=== PATIENT | male | born 1970 | race African-American/Black ===

== ENCOUNTER 2016-10-20 23:07 | Emergency (ER) | payer MEDICARE, MEDICAID ==
--- NOTE | 2016-10-21 10:20 | ER Document Report ---
ED Neuro Symptoms/Deficit - General Chief Complaint: Numbness Stated Complaint: SHORTNESS OF BREATH Time seen by provider: 10:03 Mode of Arrival: Ambulatory Notes: 46 yo male came into ER last night via ambulance due to c/o tingling. like pins and needles to whole head, uncoordinated gait with left leg, weak left arm, numbness to left face after smoking crack for 2 days, last 7 pm last night. Hx HIV, metastatic anal cancer. Last radiation and chemotherapy were august. No fever. TRAVEL OUTSIDE OF THE [place] IN LAST 30 DAYS: No - Related Data Allergies/Adverse Reactions: ciprofloxacin [Ciprofloxacin] Allergy (Intermediate, Verified 06/29/16 10:08) rash Sulfa (Sulfonamide Antibiotics) Allergy (Intermediate, Verified 06/29/16 10:08) rash tetracycline [Tetracycline] Allergy (Intermediate, Verified 06/29/16 10:08) hives, rash silver [From Tegaderm AG Mesh] Adverse Reaction (Severe, Verified 06/29/16 10:08 ) rash codeine [Codeine] Adverse Reaction (Intermediate, Verified 06/29/16 10:08) upset stomach Past Medical History - General Information source: Patient - Social History Smoking Status: Current Every Day Smoker Frequency of alcohol use: Occasional Drug Abuse: Cocaine, Marijuana Lives with: Alone Family History: CAD, DM, Hypertension, Thyroid Disfunction, Other - Brother heart attack at age 45 - Past Medical History Cardiac Medical History: Reports: Hx Hypertension Pulmonary Medical History: Reports: Hx Asthma, Hx Bronchitis, Hx Pneumonia Neurological Medical History: Reports: Hx Migraine Renal/ Medical History: Reports: Hx Benign Prostatic Hyperplasia, Hx Kidney Stones Malignancy Medical History: Reports Other - anal, liver, abdominal mets Skin Medical History: Reports Hx Cellulitis, Reports Hx Psoriasis Psychiatric Medical History: Reports: Hx Anxiety, Hx Bipolar Disorder, Hx Depression Infectious Medical History: Reports: Hx HIV Surgical Hx: Negative Past Surgical History: Reports: Hx Rectal Surgery, Other - Port-A-Cath, anal biopsy. Denies: Hx Pacemaker - Immunizations Immunizations up to date: Yes Hx Diphtheria, Pertussis, Tetanus Vaccination: Yes Hx Pneumococcal Vaccination: 04/26/15 Review of Systems - Review of Systems Constitutional: No symptoms reported EENT: No symptoms reported Cardiovascular: No symptoms reported Respiratory: No symptoms reported Gastrointestinal: No symptoms reported Genitourinary: No symptoms reported Male Genitourinary: No symptoms reported Musculoskeletal: No symptoms reported Skin: No symptoms reported Hematologic/Lymphatic: No symptoms reported Neurological/Psychological: See HPI Physical Exam - Vital signs Vitals: Temp Pulse Resp BP Pulse Ox 98.9 F 94 16 111/70 97 10/20/16 23:30 10/20/16 23:30 10/20/16 23:30 10/20/16 23:30 10/20/16 23:30 Interpretation: Normal - General General appearance: Appears well, Alert In distress: None - HEENT Head: Normocephalic, Atraumatic Eyes: Normal, Other - "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 No: Lymphadenopathy - Respiratory Respiratory status: No respiratory distress Chest status: Nontender Breath sounds: Normal Chest palpation: Normal - Cardiovascular Rhythm: Regular Heart sounds: Normal auscultation Murmur: No - Abdominal Inspection: Normal Distension: No distension Bowel sounds: Normal Tenderness: Nontender. No: Tender Organomegaly: No organomegaly - Back Back: Normal, Nontender - Extremities General upper extremity: Normal inspection, Nontender, Normal color, Normal ROM , Normal temperature General lower extremity: Normal inspection, Nontender, Normal color, Normal ROM , Normal temperature, Normal weight bearing. No: Davey's sign - Neurological Neuro grossly intact: Yes Cognition: Normal Orientation: AAOx4 Liv Coma Scale Eye Opening: Spontaneous [place] Coma Scale Verbal: Oriented [place] Coma Scale Motor: Obeys Commands [place] Coma Scale Total: 15 Speech: Normal Motor strength normal: LUE, RUE, LLE, RLE Sensory: Normal Notes: gait in room is stable. - Psychological Associated symptoms: Normal affect, Normal mood - Skin Skin Temperature: Warm Skin Moisture: Dry Skin Color: Normal Skin irregularity: negative: Rash Course - Re-evaluation Re-evalutation: 10/21/16 10:[address] bishop, he rec. MRI with and without 10/21/16 16:[address] avalos about disposisition, pt is drinking water, eating a meal tray. 3rd liter of normal saline, get repeat cpk to see if going down. 10/21/16 18:10 CPK is coming down to 845 he ate 2 meals and drinking water and had 3 L of fluid and Dr. Salcedo says that he can go home 10/21/16 18:19 pt validated resp rate of 36 or pulse ox of 93% but not confirmed by the nurse or I, recheck of vitals at this time is rr 18, pulse ox 98%. pt feels much better. - Vital Signs Vital signs: Temp Pulse Resp BP Pulse Ox 98.9 F 82 17 119/80 98 10/20/16 23:30 10/21/16 10:23 10/21/16 18:01 10/21/16 18:00 10/21/16 18:01 - Laboratory Result Diagrams: 10/21/16 11:20 10/21/16 12:45 Laboratory results interpreted by me: 10/21/16 10/21/16 10/21/16 11:20 12:45 13:35 WBC 2.8 L Plt Count 123 L Absolute Lymphocytes 0.4 L BUN 21 H Glucose 73 L Total Bilirubin 1.4 H AST 78 H Creatine Kinase 1131 H Urine Protein 100 H Urine Ketones 20 H Urine Urobilinogen 2.0 H 10/21/16 16:30 WBC Plt Count Absolute Lymphocytes BUN Glucose Total Bilirubin AST Creatine Kinase 848 H Urine Protein Urine Ketones Urine Urobilinogen Discharge - Discharge Clinical Impression: Cocaine abuse, Arm paresthesia, left, Left leg paresthesias, metastatic anal cancer Rhabdomyolysis Qualifiers: Rhabdomyolysis type: non-traumatic Qualified Code(s): M62.82 - Rhabdomyolysis Condition: Good Disposition: HOME, SELF-CARE Instructions: Dehydration ([facility]), Numbness or Paresthesia ([facility]), Cocaine Abuse ( [facility]) Additional Instructions: do not smoke marijuana or smoke crack drink 2 liters of water daily, continue to drink water tonight 1 more liter to er any new or worsening symptoms Please complete the patient satisfaction survey if you get one, and return it.. If you do not receive a survey, then you can go to the [facility] website, [email or web address] and place your comments about your very good care. Thank you very much. It was a pleasure being your medical provider today. Referrals: SUZIE THOMAS, [Primary Care Provider] - Follow up as needed
--- NOTE | 2016-10-21 11:09 | EKG REPORT ---
SEVERITY:- ABNORMAL ECG - SINUS RHYTHM ST ELEVATION SUGGESTS PERICARDITIS : Confirmed by: Rui Logan 21-Oct-2016 11:07:48
[2016-10-21 11:41] LABS: ABSOLUTE LYMPHOCYTES (AUTO) 0.4 10^3/uL (0.5-4.7); ABSOLUTE MONOCYTES (AUTO) 0.3 10^3/uL (0.1-1.4); BASOPHILS % (AUTO) 1.6 % (0-2); EOSINOPHILS % (AUTO) 1.1 % (0-6); HEMOGLOBIN 15.3 g/dL (13.5-17.0); HGB HCT DIFFERENCE 0.9; LYMPHOCYTES % (AUTO) 16.1 % (13-45); MEAN CORPUSCULAR HEMOGLOBIN 30.6 pg (27.0-33.4); MEAN CORPUSCULAR VOLUME 90 fl (80-97); MONOCYTES % (AUTO) 10.3 % (3-13); RED BLOOD COUNT 4.99 10^6/uL (4.35-5.55); RED CELL DISTRIBUTION WIDTH 13.6 % (11.5-14.0); SEGMENTED NEUTROPHILS % (AUTO) 70.9 % (42-78); WHITE BLOOD COUNT 2.8 10^3/uL (4.0-10.5)
[2016-10-21 13:23] LABS: ALANINE AMINOTRANSFERASE 59 U/L (21-72); ALBUMIN 4.6 g/dL (3.5-5.0); ALKALINE PHOSPHATASE 68 U/L (38-126); ANION GAP 16 (5-19); ASPARTATE AMINO TRANSFERASE 78 U/L (17-59); BILIRUBIN,DIRECT 0.3 mg/dL (0.0-0.4); BILIRUBIN,TOTAL 1.4 mg/dL (0.2-1.3); BLOOD UREA NITROGEN 21 mg/dL (7-20); CALCIUM 9.6 mg/dL (8.4-10.2); CARBON DIOXIDE 25 mmol/L (22-30); CHLORIDE 103 mmol/L (98-107); CREATINE KINASE 1131 U/L (55-170); GLUCOSE 73 mg/dL (75-110); POTASSIUM 3.8 mmol/L (3.6-5.0); SODIUM 144.3 mmol/L (137-145); TOTAL PROTEIN 8.1 g/dL (6.3-8.2)
[2016-10-21] MEDS ORDERED: NORMAL SALINE 1000 ML 1,000 ML IV ONE ×3 (13:27→16:05)
[2016-10-21 13:34] LABS: CREATINE KINASE MB 2.62 ng/mL (<4.55)
[2016-10-21 13:35] LABS: TROPONIN I < 0.012 ng/mL
[2016-10-21 14:26] LABS: APPEARANCE,URINE CLEAR; BILIRUBIN,URINE NEGATIVE (NEGATIVE); GLUCOSE, URINE NEGATIVE (NEGATIVE); KETONES,URINE 20 mg/dL (NEGATIVE); LEUKOCYTE ESTERASE,URINE NEGATIVE (NEGATIVE); NITRITE,URINE NEGATIVE (NEGATIVE); PROTEIN,URINE 100 mg/dL (NEGATIVE); URINE SPECIFIC GRAVITY 1.035
[2016-10-21 14:57] LABS: URINE BARBITURATES SCREEN NEGATIVE; URINE METHADONE SCREEN NEGATIVE; URINE OPIATES LOW NEGATIVE; URINE PHENCYCLIDINE SCREEN NEGATIVE
[2016-10-21 18:17] VITALS: BP 119/80
== END 2016-10-21 18:25 | disposition home or self-care (01) ==
LOC: ER 23:07
DX: F14.10 Cocaine abuse, uncomplicated (principal); R20.0 Anesthesia of skin; C78.5 Secondary malignant neoplasm of large intestine and rectum; M62.82 Rhabdomyolysis; R06.02 Shortness of breath; F12.10 Cannabis abuse, uncomplicated; I10 Essential (primary) hypertension; Z88.3 Allergy status to other anti-infective agents; Z88.2 Allergy status to sulfonamides; Z88.6 Allergy status to analgesic agent; Z87.442 Personal history of urinary calculi; Z21 Asymptomatic human immunodeficiency virus [HIV] infection status
CPT/HCPCS: 93005; 99285; 36415; 87040; 82553; 82550; 85025; 80053; 81001; 84484; 80307; 70553; 71010; 70450; 93010; A9577

== ENCOUNTER → 2016-11-02 | Outpatient (CLI) | payer MEDICARE, MEDICAID | LOC: RAD 17:57 | PROVIDERS: ATTEND Internal Medicine | DX: C21.1 Malignant neoplasm of anal canal (principal) | CPT/HCPCS: 78815; A9552 ==

== ENCOUNTER 2016-11-27 02:05 | Emergency (ER) | payer MEDICARE, MEDICAID ==
[2016-11-27] MEDS ORDERED: ASPIRIN 81 MG TABLET, CHEWABLE PO ONE (02:41)
[2016-11-27] MEDS ORDERED: NORMAL SALINE 1000 ML 1,000 ML IV ONE (02:41)
--- NOTE | 2016-11-27 02:44 | ER Document Report ---
ED General - General Chief Complaint: Numbness of Face Stated Complaint: RIGHT SIDED NUMBNESS Time seen by provider: 02:42 Notes: Patient is a 46-year-old male that comes emergency department for chief complaint of right-sided chest chest tightness, right-sided numbness and tingling sensation including his face, arm, side, and leg, and an episode where he felt lightheaded. Patient also states his mouth is very dry. Patient states he was doing cocaine for the past 3 days, right-sided chest tightness has been intermittent since he started, he also states that tonight he snorted a line that he felt was cocaine but afterwards he was told that it was methamphetamine. Patient states that after snorting the different line is when he started getting these symptoms. Patient has past medical history including hypertension, HIV, anal cancer with previous chemotherapy and radiation therapy , cocaine abuse. Patient denies smoking, denies personal history of cardiac disease, he does have family history of cardiac disease. He is still on hypertensive medications and antiviral medications. TRAVEL OUTSIDE OF THE [place] IN LAST 30 DAYS: No - Related Data Allergies/Adverse Reactions: ciprofloxacin [Ciprofloxacin] Allergy (Intermediate, Verified 06/29/16 10:08) rash Sulfa (Sulfonamide Antibiotics) Allergy (Intermediate, Verified 06/29/16 10:08) rash tetracycline [Tetracycline] Allergy (Intermediate, Verified 06/29/16 10:08) hives, rash silver [From Tegaderm AG Mesh] Adverse Reaction (Severe, Verified 06/29/16 10:08 ) rash codeine [Codeine] Adverse Reaction (Intermediate, Verified 06/29/16 10:08) upset stomach Past Medical History - General Information source: Patient - Social History Smoking Status: Never Smoker Frequency of alcohol use: None Drug Abuse: None Lives with: Family Family History: CAD, DM, Hypertension, Thyroid Disfunction, Other - Brother heart attack at age 45 Patient has suicidal ideation: No - pt denies Patient has homicidal ideation: No - pt denies - Past Medical History Cardiac Medical History: Reports: Hx Hypertension Denies: Hx Coronary Artery Disease, Hx Heart Attack Pulmonary Medical History: Reports: Hx Asthma, Hx Bronchitis, Hx Pneumonia Denies: Hx COPD, Hx Sleep Apnea, Hx Tuberculosis Neurological Medical History: Reports: Hx Migraine. Denies: Hx Cerebrovascular Accident, Hx Seizures Renal/ Medical History: Reports: Hx Benign Prostatic Hyperplasia, Hx Kidney Stones. Denies: Hx Peritoneal Dialysis Musculoskeltal Medical History: Denies Hx Arthritis Skin Medical History: Reports Hx Cellulitis, Reports Hx Psoriasis Psychiatric Medical History: Reports: Hx Anxiety, Hx Bipolar Disorder, Hx Depression Infectious Medical History: Reports: Hx HIV Past Surgical History: Reports: Hx Rectal Surgery, Other - Port-A-Cath, anal biopsy. Denies: Hx Pacemaker - Immunizations Immunizations up to date: Yes Hx Diphtheria, Pertussis, Tetanus Vaccination: Yes Hx Pneumococcal Vaccination: 04/26/15 Review of Systems - Review of Systems Constitutional: No symptoms reported EENT: No symptoms reported Cardiovascular: See HPI Respiratory: No symptoms reported Gastrointestinal: No symptoms reported Genitourinary: No symptoms reported Male Genitourinary: No symptoms reported Musculoskeletal: No symptoms reported Skin: No symptoms reported Hematologic/Lymphatic: No symptoms reported Neurological/Psychological: See HPI Physical Exam - Vital signs Vitals: Temp 98.3 F 11/27/16 02:12 Interpretation: Normal - General General appearance: Appears well, Alert In distress: None - HEENT Head: Normocephalic, Atraumatic Eyes: Normal Conjunctiva: Normal Extraocular movements intact: Yes Eyelashes: Normal Pupils: PERRL - Patient's pupils are normal, not significantly dilated Nasal: Normal Mouth/Lips: Normal Mucous membranes: Normal Pharynx: Normal Neck: Normal - Respiratory Respiratory status: No respiratory distress Chest status: Nontender Breath sounds: Normal. No: Decreased air movement, Wheezing Chest palpation: Normal - Cardiovascular Rhythm: Regular, Tachycardia - Borderline Heart sounds: Normal auscultation, S1 appreciated, S2 appreciated Murmur: No - Abdominal Inspection: Normal Distension: No distension Bowel sounds: Normal Tenderness: Nontender. No: Tender Organomegaly: No organomegaly - Back Back: Normal, Nontender. 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 He states that he thinks he is coming off of this a little bit, given IV fluids. Workup unremarkable including negative troponins despite symptoms going on for the past 3 days according to patient, EKG with no acute ischemic abnormality, shows borderline sinus tachycardia with no T-wave inversions or ST segment changes in consecutive leads, chest x-ray is unremarkable. Normal neurological exam, vague described symptoms, not consistent with a TIA, occurred immediately after patient had used amphetamines and resolved as this began to fade. Low suspicion of acute neurological abnormality. On reevaluation patient states he has some heartburn, requesting something for this, continues to be well appearing, tachycardia resolved my exam, requesting to leave. Patient states he felt like he was "going to a time", agrees that recovery from drugs or dangerous life-threatening and could likely kill him if he continues, he states he plans on stopping this now. Discussed follow-up with primary care, discussed return precautions, patient states understanding and agreement. - Vital Signs Vital signs: Temp Pulse Resp BP Pulse Ox 98.3 F 94 18 119/79 99 11/27/16 02:12 11/27/16 04:49 11/27/16 04:49 11/27/16 04:49 11/27/16 04:49 - Laboratory Result Diagrams: 11/27/16 02:27 11/27/16 02:27 Laboratory results interpreted by me: 11/27/16 11/27/16 02:27 02:27 WBC 3.6 L Sodium 149.1 H Glucose 120 H Calcium 10.3 H Direct Bilirubin 0.5 H Total Protein 9.0 H Discharge - Discharge Clinical Impression: Paresthesia, Recreational drug use, Right-sided chest pain Condition: Stable Disposition: HOME, SELF-CARE Additional Instructions: Laboratory workup shows no acute abnormalities. Do not use recreational drugs such as cocaine or methamphetamine. Follow-up with primary care. Return the emergency department for any returned or concerning worsening symptoms. Referrals: SUZIE THOMAS DO [Primary Care Provider] - Follow up as needed
[2016-11-27 03:05] LABS: ABSOLUTE LYMPHOCYTES (AUTO) 0.5 10^3/uL (0.5-4.7); ABSOLUTE MONOCYTES (AUTO) 0.4 10^3/uL (0.1-1.4); ABSOLUTE NEUT (AUTO) 2.7 10^3/uL (1.7-8.2); BASOPHILS % (AUTO) 0.3 % (0-2); EOSINOPHILS % (AUTO) 0.3 % (0-6); HEMOGLOBIN 14.6 g/dL (13.5-17.0); HGB HCT DIFFERENCE 0.8; LYMPHOCYTES % (AUTO) 14.2 % (13-45); MEAN CORPUSCULAR HEMOGLOBIN 30.1 pg (27.0-33.4); MEAN CORPUSCULAR VOLUME 89 fl (80-97); MONOCYTES % (AUTO) 11.2 % (3-13); RED BLOOD COUNT 4.85 10^6/uL (4.35-5.55); RED CELL DISTRIBUTION WIDTH 13.3 % (11.5-14.0); WHITE BLOOD COUNT 3.6 10^3/uL (4.0-10.5)
[2016-11-27 03:09] LABS: ALANINE AMINOTRANSFERASE 39 U/L (21-72); ALBUMIN 4.9 g/dL (3.5-5.0); ALKALINE PHOSPHATASE 79 U/L (38-126); ANION GAP 18 (5-19); ASPARTATE AMINO TRANSFERASE 33 U/L (17-59); BILIRUBIN,DIRECT 0.5 mg/dL (0.0-0.4); BILIRUBIN,TOTAL 0.9 mg/dL (0.2-1.3); BLOOD UREA NITROGEN 14 mg/dL (7-20); CALCIUM 10.3 mg/dL (8.4-10.2); CARBON DIOXIDE 25 mmol/L (22-30); CHLORIDE 106 mmol/L (98-107); CREATINE KINASE 142 U/L (55-170); GLUCOSE 120 mg/dL (75-110); POTASSIUM 4.2 mmol/L (3.6-5.0); SODIUM 149.1 mmol/L (137-145)
[2016-11-27 03:21] LABS: CREATINE KINASE MB 1.47 ng/mL (<4.55)
[2016-11-27 03:25] LABS: TROPONIN I < 0.012 ng/mL
[2016-11-27] MEDS ORDERED: FAMOTIDINE 20 MG TABLET PO ONE (04:29)
[2016-11-27] MEDS ORDERED: ONDANSETRON 4 MG TAB.RAPDIS PO ONE (04:29)
[2016-11-27 07:06] VITALS: BP 110/81
--- NOTE | 2016-11-27 08:15 | EKG REPORT ---
SEVERITY:- OTHERWISE NORMAL ECG - SINUS TACHYCARDIA : Confirmed by: Olu Torres MD 27-Nov-2016 08:14:53
== END 2016-11-27 07:10 | disposition home or self-care (01) ==
LOC: ER 02:05
DX: R20.0 Anesthesia of skin (principal); R07.9 Chest pain, unspecified; I10 Essential (primary) hypertension; B20 Human immunodeficiency virus [HIV] disease; F19.90 Other psychoactive substance use, unspecified, uncomplicated
CPT/HCPCS: 93005; 99284; 36415; 82553; 82550; 85025; 80053; 84484; 71010; 93010; A9270 ×3; J7030; S0119

== ENCOUNTER → 2017-02-03 | Outpatient (CLI) | payer MEDICARE, MEDICAID ==
--- NOTE | 2017-02-03 12:13 | RADIOLOGY REPORT (SQ) ---
EXAM DESCRIPTION: CT ABD/PELVIS WITH IV ORAL COMPLETED DATE/TIME: 02/03/2017 11:21 am REASON FOR STUDY: ANAL CANCER C21.1 MALIGNANT NEOPLASM OF ANAL CANAL COMPARISON: 05/15/2016 TECHNIQUE: CT scan of the abdomen and pelvis performed using helical scanning technique with dynamic intravenous contrast injection. No oral contrast. Images reviewed with lung, soft tissue, and bone windows. Reconstructed coronal and sagittal MPR images reviewed. Delayed images for evaluation of the urinary system also acquired. All images stored on PACS. All CT scanners at this facility use dose modulation, iterative reconstruction, and/or weight based d osing when appropriate to reduce radiation dose to as low as reasonably achievable (ALARA). [facility]: Dose Right [facility]: CareDose [facility]: Dose Right [facility]: Teradose 4D [facility]: T-Networks CONTRAST TYPE AND DOSE: contrast/concentration: Isovue 370.00 mg/ml; Total Contrast Delivered: 93.0 ml; Total Saline Delivered: 71.0 ml RENAL FUNCTION: Creatinine 1.0 RADIATION DOSE: Up-to-date CT equipment and radiation dose reduction techniques were employed. CTDIv ol: 6.2 - 7.3 mGy. DLP: 748 mGy-cm.. LIMITATIONS: None. FINDINGS: LOWER CHEST: No significant findings. No nodules or infiltrates. LIVER: Normal size. No masses. No dilated ducts. SPLEEN: Normal size. No focal lesions. PANCREAS: No masses. No significant calcifications. No adjacent inflammation or peripancreatic fluid collections. Pancreatic duct not dilated. GALLBLADDER: No identified stones by CT criteria. No inflammatory changes to suggest cholecystitis. ADRENAL GLANDS: No significant masses or asymmetry. RIGHT KIDNEY AND URETER: No solid masses. No significant calcifications. No hydronephrosis or hyd roureter. LEFT KIDNEY AND URETER: No solid masses. No significant calcifications. No hydronephrosis or hydr oureter. AORTA AND VESSELS: No aneurysm. No dissection. Renal arteries, SMA, celiac without stenosis. RETROPERITONEUM: No retroperitoneal adenopathy, hemorrhage or masses. BOWEL AND PERITONEAL CAVITY: No masses or inflammatory changes. No free fluid or peritoneal masses. Loop catheter remains in the rectum. APPENDIX: Normal. PELVIS: Previously described pelvic adenopathy has resolved. ABDOMINAL WALL: No masses. No hernias. BONES: No significant or acute findings. OTHER: No other significant finding. IMPRESSION: No evidence of metastatic disease in the abdomen or pelvis. TECHNICAL DOCUMENTATION: JOB ID: [id number] Quality ID # [id number]: Final reports with documentation of one or more dose reduction techniques (e.g., Au tomated exposure control, adjustment of the mA and/or kV according to patient size, use of iterative reconstruction technique) 2010 [employer]- All Rights Reserved
== END ==
LOC: RAD 09:57
PROVIDERS: ATTEND Internal Medicine
DX: C21.1 Malignant neoplasm of anal canal (principal)
CPT/HCPCS: 74177; 82565

== ENCOUNTER 2017-06-27 21:36 | Emergency (ER) | payer MEDICARE, MEDICAID ==
--- NOTE | 2017-06-27 23:59 | ER Document Report ---
ED General - General Chief Complaint: Drug Abuse Stated Complaint: TROUBLE BREATHING Time Seen by Provider: 06/27/17 23:51 Mode of Arrival: Ambulatory Information source: Patient Notes: This is a 46-year-old man with a history of hypertension, HIV, anal cancer who presents to the emergency room with chest pain. Patient states that he has had gradual onset of chest pain which is been constant since this morning. He does report alcohol use, marijuana and cocaine use. TRAVEL OUTSIDE OF THE [place] IN LAST 30 DAYS: No - HPI Onset: This morning Onset/Duration: Gradual Quality of pain: Dull Severity: Moderate Pain Level: 2 Associated symptoms: Chest pain. denies: Fever, Shortness of breath Exacerbated by: Denies Relieved by: Denies Similar symptoms previously: No Recently seen / treated by doctor: No - Related Data Allergies/Adverse Reactions: ciprofloxacin [Ciprofloxacin] Allergy (Intermediate, Verified 06/27/17 21:48) rash Sulfa (Sulfonamide Antibiotics) Allergy (Intermediate, Verified 06/27/17 21:48) rash tetracycline [Tetracycline] Allergy (Intermediate, Verified 06/27/17 21:48) hives, rash silver [From Tegaderm AG Mesh] Adverse Reaction (Severe, Verified 06/27/17 21:48 ) rash codeine [Codeine] Adverse Reaction (Intermediate, Verified 06/27/17 21:48) upset stomach Past Medical History - General Information source: Patient - Social History Smoking Status: Current Every Day Smoker Cigarette use (# per day): Yes Frequency of alcohol use: Heavy Drug Abuse: Cocaine, Marijuana Lives with: Spouse/Significant other Family History: CAD, DM, Hypertension, Thyroid Disfunction, Other - Brother heart attack at age 45 Patient has suicidal ideation: No Patient has homicidal ideation: No - Past Medical History Cardiac Medical History: Reports: Hx Hypertension Denies: Hx Coronary Artery Disease, Hx Heart Attack Pulmonary Medical History: Reports: Hx Asthma, Hx Bronchitis, Hx Pneumonia Denies: Hx COPD, Hx Sleep Apnea, Hx Tuberculosis Neurological Medical History: Reports: Hx Migraine. Denies: Hx Cerebrovascular Accident, Hx Seizures Renal/ Medical History: Reports: Hx Benign Prostatic Hyperplasia, Hx Kidney Stones. Denies: Hx Peritoneal Dialysis Musculoskeltal Medical History: Denies Hx Arthritis Skin Medical History: Reports Hx Cellulitis, Reports Hx Psoriasis Psychiatric Medical History: Reports: Hx Anxiety, Hx Bipolar Disorder, Hx Depression Infectious Medical History: Reports: Hx HIV Past Surgical History: Reports: Hx Rectal Surgery, Other - Port-A-Cath, anal biopsy. Denies: Hx Pacemaker - Immunizations Immunizations up to date: Yes Hx Diphtheria, Pertussis, Tetanus Vaccination: Yes Hx Pneumococcal Vaccination: 04/26/15 Review of Systems - Review of Systems Constitutional: denies: Chills, Fever EENT: No symptoms reported Cardiovascular: No symptoms reported Respiratory: No symptoms reported Gastrointestinal: No symptoms reported Genitourinary: No symptoms reported Male Genitourinary: No symptoms reported Musculoskeletal: See HPI Skin: No symptoms reported Hematologic/Lymphatic: No symptoms reported Neurological/Psychological: No symptoms reported Physical Exam - Vital signs Vitals: Temp Pulse Resp BP Pulse Ox 99.1 F 92 16 129/79 H 95 06/27/17 21:52 06/27/17 21:52 06/27/17 21:52 06/27/17 21:52 06/27/17 21:52 Notes: Physical exam: GENERAL: 46-year-old man, alert and oriented 3, no acute distress HEAD: Atraumatic, normocephalic. EYES: Pupils equal round and reactive to light, extraocular movements intact, sclera anicteric, conjunctiva are normal. ENT: TMs normal, nares patent, oropharynx clear without exudates. Moist mucous membranes. NECK: Normal range of motion, supple without obvious mass or JVD. LUNGS: Breath sounds clear to auscultation bilaterally and equal. No wheezes rales or rhonchi. HEART: Regular rate and rhythm without murmurs, rubs or gallops. ABDOMEN: Soft, normoactive bowel sounds. No tenderness to palpation. No guarding, no rebound. No masses appreciated. EXTREMITIES: Normal range of motion, no pitting or edema. No clubbing or cyanosis. NEUROLOGICAL: Cranial nerves II through XII grossly intact. Normal speech, moving all extremities. PSYCH: Normal mood, normal affect. SKIN: Warm, Dry, normal turgor, no rashes or lesions noted. Course - Vital Signs Vital signs: Temp Pulse Resp BP Pulse Ox 99.1 F 92 20 121/81 98 06/27/17 21:52 06/27/17 21:52 06/28/17 02:01 06/28/17 02:01 06/28/17 02:01 - Laboratory Result Diagrams: 06/28/17 00:40 06/28/17 00:40 Laboratory results interpreted by me: 06/28/17 06/28/17 00:40 00:40 WBC 3.2 L Sodium 145.9 H Creatine Kinase 640 H - Diagnostic Test Radiology reviewed: Image reviewed, Reports reviewed - Chest x-ray shows no infiltrates or effusions - EKG Interpretation by Me Rate: Normal Rhythm: NSR - EKG shows normal sinus rhythm with a ventricular rate of 89, no acute ST-T wave changes Discharge - Discharge Clinical Impression: Chest wall pain Condition: Stable Disposition: HOME, SELF-CARE Instructions: Chest Wall Pain ([facility]) Additional Instructions: As we discussed, your chest x-ray looked good, your EKG looked very good as well , your heart labs, electrolytes and kidney functions look good as well. Recommendations: Try to avoid the marijuana and cocaine. Continue current medicines Follow-up with your primary care doctor (Dr. Cueva). Return to the emergency room for any worsening symptoms. Referrals: SUZIE CUEVA, [Primary Care Provider] - Follow up as needed
[2017-06-28 00:53] LABS: ABSOLUTE MONOCYTES (AUTO) 0.3 10^3/uL (0.1-1.4)
--- NOTE | 2017-06-28 00:55 | RADIOLOGY REPORT (SQ) ---
EXAM DESCRIPTION: CHEST PA/LAT COMPLETED DATE/TIME: 06/28/2017 12:16 am REASON FOR STUDY: SOB COMPARISON: 07.16.16 EXAM PARAMETERS: NUMBER OF VIEWS: two views TECHNIQUE: Digital Frontal and Lateral radiographic views of the chest acquired. RADIATION DOSE: NA LIMITATIONS: none FINDINGS: LUNGS AND PLEURA: No opacities, masses or pneumothorax. No pleural effusion. MEDIASTINUM AND HILAR STRUCTURES: No masses or contour abnormalities. HEART AND VASCULAR STRUCTURES: Heart normal size. No evidence for failure. BONES: No acute findings. HARDWARE: Mini port central line tip at the right atrium ; consider 9 cm retraction. OTHER: No other significant finding. IMPRESSION: No acute cardiopulmonary findings. Mini port central line tip at the right atrium ; con building coordinator 9 cm retraction. TECHNICAL DOCUMENTATION: JOB ID: [id number] [employer]- All Rights Reserved
[2017-06-28 01:00] LABS: ABSOLUTE LYMPHOCYTES (AUTO) 0.9 10^3/uL (0.5-4.7); BASOPHILS % (AUTO) 0.7 % (0-2); EOSINOPHILS % (AUTO) 0.4 % (0-6); HEMATOCRIT 40.5 % (37.9-51.0); HGB HCT DIFFERENCE 1.5; LYMPHOCYTES % (AUTO) 28.8 % (13-45); MEAN CORPUSCULAR HEMOGLOBIN 30.3 pg (27.0-33.4); MEAN CORPUSCULAR HGB CONC 34.7 g/dL (32.0-36.0); MEAN CORPUSCULAR VOLUME 87 fl (80-97); MONOCYTES % (AUTO) 8.7 % (3-13); RED BLOOD COUNT 4.63 10^6/uL (4.35-5.55); RED CELL DISTRIBUTION WIDTH 13.7 % (11.5-14.0); SEGMENTED NEUTROPHILS % (AUTO) 61.4 % (42-78); WHITE BLOOD COUNT 3.2 10^3/uL (4.0-10.5)
[2017-06-28 01:09] LABS: ALANINE AMINOTRANSFERASE 39 U/L (21-72); ALBUMIN 4.9 g/dL (3.5-5.0); ALKALINE PHOSPHATASE 69 U/L (38-126); ANION GAP 16 (5-19); ASPARTATE AMINO TRANSFERASE 39 U/L (17-59); BILIRUBIN,DIRECT 0.3 mg/dL (0.0-0.4); BILIRUBIN,TOTAL 0.8 mg/dL (0.2-1.3); BLOOD UREA NITROGEN 8 mg/dL (7-20); CALCIUM 9.6 mg/dL (8.4-10.2); CARBON DIOXIDE 25 mmol/L (22-30); CHLORIDE 105 mmol/L (98-107); CREATINE KINASE 640 U/L (55-170); CREATININE RESULT 0.98 mg/dL (0.52-1.25); GLUCOSE 92 mg/dL (75-110); SODIUM 145.9 mmol/L (137-145); TOTAL PROTEIN 8.2 g/dL (6.3-8.2)
[2017-06-28 01:21] LABS: CREATINE KINASE MB 4.07 ng/mL (<4.55)
[2017-06-28 01:22] LABS: TROPONIN I < 0.012 ng/mL
[2017-06-28 02:29] VITALS: BP 121/81
--- NOTE | 2017-06-28 09:11 | EKG REPORT ---
SEVERITY:- BORDERLINE ECG - SINUS RHYTHM EARLY TRANSITION. : Confirmed by: Olu Torres MD 28-Jun-2017 09:10:59
== END 2017-06-28 02:43 | disposition home or self-care (01) ==
LOC: ER 21:36
DX: R07.89 Other chest pain (principal); I10 Essential (primary) hypertension; Z21 Asymptomatic human immunodeficiency virus [HIV] infection status; Z88.1 Allergy status to other antibiotic agents; Z88.2 Allergy status to sulfonamides; J45.909 Unspecified asthma, uncomplicated; Z85.9 Personal history of malignant neoplasm, unspecified; Z82.49 Family history of ischemic heart disease and other diseases of the circulatory system
CPT/HCPCS: 36415; 71020; 80053; 82550; 82553; 84484; 85025; 93005; 93010; 99285

== ENCOUNTER → 2017-08-06 | Outpatient (CLI) | payer MEDICARE, MEDICAID ==
--- NOTE | 2017-08-06 14:35 | RADIOLOGY REPORT (SQ) ---
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 The patient is less than 50 years old. TECHNIQUE: CT scan of the chest performed using helical scanning technique with dynamic intravenous contrast injection. Images reviewed with lung, soft tissue and bone windows. Reconstructed coronal a nd sagittal MPR images reviewed. All images stored on PACS. CT scan of the abdomen and pelvis performed with intravenous and with oral contrastusing helical scan brie technique with dynamic intravenous contrast injection. Images reviewed with lung, soft tissue a nd bone windows. Reconstructed coronal and sagittal MPR images reviewed. Delayed images for evaluat ion of the urinary system also acquired and evaluated. All images stored on PACS. All CT scanners at this facility use dose modulation, iterative reconstruction, and/or weight based d osing when appropriate to reduce radiation dose to as low as reasonably achievable (ALARA). [facility]: Dose Right [facility]: CareDose [facility]: Dose Right [facility]: Teradose 4D [facility]: Smart Technologies RADIATION DOSE: CT Rad equipment meets quality standard of care and radiation dose reduction techniq ues were employed. CTDIvol: 6.8 - 9.1 mGy. DLP: 1295 mGy-cm. . LIMITATIONS: None. FINDINGS: CHEST: LUNGS AND PLEURA: There are small foci of lung parenchymal scarring in the right lung apex, left uppe r lobe, lingula, and right lung base all stable compared to 2016. No worrisome parenchymal nodules f or metastatic disease. No pleural effusion. No pneumothorax. HILAR AND MEDIASTINAL STRUCTURES: No identified masses or abnormal nodes. HEART AND VASCULAR STRUCTURES: No aneurysm or dissection. No central pulmonary emboli. No pericardi al effusion. HARDWARE: Right-sided permanent central line tip in the right atrium. THYROID AND OTHER SOFT TISSUES: Thyroid unremarkable. Stable lipoma or dermoid at the sternal notch, 3.5 cm in diameter. BONES: No significant finding. OTHER: No other significant finding. ABDOMEN AND PELVIS: LIVER: Normal size. No masses. No dilated ducts. SPLEEN: Normal size. No focal lesions. PANCREAS: No masses. No significant calcifications. No adjacent inflammation or peripancreatic fluid collections. Pancreatic duct not dilated. GALLBLADDER: No identified stones by CT criteria. No inflammatory changes to suggest cholecystitis. ADRENAL GLANDS: No significant masses or asymmetry. RIGHT KIDNEY AND URETER: No solid masses. No significant calcification. No hydronephrosis or hydroure ter. LEFT KIDNEY AND URETER: No solid masses. No significant calcification. No hydronephrosis or hydrouret er. AORTA AND VESSELS: No aneurysm. No dissection. Renal arteries, SMA, celiac without stenosis. RETROPERITONEUM: No retroperitoneal adenopathy, hemorrhage or masses. BOWEL AND PERITONEAL CAVITY: No masses or inflammatory changes. No free fluid or peritoneal masses. APPENDIX: Normal. ABDOMINAL WALL: No masses. No hernias. BONES: No significant or acute findings. PELVIS: No other significant finding. No masses or adenopathy. IMPRESSION: No CT evidence of recurrent or metastatic disease to the chest abdomen or pelvis TECHNICAL DOCUMENTATION: JOB ID: [id number] Quality ID # [id number]: Final reports with documentation of one or more dose reduction techniques (e.g., Au tomated exposure control, adjustment of the mA and/or kV according to patient size, use of iterative reconstruction technique) 2010 [employer]- All Rights Reserved
== END ==
LOC: RAD 08:57
PROVIDERS: ATTEND Internal Medicine
DX: C21.1 Malignant neoplasm of anal canal (principal)
CPT/HCPCS: 71260; 74177

== ENCOUNTER 2017-09-19 16:13 | Emergency (ER) | payer OTHER, MEDICARE, MEDICAID ==
[2017-09-19] MEDS ORDERED: OXYCODONE-ACETAMINOPHEN 5-325 MG TABLET PO ONE (17:29)
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
[2017-09-19 19:10] VITALS: BP 118/73
== END 2017-09-19 19:30 | disposition home or self-care (01) ==
LOC: ER 16:13
DX: S63.502A Unspecified sprain of left wrist, initial encounter (principal); S93.402A Sprain of unspecified ligament of left ankle, initial encounter; S39.012A Strain of muscle, fascia and tendon of lower back, initial encounter; V59.59XA Passenger in pick-up truck or van injured in collision with other motor vehicles in traffic accident, initial encounter; I10 Essential (primary) hypertension; J45.909 Unspecified asthma, uncomplicated; Z21 Asymptomatic human immunodeficiency virus [HIV] infection status; Z88.1 Allergy status to other antibiotic agents; Z88.2 Allergy status to sulfonamides; Z85.048 Personal history of other malignant neoplasm of rectum, rectosigmoid junction, and anus
CPT/HCPCS: 99284; 73610; 72110; 72070; 73110; L1902; L3908

== ENCOUNTER 2017-09-22 08:43 | Emergency (ER) | payer OTHER, MEDICARE, MEDICAID ==
[2017-09-22 08:48] VITALS: BP 121/96
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
== END 2017-09-22 09:20 | disposition home or self-care (01) ==
LOC: ER 08:43
DX: S29.012A Strain of muscle and tendon of back wall of thorax, initial encounter (principal); V49.9XXA Car occupant (driver) (passenger) injured in unspecified traffic accident, initial encounter; Z87.891 Personal history of nicotine dependence; I10 Essential (primary) hypertension; J45.909 Unspecified asthma, uncomplicated; Z21 Asymptomatic human immunodeficiency virus [HIV] infection status
CPT/HCPCS: 99281

== ENCOUNTER 2017-12-13 12:08 | Emergency (ER) | payer OTHER, MEDICARE, MEDICAID ==
--- NOTE | 2017-12-13 12:19 | ER Document Report ---
ED Psych Disorder / Suicide - General Mode of Arrival: Medic Information source: Emergency Med Personnel Cannot obtain history due to: Intoxicated TRAVEL OUTSIDE OF THE [place] IN LAST 30 DAYS: No - HPI Patient complains to provider of: Overdose Onset: This morning Onset was: Cannot confirm Quality of pain: No pain - NONE APPARENT Suicide Risk Factors: Male, Other mental health dx. Suicide Attempt Method: Overdose Overdose of: Alcohol, Anticholinergic - MECLIZINE, Benzodiazepine, Other - HCTZ , COCAINE Strength: 10 mg VALIUM Amount: 25 Time of ingestion: 10:00 Associated symptoms: Other - STUPOROUS <FEDERICO MATTA - Last Filed: 12/13/17 18:33> <TED FRANK - Last Filed: 12/14/17 09:35> - General Chief Complaint: Overdose Stated Complaint: PSYCH EVAL Time Seen by Provider: 12/13/17 12:19 - Related Data Allergies/Adverse Reactions: ciprofloxacin [Ciprofloxacin] Allergy (Intermediate, Verified 09/22/17 08:44) rash Sulfa (Sulfonamide Antibiotics) Allergy (Intermediate, Verified 09/22/17 08:44) rash tetracycline [Tetracycline] Allergy (Intermediate, Verified 09/22/17 08:44) hives, rash silver [From Tegaderm AG Mesh] Adverse Reaction (Severe, Verified 09/22/17 08:44 ) rash codeine [Codeine] Adverse Reaction (Intermediate, Verified 09/22/17 08:44) upset stomach Past Medical History - General Information source[facility] Records Cannot obtain history due to: Intoxicated - Social History Smoking Status: Unknown if Ever Smoked Family History: CAD, DM, Hypertension, Thyroid Disfunction, Other - Brother heart attack at age 45 Patient has suicidal ideation: Yes - EMS REPORTS HE VERBALIZED SAME TODAY - Past Medical History Cardiac Medical History: Reports: Hx Hypertension Denies: Hx Coronary Artery Disease, Hx Heart Attack Pulmonary Medical History: Reports: Hx Asthma, Hx Bronchitis, Hx Pneumonia Denies: Hx COPD, Hx Sleep Apnea, Hx Tuberculosis Neurological Medical History: Reports: Hx Migraine. Denies: Hx Cerebrovascular Accident, Hx Seizures Renal/ Medical History: Reports: Hx Benign Prostatic Hyperplasia, Hx Kidney Stones. 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 Denies: Hx Pacemaker - Immunizations Immunizations up to date: Yes Hx Diphtheria, Pertussis, Tetanus Vaccination: Yes Hx Pneumococcal Vaccination: 04/26/15 <FEDERICO MATTA - Last Filed: 12/13/17 18:33> Review of Systems - Review of Systems -: Yes ROS unobtainable due to patient's medical condition <FEDERICO MATTA - Last Filed: 12/13/17 18:33> Physical Exam - Vital signs Interpretation: Tachypneic. No: Hypotensive, Hypertensive - General General appearance: Lethargic - RESPONDS TO PAIN. No: Alert In distress: None - HEENT Head: Normocephalic Eyes: Normal Conjunctiva: Normal Ears: Normal Nasal: Normal Mouth/Lips: Normal Mucous membranes: Dry - Respiratory Respiratory status: No respiratory distress Breath sounds: Normal - Cardiovascular Rhythm: Regular Heart sounds: Normal auscultation Murmur: No - Abdominal Inspection: Normal Distension: No distension Bowel sounds: Hypoactive - Extremities General upper extremity: Normal inspection General lower extremity: Normal inspection - Neurological Neuro grossly intact: No - STUPOROUS, LOCALIZES PAIN & MOANS & OPENS EYES Liv Coma Scale Eye Opening: To Pain Liv Coma Scale Verbal: Confused - SAID "THANK YOU" EXAMINER WAS LEAVING ROOM [place] Coma Scale Motor: Localizes to Pain Liv Coma Scale Total: 11 - Psychological Associated symptoms: Other - UNABLE TO ASSESS - Skin Skin Temperature: Warm Skin Moisture: Dry Skin Color: Normal Skin Turgor: Elastic <FEDERICO MATTA - Last Filed: 12/13/17 18:33> - Vital signs Vitals: Resp Pulse Ox 22 H 96 12/13/17 12:16 12/13/17 12:16 Course - Laboratory Result Diagrams: 12/13/17 12:30 12/13/17 12:30 - EKG Interpretation by Nc EKG shows normal: Sinus rhythm, [place], Intervals, QRS Complexes, ST-T Waves Rate: Normal Rhythm: NSR <FEDERICO MATTA - Last Filed: 12/13/17 18:33> - Laboratory Result Diagrams: 12/13/17 12:30 12/13/17 12:30 <TED FRANK - Last Filed: 12/14/17 09:35> - Re-evaluation Re-evalutation: 12/14/17 09:35 Patient evaluated and assessed, has no medical complaint. Resting comfortably. Available records and notes are reviewed. Exam shows patient to be resting comfortably, normal respiratory excursion, nonfocal exam, otherwise benign. Disposition pending final psychiatric assessment and evaluation. (TED FRANK) - Vital Signs Vital signs: Temp Pulse Resp BP Pulse Ox 97.6 F 0 L 107/76 99 12/14/17 06:38 12/14/17 06:01 12/14/17 06:01 12/14/17 06:01 - Laboratory Laboratory results interpreted by me: 12/13/17 12/13/17 12/13/17 12:30 12:30 12:30 WBC 2.9 L Hgb 13.1 L Absolute Neutrophils 1.5 L Sodium 145.2 H Potassium 3.5 L Creatine Kinase 461 H CK-MB (CK-2) 4.73 H Salicylates < 1.0 L Acetaminophen < 10 L 12/13/17 18:47 WBC Hgb Absolute Neutrophils Sodium Potassium Creatine Kinase CK-MB (CK-2) Salicylates Acetaminophen < 10 L Discharge <FEDERICO MATTA - Last Filed: 12/13/17 18:33> <TED FRANK - Last Filed: 12/14/17 09:35> - Discharge Clinical Impression: Suicidal overdose Qualifiers: Encounter type: initial encounter Qualified Code(s): T50.902A - Poisoning by unspecified drugs, medicaments and biological substances, intentional self-harm , initial encounter Condition: Good Disposition: PSYCH HOSP/UNIT
[2017-12-13] MEDS ORDERED: CARVEDILOL 6.25 MG TABLET PO ONE (12:24)
[2017-12-13 12:58] LABS: ABSOLUTE LYMPHOCYTES (AUTO) 1.1 10^3/uL (0.5-4.7); ABSOLUTE MONOCYTES (AUTO) 0.3 10^3/uL (0.1-1.4); ABSOLUTE NEUT (AUTO) 1.5 10^3/uL (1.7-8.2); BASOPHILS % (AUTO) 0.6 % (0-2); EOSINOPHILS % (AUTO) 0.2 % (0-6); HEMATOCRIT 38.7 % (37.9-51.0); HEMOGLOBIN 13.1 g/dL (13.5-17.0); LYMPHOCYTES % (AUTO) 38.9 % (13-45); MEAN CORPUSCULAR HEMOGLOBIN 29.7 pg (27.0-33.4); MEAN CORPUSCULAR HGB CONC 33.8 g/dL (32.0-36.0); MEAN CORPUSCULAR VOLUME 88 fl (80-97); MONOCYTES % (AUTO) 9.7 % (3-13); PLATELET COUNT 184 10^3/uL (150-450); RED BLOOD COUNT 4.41 10^6/uL (4.35-5.55); RED CELL DISTRIBUTION WIDTH 13.9 % (11.5-14.0); SEGMENTED NEUTROPHILS % (AUTO) 50.6 % (42-78); TOTAL CELLS COUNTED % (AUTO) 100 %; WHITE BLOOD COUNT 2.9 10^3/uL (4.0-10.5)
[2017-12-13] MEDS ORDERED: NORMAL SALINE 1000 ML 500 ML IV PRN (13:05)
[2017-12-13 13:07] LABS: ALANINE AMINOTRANSFERASE 36 U/L (21-72); ALBUMIN 4.3 g/dL (3.5-5.0); ALKALINE PHOSPHATASE 62 U/L (38-126); ANION GAP 13 (5-19); ASPARTATE AMINO TRANSFERASE 39 U/L (17-59); BILIRUBIN,DIRECT 0.4 mg/dL (0.0-0.4); BILIRUBIN,TOTAL 0.5 mg/dL (0.2-1.3); BLOOD UREA NITROGEN 12 mg/dL (7-20); CALCIUM 9.5 mg/dL (8.4-10.2); CARBON DIOXIDE 29 mmol/L (22-30); CHLORIDE 103 mmol/L (98-107); CREATINE KINASE 461 U/L (55-170); GLUCOSE 97 mg/dL (75-110); POTASSIUM 3.5 mmol/L (3.6-5.0); SODIUM 145.2 mmol/L (137-145); TOTAL PROTEIN 7.7 g/dL (6.3-8.2)
[2017-12-13 13:09] LABS: ACETAMINOPHEN < 10 ug/mL (10-30); ALCOHOL < 10 mg/dL (NONE DETECTED); SALICYLATE < 1.0 mg/dL (2.0-20.0)
[2017-12-13 13:17] LABS: CREATINE KINASE MB 4.73 ng/mL (<4.55)
[2017-12-13 13:18] LABS: TROPONIN I < 0.012 ng/mL
[2017-12-13] MEDS ORDERED: NORMAL SALINE 1000 ML 1,000 ML IV PRN (15:49)
--- NOTE | 2017-12-13 16:15 | EKG REPORT ---
SEVERITY:- NORMAL ECG - SINUS RHYTHM : Confirmed by: Rui Logan 13-Dec-2017 16:14:36
--- NOTE | 2017-12-13 17:34 | PSYCHOLOGICAL NOTE ---
Psych Note - Psych Note Psych Note: Reason for consult: Allegedly suicidal ideation/intentional overdose Contact Permissions: None Eval: 5:15 PM final disposition: 5:30 PM Patient is a 47 year old male. Patient stated " I did not take those pills for a good time". Patient stated " where am I". Medication recommendations made by contracted [facility] provider Dr. Thiago MD includes: None Diagnosis: At this time not enough information was provided Impression/Plan: Recommendation for involuntary commitment petition only, mental health to reassess at a later time. Clinician observed patient's speech was slurred. Patient was unable to answer assessment questions due to being under the influence of multiple pills. Patient's physician stated per EMS patient took 25 tabs of Valium and smoked "crack" while endorsing suicidal ideation, and stated it was intentional. Attending physician in agreement with plan and disposition. Consulted with Dr. Faulkner regarding the management and care of patient.
[2017-12-13 19:00] LABS: APPEARANCE,URINE CLEAR; BILIRUBIN,URINE NEGATIVE (NEGATIVE); COLOR,URINE YELLOW; GLUCOSE, URINE NEGATIVE (NEGATIVE); KETONES,URINE NEGATIVE (NEGATIVE); LEUKOCYTE ESTERASE,URINE NEGATIVE (NEGATIVE); NITRITE,URINE NEGATIVE (NEGATIVE); PROTEIN,URINE NEGATIVE (NEGATIVE); UROBILINOGEN,URINE NEGATIVE mg/dL (<2.0)
[2017-12-13 19:18] LABS: URINE AMPHETAMINES SCREEN NEGATIVE; URINE BARBITURATES SCREEN NEGATIVE; URINE BENZODIAZEPINES SCREEN UNCONFIRMED POSITIVE; URINE COCAINE SCREEN UNCONFIRMED POSITIVE; URINE MARIJUANA (THC) SCREEN NEGATIVE; URINE METHADONE SCREEN NEGATIVE; URINE PHENCYCLIDINE SCREEN NEGATIVE
--- NOTE | 2017-12-14 09:52 | PSYCHOLOGICAL NOTE ---
Psych Note - Psych Note Psych Note: Reason for consult: Overdose/ IVC re-eval Contact Permissions: None Patient is a 47 year old male. Patient reports he has been smoking crack cocaine for over 10 years . Patient reports he has tried to stop in the past and can go a day without using. Patient reports he was using throughout the day yesterday. Patient reports that "he guesses" he may have made comments about suicide when he was high because he also took his pills of valium with it. Patient reports he took the valium because it is prescribed to him as he has a disease that it helps deal with. Patient reports he does not want to go to a detox facility. Patient reports he does not feel like hurt, harming, or killing himself or others. Patient reports he has never been to an inpatient psychiatric facility before. Patient reports he does not have a therapy provider in the community, patient reports he has never had a mental health diagnosis before. Diagnosis: 304.20 (F14.20) Cocaine Use Disorder, Moderate Impression/Plan: Recommendation to rescind involuntary commitment due to patient not meeting criteria [place] GS 122C. Patient denied SI/HI and is not responding to internal stimuli at this time. Clinician observed patient disclosed he has utilized crack cocaine for approximately 10 years.Clinician provided education regarding substance use disorder, and effects to health. Clinician coordinated with [facility] for continuity of care, providing patient information, patient stated he would contact [facility] upon discharge for a full assessment for substance use treatment but would not go to detox. Attending physician in agreement with plan and disposition. Consulted with Dr. Faulkner regarding the management and care of patient.
[2017-12-14 10:54] VITALS: BP 117/78
== END 2017-12-14 12:22 | disposition home or self-care (01) ==
LOC: ER 12:08
DX: T50.902A Poisoning by unspecified drugs, medicaments and biological substances, intentional self-harm, initial encounter (principal); F14.90 Cocaine use, unspecified, uncomplicated; F19.10 Other psychoactive substance abuse, uncomplicated; R06.82 Tachypnea, not elsewhere classified; I10 Essential (primary) hypertension; J45.909 Unspecified asthma, uncomplicated
CPT/HCPCS: 93005; 99285; 96360; 96361; 36415; 82553; 80307 ×4; 82550; 85025; 80053; 81001; 84484; 93010; J7030

== ENCOUNTER 2017-12-14 12:52 | Emergency (ER) | payer OTHER, MEDICARE, MEDICAID ==
--- NOTE | 2017-12-14 13:10 | ER Document Report ---
ED Medical Screen (RME) - General Chief Complaint: Fall Stated Complaint: FALL DIZZY Time Seen by Provider: 12/14/17 12:59 Notes: RAPID MEDICAL EVALUATION DISCLOSURE I have seen this patient as part of a Rapid Medical Evaluation and, if applicable, placed any initially appropriate orders. The patient will be seen and fully evaluated, including a full history and physical exam, by a provider ( in Main ED or Fast Track) when a room becomes available. 47-year-old male just discharged here from the ED after evaluation for suicidal ideations and overdose, back again because he walked into the lobby and "became lightheaded and passed out". He fell onto his right side and hit his head. He does not think he takes any blood thinners. He does not have pain elsewhere but does note he feels short of breath. EXAM No right-sided scalp soft tissue swelling or TTP No cervical spine or paracervical muscle TTP TRAVEL OUTSIDE OF THE [place] IN LAST 30 DAYS: No - Related Data Allergies/Adverse Reactions: ciprofloxacin [Ciprofloxacin] Allergy (Intermediate, Verified 12/14/17 13:02) rash Sulfa (Sulfonamide Antibiotics) Allergy (Intermediate, Verified 12/14/17 13:02) rash tetracycline [Tetracycline] Allergy (Intermediate, Verified 12/14/17 13:02) hives, rash silver [From Tegaderm AG Mesh] Adverse Reaction (Severe, Verified 12/14/17 13:02 ) rash codeine [Codeine] Adverse Reaction (Intermediate, Verified 12/14/17 13:02) upset stomach Past Medical History - Social History Chew tobacco use (# tins/day): No - Past Medical History Cardiac Medical History: Reports: Hx Hypertension Denies: Hx Coronary Artery Disease, Hx Heart Attack Pulmonary Medical History: Reports: Hx Asthma, Hx Bronchitis, Hx Pneumonia Denies: Hx COPD, Hx Sleep Apnea, Hx Tuberculosis Neurological Medical History: Reports: Hx Migraine. Denies: Hx Cerebrovascular Accident, Hx Seizures Renal/ Medical History: Reports: Hx Benign Prostatic Hyperplasia, Hx Kidney Stones. Denies: Hx Peritoneal Dialysis Musculoskeltal Medical History: Denies Hx Arthritis Skin Medical History: Reports Hx Cellulitis, Reports Hx Psoriasis Psychiatric Medical History: Reports: Hx Anxiety, Hx Bipolar Disorder, Hx Depression Infectious Medical History: Reports: Hx HIV Past Surgical History: Reports: Hx Rectal Surgery, Other - Port-A-Cath, anal biopsy. Denies: Hx Pacemaker - Immunizations Immunizations up to date: Yes Hx Diphtheria, Pertussis, Tetanus Vaccination: Yes Physical Exam - Vital signs Vitals: Temp Pulse BP Pulse Ox 97.8 F 104 H 155/107 H 98 12/14/17 12:58 12/14/17 12:58 12/14/17 12:58 12/14/17 12:58 Course - Vital Signs Vital signs: Temp Pulse Resp BP Pulse Ox 97.8 F 104 H 155/107 H 98 12/14/17 12:58 12/14/17 12:58 12/14/17 12:58 12/14/17 12:58
--- NOTE | 2017-12-14 13:54 | RADIOLOGY REPORT (SQ) ---
EXAM DESCRIPTION: CHEST 2 VIEWS COMPLETED DATE/TIME: 12/14/2017 1:43 pm REASON FOR STUDY: SOB COMPARISON: Two-view chest 06/28/2017 EXAM PARAMETERS: NUMBER OF VIEWS: two views TECHNIQUE: Digital Frontal and Lateral radiographic views of the chest acquired. RADIATION DOSE: NA LIMITATIONS: none FINDINGS: LUNGS AND PLEURA: No opacities, masses or pneumothorax. No pleural effusion. MEDIASTINUM AND HILAR STRUCTURES: No masses or contour abnormalities. HEART AND VASCULAR STRUCTURES: Heart normal size. No evidence for failure. BONES: No acute findings. HARDWARE: Right-sided permanent central line tip in the right atrium. OTHER: No other significant finding. IMPRESSION: No acute changes TECHNICAL DOCUMENTATION: JOB ID: [id number] [employer]- All Rights Reserved Reading location - IP/workstation name: [email or web address]
--- NOTE | 2017-12-14 13:55 | RADIOLOGY REPORT (SQ) ---
EXAM DESCRIPTION: CT HEAD WITHOUT COMPLETED DATE/TIME: 12/14/2017 1:44 pm REASON FOR STUDY: s/p fall in lobby, hit head COMPARISON: CT brain 10/21/2016, 02/16/2012 TECHNIQUE: Axial images acquired through the brain without intravenous contrast. Images reviewed wi th bone, brain and subdural windows. Additional sagittal and coronal reconstructions were generated. Images stored on PACS. All CT scanners at this facility use dose modulation, iterative reconstruction, and/or weight based d osing when appropriate to reduce radiation dose to as low as reasonably achievable (ALARA). [facility]: Dose Right [facility]: CareDose [facility]: Dose Right [facility]: Teradose 4D [facility]: Picosun RADIATION DOSE: CT Rad equipment meets quality standard of care and radiation dose reduction techniq ues were employed. CTDIvol: 53.2 mGy. DLP: 1044 mGy-cm. mGy. LIMITATIONS: None. FINDINGS: VENTRICLES: Normal size and contour. CEREBRUM: No masses. No hemorrhage. No midline shift. No evidence for acute infarction. Normal gra y/white matter differentiation. No areas of low density in the white matter. CEREBELLUM: No masses. No hemorrhage. No alteration of density. No evidence for acute infarction. EXTRAAXIAL SPACES: No fluid collections. No masses. ORBITS AND GLOBE: No intra- or extraconal masses. Normal contour of globe without masses. CALVARIUM: No fracture. PARANASAL SINUSES: No fluid or mucosal thickening. SOFT TISSUES: No mass or hematoma. OTHER: No other significant finding. IMPRESSION: NORMAL BRAIN CT WITHOUT CONTRAST. EVIDENCE OF ACUTE STROKE: NO. COMMENT: Quality ID # [id number]: Final reports with documentation of one or more dose reduction techniques (e.g., Automated exposure control, adjustment of the mA and/or kV according to patient size, use of iterative reconstruction technique) TECHNICAL DOCUMENTATION: JOB ID: [id number] [employer]- All Rights Reserved Reading location - IP/workstation name: [email or web address]
--- NOTE | 2017-12-14 13:58 | RADIOLOGY REPORT (SQ) ---
EXAM DESCRIPTION: CT CERVICAL SPINE WITHOUT COMPLETED DATE/TIME: 12/14/2017 1:44 pm REASON FOR STUDY: s/p fall COMPARISON: CT chest 08/06/2017, 05/15/2016 PET-CT 11/02/2016, 06/01/2016 TECHNIQUE: Axial images acquired through the cervical spine without intravenous contrast. Images re viewed with lung, soft tissue and bone windows. Reconstructed coronal and sagittal MPR images review ed. Images stored on PACS. All CT scanners at this facility use dose modulation, iterative reconstruction, and/or weight based d osing when appropriate to reduce radiation dose to as low as reasonably achievable (ALARA). [facility]: Dose Right [facility]: CareDose [facility]: Dose Right [facility]: Teradose 4D [facility]: Dialective RADIATION DOSE: CT Rad equipment meets quality standard of care and radiation dose reduction techniq ues were employed. CTDIvol: 23.9 mGy. DLP: 451 mGy-cm. mGy. LIMITATIONS: None. FINDINGS: ALIGNMENT: Anatomic. MINERALIZATION: Normal. VERTEBRAL BODIES: No fractures or dislocation. DISCS: No significant disc disease. FACETS, LATERAL MASSES, POSTERIOR ELEMENTS: No fractures. No dislocation. No acute findings. HARDWARE: None in the spine. Right-sided central line. VISUALIZED RIBS: No fractures. LUNG APICES AND SOFT TISSUES: Stable benign dermoid in the sternal notch, 3 x 2 cm in size. OTHER: No other significant finding. IMPRESSION: NO ACUTE OR SIGNIFICANT FINDINGS IN THE CERVICAL SPINE. TECHNICAL DOCUMENTATION: JOB ID: [id number] Quality ID # [id number]: Final reports with documentation of one or more dose reduction techniques (e.g., Au tomated exposure control, adjustment of the mA and/or kV according to patient size, use of iterative reconstruction technique) 2010 [employer]- All Rights Reserved Reading location - IP/workstation name: [email or web address]
[2017-12-14 14:55] LABS: ABSOLUTE LYMPHOCYTES (AUTO) 1.1 10^3/uL (0.5-4.7); ABSOLUTE MONOCYTES (AUTO) 0.2 10^3/uL (0.1-1.4); ABSOLUTE NEUT (AUTO) 2.1 10^3/uL (1.7-8.2); BASOPHILS % (AUTO) 0.8 % (0-2); EOSINOPHILS % (AUTO) 1.2 % (0-6); HEMATOCRIT 45.3 % (37.9-51.0); LYMPHOCYTES % (AUTO) 32.3 % (13-45); MEAN CORPUSCULAR HEMOGLOBIN 29.6 pg (27.0-33.4); MEAN CORPUSCULAR HGB CONC 33.6 g/dL (32.0-36.0); MEAN CORPUSCULAR VOLUME 88 fl (80-97); MONOCYTES % (AUTO) 6.2 % (3-13); PLATELET COUNT 177 10^3/uL (150-450); RED BLOOD COUNT 5.15 10^6/uL (4.35-5.55); RED CELL DISTRIBUTION WIDTH 13.6 % (11.5-14.0); SEGMENTED NEUTROPHILS % (AUTO) 59.5 % (42-78); TOTAL CELLS COUNTED % (AUTO) 100 %; WHITE BLOOD COUNT 3.5 10^3/uL (4.0-10.5)
[2017-12-14 15:08] LABS: ANION GAP 15 (5-19); BLOOD UREA NITROGEN 13 mg/dL (7-20); CALCIUM 9.5 mg/dL (8.4-10.2); CARBON DIOXIDE 28 mmol/L (22-30); CHLORIDE 105 mmol/L (98-107); GLUCOSE 89 mg/dL (75-110); POTASSIUM 4.4 mmol/L (3.6-5.0); SODIUM 147.7 mmol/L (137-145)
[2017-12-14 15:13] LABS: HEMOGLOBIN 15.2 g/dL (13.5-17.0)
--- NOTE | 2017-12-14 18:05 | EKG REPORT ---
SEVERITY:- OTHERWISE NORMAL ECG - SINUS RHYTHM EARLY PRECORDIAL TRANSITION : Confirmed by: Olu Torres MD 14-Dec-2017 18:04:28
--- NOTE | 2017-12-14 20:15 | ER Document Report ---
ED General - General Chief Complaint: Fall Stated Complaint: FALL DIZZY Time Seen by Provider: 12/14/17 12:59 Notes: Patient is a 47-year-old male who presents after he apparently became lightheaded and fell in the lobby. The patient had been evaluated for psychiatric issue and had just been discharged. He apparently did not lose consciousness but states he fell backwards and struck his head on the right side. He states that since that time he has had a dull, throbbing, aching pain to the area. Nothing improves or worsens his pain. He denies any chest pain or shortness of breath either before or after the episode of lightheadedness and near syncope. He denies a history of similar episodes in the past. He does not take any form of anticoagulation. At the time of my evaluation he denies any ongoing symptoms and states he feels quite well. TRAVEL OUTSIDE OF THE [place] IN LAST 30 DAYS: No - Related Data Allergies/Adverse Reactions: ciprofloxacin [Ciprofloxacin] Allergy (Intermediate, Verified 12/14/17 13:02) rash Sulfa (Sulfonamide Antibiotics) Allergy (Intermediate, Verified 12/14/17 13:02) rash tetracycline [Tetracycline] Allergy (Intermediate, Verified 12/14/17 13:02) hives, rash silver [From Tegaderm AG Mesh] Adverse Reaction (Severe, Verified 12/14/17 13:02 ) rash codeine [Codeine] Adverse Reaction (Intermediate, Verified 12/14/17 13:02) upset stomach Past Medical History - General Information source: Patient - Social History Smoking Status: Never Smoker Chew tobacco use (# tins/day): No Frequency of alcohol use: None Drug Abuse: None Lives with: Family Family History: CAD, DM, Hypertension, Thyroid Disfunction, Other - Brother heart attack at age 45 Patient has suicidal ideation: No Patient has homicidal ideation: No - Past Medical History Cardiac Medical History: Reports: Hx Hypertension Denies: Hx Coronary Artery Disease, Hx Heart Attack Pulmonary Medical History: Reports: Hx Asthma, Hx Bronchitis, Hx Pneumonia Denies: Hx COPD, Hx Sleep Apnea, Hx Tuberculosis Neurological Medical History: Reports: Hx Migraine. Denies: Hx Cerebrovascular Accident, Hx Seizures Renal/ Medical History: Reports: Hx Benign Prostatic Hyperplasia, Hx Kidney Stones. Denies: Hx Peritoneal Dialysis Musculoskeltal Medical History: Denies Hx Arthritis Skin Medical History: Reports Hx Cellulitis, Reports Hx Psoriasis Psychiatric Medical History: Reports: Hx Anxiety, Hx Bipolar Disorder, Hx Depression Infectious Medical History: Reports: Hx HIV Past Surgical History: Reports: Hx Rectal Surgery, Other - Port-A-Cath, anal biopsy. Denies: Hx Pacemaker - Immunizations Immunizations up to date: Yes Hx Diphtheria, Pertussis, Tetanus Vaccination: Yes Hx Pneumococcal Vaccination: 04/26/15 Review of Systems - Review of Systems Notes: Constitutional: Negative for fever. Eyes: Negative for visual changes. ENT: Negative for facial injury Cardiovascular: Negative for chest injury. Positive for near syncope Respiratory: Negative for shortness of breath. Gastrointestinal: Negative for abdominal injury. Genitourinary: Negative for genital injury Musculoskeletal: Negative for back injury. Skin: Negative for laceration/abrasions. Neurological: Positive for head injury Physical Exam - Vital signs Vitals: Temp Pulse BP Pulse Ox 97.8 F 104 H 155/107 H 98 12/14/17 12:58 12/14/17 12:58 12/14/17 12:58 12/14/17 12:58 Interpretation: Hypertensive, Tachycardic Notes: PHYSICAL EXAMINATION: GENERAL: Well-appearing, no acute distress. HEAD: Atraumatic, normocephalic. EYES: Pupils equal round and reactive to light, extraocular movements intact, sclera anicteric, conjunctiva are normal. ENT: nares patent, no oral pharyngeal trauma. No hemotympanum, no [place]'s sign , no raccoon eyes. NECK: No midline cervical spine tenderness. Patient able to move their head to 45 bilaterally without any discomfort. LUNGS: Breath sounds clear to auscultation bilaterally and equal. No wheezes rales or rhonchi. HEART: Regular rate and rhythm without murmurs. CHEST WALL: No ecchymosis over the chest wall. ABDOMEN: Soft, nontender, normoactive bowel sounds. No guarding, no rebound. No seatbelt sign. EXTREMITIES: Normal range of motion, no pitting or edema. No long bone deformities. BACK: No midline spinal tenderness, step-offs, or deformities. NEUROLOGICAL: Face symmetric. Tongue protrudes midline. Extraocular motions intact. Pupils are 2 mm and equally reactive. Normal speech, normal gait. 5 out of 5 strength in both the distal and proximal upper and lower extremities bilaterally. Sensation is grossly intact throughout. Finger to nose testing normal. Pronator drift normal. PSYCH: Normal mood, normal affect. SKIN: Warm, Dry, normal turgor, no rashes or lesions noted. Course - Re-evaluation Re-evalutation: 12/14/17 20:14 Presentation of syncope of unclear etiology. Patient normotensive, alert, without focal neurologic deficits at time of arrival. Denies syncope was during exertion. No preceding symptoms of palpitations, chest pain, or shortness of breath. Patient asymptomatic at time of arrival. EKG is without evidence of HCOM , right heart strain, ST changes to suggest ischemia, prolong QTc, delta wave, epsilon wave, or Brugada syndrome. Patient denies any family history of sudden cardiac , personal history of of structural heart disease. Patient denies any symptoms to suggest an acute PE, MA, TAD, SAH, seizure, or acute GI bleed as the etiology of their syncope today. On exam, no murmurs to suggest critical aortic stenosis as possible etiology. In triage a CT of the head and cervical spine were ordered on this patient although notably he is negative by both [place] head and C-spine criteria. These have been reviewed and are noted to be normal. Based on overall clinical history, exam findings, vitals, and patients appearance, I feel it is safe for patient to be discharged home at this time with close outpatient follow-up and strict return precautions. Patient is in agreement with this plan, has verbalized indications for return to ED, and questions have been answered. - Vital Signs Vital signs: Temp Pulse Resp BP Pulse Ox 98.1 F 76 16 113/82 100 12/14/17 20:49 12/14/17 20:49 12/14/17 20:49 12/14/17 20:49 12/14/17 20:49 - Laboratory Result Diagrams: 12/14/17 14:35 12/14/17 14:35 Laboratory results interpreted by me: 12/14/17 12/14/17 14:35 14:35 WBC 3.5 L Sodium 147.7 H - Diagnostic Test Radiology reviewed: Image reviewed, Reports reviewed Radiology results interpreted by me: 12/14/17 20:15 CT head: No acute intercranial bleed or evidence of skull fracture Chest x-ray: No acute infiltrate or pneumothorax - EKG Interpretation by Me Additional EKG results interpreted by me: 12/14/17 20:15 Sinus rhythm. Rate 88. No ST elevations or depressions. QTC is 417. Discharge - Discharge Clinical Impression: Near syncope Head trauma Qualifiers: Encounter type: initial encounter Qualified Code(s): S09.90XA - Unspecified injury of head, initial encounter Condition: Good Disposition: HOME, SELF-CARE Additional Instructions: You were seen today after an episode of passing out. Your EKG here is normal. At this time, we do not feel that your episode of passing out was from any life- threatening cause. Please drink plenty of fluids over the next several days. Return to emergency department if you have any further episodes of syncope, headache, weakness, numbness, chest pain, or shortness of breath. Please follow up closely with your primary care physician. You have likely sustained a contusion (bruise) to your head. If you had a CT scan done, it did not show any evidence of serious injury or bleeding. Symptoms to expect from a concussion include nausea, mild to moderate headache, difficulty concentrating or sleeping, and mild lightheadedness. These symptoms should improve over the next few days to weeks. Return to the emergency department or follow-up with your primary care doctor if your symptoms are not improving over this time. Signs of a more serious head injury include vomiting , severe headache, excessive sleepiness or confusion, and weakness or numbness in your face, arms or legs. Return immediately to the Emergency Department if you experience any of these more concerning symptoms. Rest, avoid strenuous physical or mental activity, and avoid activities that could potentially result in another head injury until all your symptoms from this head injury are completely resolved for at least 2-3 weeks. If you participate in sports, get cleared by your doctor or workplace trainer and assessor before returning to play. You may take ibuprofen or acetaminophen over the counter according to label instructions for mild headache or scalp soreness. Forms: Return to Work Referrals: SUZIE THOMAS DO [Primary Care Provider] - Follow up as needed
[2017-12-14 22:08] VITALS: BP 113/82
== END 2017-12-14 20:49 | disposition home or self-care (01) ==
LOC: ER 12:52
DX: R55 Syncope and collapse (principal); S09.90XA Unspecified injury of head, initial encounter; R51 Headache; W18.39XA Other fall on same level, initial encounter; Y93.89 Activity, other specified; Y92.238 Other place in hospital as the place of occurrence of the external cause; I10 Essential (primary) hypertension; J45.909 Unspecified asthma, uncomplicated; Z21 Asymptomatic human immunodeficiency virus [HIV] infection status; Z88.1 Allergy status to other antibiotic agents; Z88.2 Allergy status to sulfonamides
CPT/HCPCS: 36415; 70450; 71046; 72125; 80048; 84484; 85025; 93005; 93010; 99285

== ENCOUNTER 2018-01-27 23:27 | Emergency (ER) | payer MEDICARE, MEDICAID ==
--- NOTE | 2018-01-27 23:38 | ER Document Report ---
ED General <SHRUTHI SONG - Last Filed: 01/28/18 13:30> <SUZIE PERKINS - Last Filed: 01/28/18 15:56> - General TRAVEL OUTSIDE OF THE [place] IN LAST 30 DAYS: No <IRINA SMITH - Last Filed: 01/29/18 02:05> - General Stated Complaint: CHEST TIGHTNESS Time Seen by Provider: 01/27/18 23:33 Notes: Patient is a 47-year-old male who presents with complaint of some chest tightness and pain. Patient has a history of the scarring in the past due to cocaine abuse. Has been admitted to the hospital in the past for this. Patient admits he took cocaine yesterday as well as did it today around noon and 2 PM. He says he has had some continuous chest tightness since last night. He received nitro in a months which relieved the tightness. This causes blood pressure dropped some. By time he arrived here his blood pressure is back to normal. He denies any syncope. No passing out. No headache. No other complaints at this time. Patient does have history of HIV as well as history of renal cancer. He does have family history of ND with a brother had an ND at age 45. The patient himself has never had an ND nor has had a history of coronary disease. 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 Grimaldo. No recent leg pain or leg swelling. No history of PE or DVT. (IRINA SMITH) - Related Data Allergies/Adverse Reactions: ciprofloxacin [Ciprofloxacin] Allergy (Intermediate, Verified 12/14/17 13:02) rash Sulfa (Sulfonamide Antibiotics) Allergy (Intermediate, Verified 12/14/17 13:02) rash tetracycline [Tetracycline] Allergy (Intermediate, Verified 12/14/17 13:02) hives, rash silver [From Tegaderm AG Mesh] Adverse Reaction (Severe, Verified 12/14/17 13:02 ) rash codeine [Codeine] Adverse Reaction (Intermediate, Verified 12/14/17 13:02) upset stomach Past Medical History - Social History Smoking Status: Current Some Day Smoker Frequency of alcohol use: None Drug Abuse: Cocaine Family History: CAD, DM, Hypertension, Thyroid Disfunction, Other - Brother heart attack at age 45 - Past Medical History Cardiac Medical History: Reports: Hx Hypertension Denies: Hx Coronary Artery Disease, Hx Heart Attack Pulmonary Medical History: Reports: Hx Asthma, Hx Bronchitis, Hx Pneumonia Denies: Hx COPD, Hx Sleep Apnea, Hx Tuberculosis Neurological Medical History: Reports: Hx Migraine. Denies: Hx Cerebrovascular Accident, Hx Seizures Renal/ Medical History: Reports: Hx Benign Prostatic Hyperplasia, Hx Kidney Stones. Denies: Hx Peritoneal Dialysis Musculoskeltal Medical History: Denies Hx Arthritis Skin Medical History: Reports Hx Cellulitis, Reports Hx Psoriasis Psychiatric Medical History: Reports: Hx Anxiety, Hx Bipolar Disorder, Hx Depression Infectious Medical History: Reports: Hx HIV Past Surgical History: Reports: Hx Rectal Surgery, Other - Port-A-Cath, anal biopsy. Denies: Hx Pacemaker - Immunizations Immunizations up to date: Yes Hx Diphtheria, Pertussis, Tetanus Vaccination: Yes Hx Pneumococcal Vaccination: 04/26/15 <IRINA SMITH - Last Filed: 01/29/18 02:05> Review of Systems <SHRUTHI SONG - Last Filed: 01/28/18 13:30> <SUZIE PERKINS - Last Filed: 01/28/18 15:56> <IRINA SMITH - Last Filed: 01/29/18 02:05> - Review of Systems Notes: My Normal Review Basic REVIEW OF SYSTEMS: CONSTITUTIONAL : Denies fever, chills, or sweats. Denies recent illness. EENT: Denies eye, ear, throat, or mouth pain or symptoms. Denies nasal or sinus congestion. CARDIOVASCULAR: Chest pain RESPIRATORY: Denies cough, cold, or chest congestion. Denies shortness of breath, difficulty breathing, or wheezing. GASTROINTESTINAL: Denies abdominal pain. Denies nausea, vomiting, or diarrhea. Denies constipation. Last BM: GENITOURINARY: Denies difficulty urinating, painful urination, burning, frequency, or blood in urine. MUSCULOSKELETAL: Denies neck or back pain or joint pain or swelling. SKIN: Denies rash or skin lesions. NEUROLOGICAL: Denies altered mental status or loss of consciousness. Denies headache. Denies weakness or paralysis or loss of use of either side. Denies problems with gait or speech. Denies sensory or motor loss. ALL OTHER SYSTEMS REVIEWED AND NEGATIVE. (IRINA SMITH) Physical Exam <SHRUTHI SONG - Last Filed: 01/28/18 13:30> <SUZIE PERKINS - Last Filed: 01/28/18 15:56> <IRINA SMITH - Last Filed: 01/29/18 02:05> - Vital signs Vitals: Temp Pulse Resp BP Pulse Ox 97.9 F 67 20 110/65 96 01/28/18 09:28 01/28/18 09:28 01/28/18 09:28 01/28/18 09:28 01/28/18 09:28 - Notes Notes: General Appearance: Well nourished, alert, cooperative, no acute distress, no obvious discomfort. Well-appearing. Vitals: reviewed, See vital signs table. Head: no swelling or tenderness to the head Eyes: PERRL, EOMI, Conjuctiva clear Mouth: No decreasd moisture Lungs: No wheezing, No rales, No rhonci, No accessory muscle use, good air exchange bilaterally. Heart: Normal rate, Regular rythm, No murmur, no rub Abdomen: Normal BS, soft, No rigidity, No abdominal tenderness, No guarding, no rebound, no abdominal masses, no organomegaly Extremities: strength 5/5 in all extremities, good pulses in all extremities, no swelling or tenderness in the extremities, no edema. Skin: warm, dry, appropriate color, no rash Neuro: speech clear, oriented x 3, normal affect, responds appropriately to questions. (IRINA SMITH) Course - Laboratory Result Diagrams: 01/27/18 23:41 01/27/18 23:41 <SHRUTHI SONG - Last Filed: 01/28/18 13:30> - Laboratory Result Diagrams: 01/27/18 23:41 01/27/18 23:41 <SUZIE PERKINS - Last Filed: 01/28/18 15:56> - Laboratory Result Diagrams: 01/27/18 23:41 01/27/18 23:41 <IRINA SMITH - Last Filed: 01/29/18 02:05> - Re-evaluation Re-evalutation: 01/28/18 02:55 Patient is chest pain-free and doing well. We will get repeat troponin. 01/28/18 05:00 She continues to remain chest pain-free. Repeat troponin is normal. Repeat EKG does not show any concerning findings. After informed patient that everything looked okay that we would discharge him home and follow-up with cardiology outpatient patient then has dictated and said that he has been having thoughts of depression I would like speak with psychiatry morning. He says he has had some thoughts of suicide but has not yet had a plan. We will hold the patient to morning time to speak with psychiatry as he requested. Patient is medically stable for psychiatric evaluation. 01/28/18 05:03 (IRINA SMITH) - Vital Signs Vital signs: Temp Pulse Resp BP Pulse Ox 98.0 F 58 L 18 119/75 98 01/28/18 16:14 01/28/18 16:14 01/28/18 16:14 01/28/18 16:14 01/28/18 16:14 - Laboratory Laboratory results interpreted by me: 01/27/18 01/27/18 01/28/18 23:41 23:41 03:05 WBC 3.9 L RDW 14.6 H Sodium 147.4 H Chloride 108 H Glucose 125 H AST 67 H Total Protein 8.4 H Urine Protein Urine Urobilinogen Salicylates 1.3 L Acetaminophen < 10 L 01/28/18 07:20 WBC RDW Sodium Chloride Glucose AST Total Protein Urine Protein 100 H Urine Urobilinogen 2.0 H Salicylates Acetaminophen - EKG Interpretation by Me Additional EKG results interpreted by me: 01/27/18 23:38 EKG is reviewed and interpreted by me. EKG shows sinus tachycardia with rate of [address] segment elevation or depression. No ischemic T-wave inversions. HI interval, QRS duration are within normal range. QT interval slightly prolonged. Old EKG for comparison is from December 14, 2017. 01/27/18 23:39 01/28/18 03:18 EKG #2 is reviewed and interpreted by me. EKG shows sinus rhythm with rate of [address] segment changes comparison to his previous EKG. HI interval, QRS duration, QTc intervals are within normal range. (IRINA SMITH) Discharge <SHRUTHI SONG - Last Filed: 01/28/18 13:30> <SUZIE PERKINS - Last Filed: 01/28/18 15:56> <IRINA SMITH - Last Filed: 01/29/18 02:05> - Discharge Clinical Impression: Cocaine abuse Chest pain Qualifiers: Chest pain type: unspecified Qualified Code(s): R07.9 - Chest pain, unspecified Depression Qualifiers: Depression Type: unspecified Qualified Code(s): F32.9 - Major depressive disorder, single episode, unspecified Condition: Good Disposition: HOME, SELF-CARE Additional Instructions: You were seen in the emergency department and consulted by the Behavioral Health Team for depression and suicidal ideation, and determined appropriate for discharge. You requested information on detox services and indicated interested in [facility] for cocaine abuse and addiction. You currently do not have an outpatient provider but were provided Medicaid/ Medicare resources and referral outpatient substance abuse and mental health resources for the [place], [place] area. [facility] has accepted you into their program for detox. Your Emergency Department Provider has requested you to please stop using cocaine as continued use of cocaine will eventually lead to a heart attack and potentially . Please follow up with the flocculator operator, Dr. Centeno, for reevaluation and possible outpatient stress test. DEPRESSION: Your evaluation reveals that you have depression. Symptoms may be vague, they often include disturbance of sleep, fatigue, loss of appetite, and general loss of interest in life. Depression may be a side effect of drugs, or a reaction to a major change in your life, many cases have no known cause. If depression is acute, and related to a major loss in your life, you can expect it to clear completely with time. If you have been depressed a long time , are prone to repeated bouts of depression or low mood, or have been thinking of suicide, get help. Depression can be treated with anti-depressant medication and counseling. Long-term depression will often take a few weeks to clear, even with appropriate medication. Follow-up care is important. SUICIDAL IDEATION: Suicidal ideation is a common medical term for thoughts about suicide, which may be as detailed as a formulated plan, without the suicidal act itself. Although most people who undergo suicidal ideation do not commit suicide, some go on to make suicide attempts. The range of suicidal ideation varies greatly from fleeting to detailed planning, role playing, and unsuccessful attempts. While thoughts about suicide are common, most people do not carry out serious actions to commit suicide. Based upon your evaluation and discussion with you, we do not believe you are currently at risk to act upon your thoughts of suicide. You have agreed to return to the Emergency Department, at any time , if you feel inclined to act upon your suicidal thoughts. FOLLOW-UP CARE: If you have been referred to a physician for follow-up care, call the physician s office for an appointment as you were instructed or within the next two days. If you experience worsening or a significant change in your symptoms, notify the physician immediately or return to the Emergency Department at any time for re-evaluation. Referrals: SUZIE THOMAS DO [Primary Care Provider] - Follow up in 3-5 days KATINA KEVIN MD [ACTIVE STAFF] - 01/29/18 (call to make a close follow up appointment)
[2018-01-27 23:55] LABS: ABSOLUTE LYMPHOCYTES (AUTO) 1.3 10^3/uL (0.5-4.7); ABSOLUTE MONOCYTES (AUTO) 0.3 10^3/uL (0.1-1.4); ABSOLUTE NEUT (AUTO) 2.3 10^3/uL (1.7-8.2); BASOPHILS % (AUTO) 0.7 % (0-2); EOSINOPHILS % (AUTO) 0.2 % (0-6); HEMATOCRIT 42.2 % (37.9-51.0); HEMOGLOBIN 14.3 g/dL (13.5-17.0); LYMPHOCYTES % (AUTO) 34.1 % (13-45); MEAN CORPUSCULAR HEMOGLOBIN 29.4 pg (27.0-33.4); MEAN CORPUSCULAR HGB CONC 33.9 g/dL (32.0-36.0); MEAN CORPUSCULAR VOLUME 87 fl (80-97); MONOCYTES % (AUTO) 7.8 % (3-13); PLATELET COUNT 171 10^3/uL (150-450); RED BLOOD COUNT 4.87 10^6/uL (4.35-5.55); RED CELL DISTRIBUTION WIDTH 14.6 % (11.5-14.0); SEGMENTED NEUTROPHILS % (AUTO) 57.2 % (42-78); TOTAL CELLS COUNTED % (AUTO) 100 %; WHITE BLOOD COUNT 3.9 10^3/uL (4.0-10.5)
[2018-01-28 00:18] LABS: ALANINE AMINOTRANSFERASE 37 U/L (21-72); ALBUMIN 4.9 g/dL (3.5-5.0); ALKALINE PHOSPHATASE 75 U/L (38-126); ANION GAP 13 (5-19); ASPARTATE AMINO TRANSFERASE 67 U/L (17-59); BILIRUBIN,DIRECT 0.4 mg/dL (0.0-0.4); BILIRUBIN,TOTAL 0.7 mg/dL (0.2-1.3); BLOOD UREA NITROGEN 12 mg/dL (7-20); CALCIUM 9.8 mg/dL (8.4-10.2); CARBON DIOXIDE 26 mmol/L (22-30); CHLORIDE 108 mmol/L (98-107); GLUCOSE 125 mg/dL (75-110); POTASSIUM 3.9 mmol/L (3.6-5.0); SODIUM 147.4 mmol/L (137-145); TOTAL PROTEIN 8.4 g/dL (6.3-8.2)
--- NOTE | 2018-01-28 00:36 | RADIOLOGY REPORT (SQ) ---
EXAM DESCRIPTION: XR CHEST 1 VIEW COMPLETED DATE/TME: 01/27/2018 23:33 CLINICAL HISTORY: 47 years Male, chest pain COMPARISON: None. NUMBER OF VIEWS/TECHNIQUE: 1/AP FINDINGS: Adequate lung volume, clear parenchyma, normal cardiac silhouette, and jugular central line tip at the mid right atrium; consider 7 cm retraction. And intact bony thorax. IMPRESSION: No acute cardiopulmonary findings.
[2018-01-28 05:58] LABS: SALICYLATE 1.3 mg/dL (2.0-20.0)
[2018-01-28 06:00] LABS: ACETAMINOPHEN < 10 ug/mL (10-30)
--- NOTE | 2018-01-28 07:31 | EKG REPORT ---
SEVERITY:- OTHERWISE NORMAL ECG - SINUS TACHYCARDIA EARLY TRANSITION, NO CHANGE FROM PREV. ELG BORDERLINE PROLONGED QT INTERVAL : Confirmed by: Olu Torres MD 28-Jan-2018 07:31:00
--- NOTE | 2018-01-28 07:31 | EKG REPORT ---
SEVERITY:- OTHERWISE NORMAL ECG - SINUS RHYTHM EARLY TRANSITION : Confirmed by: Olu Torres MD 28-Jan-2018 07:31:09
[2018-01-28 08:39] LABS: URINE AMPHETAMINES SCREEN NEGATIVE; URINE BARBITURATES SCREEN NEGATIVE; URINE BENZODIAZEPINES SCREEN NEGATIVE; URINE COCAINE SCREEN UNCONFIRMED POSITIVE; URINE MARIJUANA (THC) SCREEN UNCONFIRMED POSITIVE; URINE METHADONE SCREEN NEGATIVE; URINE PHENCYCLIDINE SCREEN NEGATIVE
[2018-01-28 08:54] LABS: APPEARANCE,URINE SLIGHTLY-CLOUDY; BILIRUBIN,URINE NEGATIVE (NEGATIVE); GLUCOSE, URINE NEGATIVE (NEGATIVE); KETONES,URINE NEGATIVE (NEGATIVE); LEUKOCYTE ESTERASE,URINE NEGATIVE (NEGATIVE); NITRITE,URINE NEGATIVE (NEGATIVE); PROTEIN,URINE 100 mg/dL (NEGATIVE); URINE SPECIFIC GRAVITY 1.033
[2018-01-28 08:55] LABS: COLOR,URINE YELLOW
--- NOTE | 2018-01-28 10:00 | ER Document Report ---
Doctor's Note Notes: 01/28/18 09:59 Rounds: Chart reviewed and patient interviewed. Patient being evaluated for cocaine abuse and chest pain. Says he is no longer having chest pains this morning. His workup including 2 EKGs and 2 troponins during his stay here have all been normal/negative. Other history of significance is patient is HIV positive. 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 Dr. Grimaldo is his attending oncologist. Vital signs are all normal. Patient appears to be medically stable for transfer or discharge. Sanya Nichols MD
[2018-01-28 16:22] VITALS: BP 119/75
== END 2018-01-28 16:22 | disposition home or self-care (01) ==
LOC: ER 23:27
DX: R07.89 Other chest pain (principal); F14.10 Cocaine abuse, uncomplicated; F32.9 Major depressive disorder, single episode, unspecified; R45.851 Suicidal ideations; I10 Essential (primary) hypertension; F17.200 Nicotine dependence, unspecified, uncomplicated; Z21 Asymptomatic human immunodeficiency virus [HIV] infection status; Z82.49 Family history of ischemic heart disease and other diseases of the circulatory system; Z85.9 Personal history of malignant neoplasm, unspecified; Z88.1 Allergy status to other antibiotic agents; Z88.2 Allergy status to sulfonamides
CPT/HCPCS: 36415; 71045; 80053; 80307; 81001; 84484; 85025; 93005; 93010; 99285

== ENCOUNTER 2018-07-29 20:22 | Observation (INO) | payer MEDICARE, MEDICAID ==
[2018-07-29 20:53] LABS: ABSOLUTE LYMPHOCYTES (AUTO) 1.3 10^3/uL (0.5-4.7); ABSOLUTE MONOCYTES (AUTO) 0.3 10^3/uL (0.1-1.4); ABSOLUTE NEUT (AUTO) 2.2 10^3/uL (1.7-8.2); BASOPHILS % (AUTO) 0.8 % (0-2); HEMOGLOBIN 13.6 g/dL (13.5-17.0); LYMPHOCYTES % (AUTO) 33.7 % (13-45); MEAN CORPUSCULAR HEMOGLOBIN 29.9 pg (27.0-33.4); MEAN CORPUSCULAR VOLUME 86 fl (80-97); MONOCYTES % (AUTO) 7.8 % (3-13); PLATELET COUNT 196 10^3/uL (150-450); RED BLOOD COUNT 4.56 10^6/uL (4.35-5.55); RED CELL DISTRIBUTION WIDTH 14.7 % (11.5-14.0); SEGMENTED NEUTROPHILS % (AUTO) 57.7 % (42-78); TOTAL CELLS COUNTED % (AUTO) 100 %; WHITE BLOOD COUNT 3.7 10^3/uL (4.0-10.5)
[2018-07-29 21:08] LABS: ALANINE AMINOTRANSFERASE 37 U/L (21-72); ALBUMIN 4.8 g/dL (3.5-5.0); ALKALINE PHOSPHATASE 64 U/L (38-126); ANION GAP 13 (5-19); ASPARTATE AMINO TRANSFERASE 26 U/L (17-59); BILIRUBIN,DIRECT 0.2 mg/dL (0.0-0.4); BILIRUBIN,TOTAL 0.7 mg/dL (0.2-1.3); BLOOD UREA NITROGEN 14 mg/dL (7-20); CALCIUM 9.8 mg/dL (8.4-10.2); CARBON DIOXIDE 27 mmol/L (22-30); CHLORIDE 104 mmol/L (98-107); GLUCOSE 110 mg/dL (75-110); POTASSIUM 3.5 mmol/L (3.6-5.0); SODIUM 144.4 mmol/L (137-145); TOTAL PROTEIN 8.5 g/dL (6.3-8.2)
[2018-07-29] MEDS ORDERED: ASPIRIN 81 MG TABLET, CHEWABLE PO ONE (21:10)
--- NOTE | 2018-07-29 21:17 | ER Document Report ---
ED Cardiac - General Stated Complaint: RESPIRATORY DISTRESS Time Seen by Provider: 07/29/18 20:39 TRAVEL OUTSIDE OF THE [place] IN LAST 30 DAYS: No - HPI Patient complains to provider of: Chest pain Use of: Cocaine Was the onset of pain: Sudden Is the pain a: New problem Chest pain location: Other - Right-sided Quality of pain: Achy Chest pain radiation location: Right arm Severity now: None Severity at worst: Moderate Pain level currently: Denies Positive cardiac history: No Exacerbated by: Denies Relieved by: Nothing Notes: Patient is a 48-year-old male that presents to the emergency department for chief complaint of chest pain. Patient reports right-sided chest pain that started today. He states it is achy, sharp and intermittent. The pain lasts for a few moments and then resolve. He has radiation of the pain into his right shoulder. He reports associated nausea, diaphoresis and shortness of breath. Patient states that he has a history of cocaine abuse and had been trying to go to , he relapsed yesterday. He denies history of cardiac disease and has never had a cardiac stress test before. Past Medical History: Anal cancer, hypertension, HIV, right eye blindness, Mnire's Past Surgical History: Anal surgeries Social History: Again abuse. Denies tobacco and alcohol Family History: Reviewed and noncontributory for presenting illness Allergies: Reviewed, see documented allergy list. REVIEW OF SYSTEMS: CONSTITUTIONAL : No fever No chills No diaphoresis No recent illness EENT: No vision changes No congestion No sore throat CARDIOVASCULAR: chest pain No palpitations RESPIRATORY: shortness of breath No cough No difficulty breathing GASTROINTESTINAL: No abdominal pain nausea No vomiting No diarrhea GENITOURINARY: No dysuria No hematuria No difficulty urinating MUSCULOSKELETAL: No back pain No leg pain No arm pain SKIN: No rashes No lesions LYMPHATIC: No swollen, enlarged glands. NEUROLOGICAL: No lightheadedness No headache No weakness No paresthesias PSYCHIATRIC: No anxiety No depression PHYSICAL EXAMINATION: Vital signs reviewed, nursing noted reviewed. GENERAL: Well-appearing, well-nourished and in no acute distress. HEAD: Atraumatic, normocephalic. EYES: Eyes appear normal, extraocular movements intact, sclera anicteric, conjunctiva are normal. ENT: nares patent, oropharynx clear without exudates. Moist mucous membranes. NECK: Normal range of motion, supple without lymphadenopathy LUNGS: Breath sounds clear to auscultation bilaterally and equal. No wheezes rales or rhonchi. HEART: Regular rate and rhythm without murmurs ABDOMEN: Soft, nontender, normoactive bowel sounds. No rebound, guarding, or rigidity. No masses appreciated. EXTREMITIES: Nontender, good range of motion, no pitting or edema. NEUROLOGICAL: No focal neurological deficits. Moves all extremities spontaneously Motor and sensory grossly intact on exam. PSYCH: Normal mood, normal affect. SKIN: Warm, Dry, normal turgor, no rashes or lesions noted on exposed skin - Related Data Allergies/Adverse Reactions: ciprofloxacin [Ciprofloxacin] Allergy (Intermediate, Verified 12/14/17 13:02) rash Sulfa (Sulfonamide Antibiotics) Allergy (Intermediate, Verified 12/14/17 13:02) rash tetracycline [Tetracycline] Allergy (Intermediate, Verified 12/14/17 13:02) hives, rash silver [From Tegaderm AG Mesh] Adverse Reaction (Severe, Verified 12/14/17 13:02) rash codeine [Codeine] Adverse Reaction (Intermediate, Verified 12/14/17 13:02) upset stomach Past Medical History - Social History Smoking Status: Never Smoker Family History: CAD, DM, Hypertension, Thyroid Disfunction, Other - Brother heart attack at age 45 - Past Medical History Cardiac Medical History: Reports: Hx Hypertension Denies: Hx Coronary Artery Disease, Hx Heart Attack Pulmonary Medical History: Reports: Hx Asthma, Hx Bronchitis, Hx Pneumonia Denies: Hx COPD, Hx Sleep Apnea, Hx Tuberculosis Neurological Medical History: Reports: Hx Migraine. Denies: Hx Cerebrovascular Accident, Hx Seizures Renal/ Medical History: Reports: Hx Benign Prostatic Hyperplasia, Hx Kidney Stones. Denies: Hx Peritoneal Dialysis Musculoskeletal Medical History: Denies Hx Arthritis Skin Medical History: Reports Hx Cellulitis, Reports Hx Psoriasis Psychiatric Medical History: Reports: Hx Anxiety, Hx Bipolar Disorder, Hx Depression Infectious Medical History: Reports: Hx HIV Past Surgical History: Reports: Hx Rectal Surgery, Other - Port-A-Cath, anal biopsy. Denies: Hx Pacemaker - Immunizations Immunizations up to date: Yes Hx Diphtheria, Pertussis, Tetanus Vaccination: Yes Hx Pneumococcal Vaccination: 04/26/15 Course - Re-evaluation Re-evalutation: 07/29/18 21:16 Vitals reviewed. Nursing notes reviewed. Patient given aspirin for his chest pain. His EKG shows no acute ischemic changes. He was placed on telemetry monitoring. 07/29/18 22:01 Patient's lab work is unremarkable. His troponin is negative. Chest x-ray shows no acute process. Because of his cocaine use he is at high risk for [place]. He will be admitted to the hospital for further cardiac evaluation and telemetry monitoring. Laboratory 07/29/18 07/29/18 07/29/18 20:39 20:39 20:39 WBC 3.7 L RBC 4.56 Hgb 13.6 Hct 39.0 MCV 86 MCH 29.9 MCHC 35.0 RDW 14.7 H Plt Count 196 Seg Neutrophils % 57.7 Lymphocytes % 33.7 Monocytes % 7.8 Eosinophils % 0.0 Basophils % 0.8 Absolute Neutrophils 2.2 Absolute Lymphocytes 1.3 Absolute Monocytes 0.3 Absolute Eosinophils 0.0 Absolute Basophils 0.0 Sodium 144.4 Potassium 3.5 L Chloride 104 Carbon Dioxide 27 Anion Gap 13 BUN 14 Creatinine 1.29 H Est GFR ( Amer) > 60 Est GFR (Non-Af Amer) > 60 Glucose 110 Calcium 9.8 Total Bilirubin 0.7 Direct Bilirubin 0.2 Neonat Total Bilirubin Not Reportable Neonat Direct Bilirubin Not Reportable Neonat Indirect Bili Not Reportable AST 26 ALT 37 Alkaline Phosphatase 64 Troponin I < 0.012 Total Protein 8.5 H Albumin 4.8 Chest X-Ray 07/29/18 20:39 IMPRESSION: No acute cardiopulmonary abnormality. 07/29/18 23:03 Patient's care discussed with Dr. Coello who accepts admission. Patient is stable at time of admission. - Laboratory Result Diagrams: 07/29/18 20:39 07/29/18 20:39 Laboratory results interpreted by me: 07/29/18 07/29/18 20:39 20:39 WBC 3.7 L RDW 14.7 H Potassium 3.5 L Creatinine 1.29 H Total Protein 8.5 H - EKG Interpretation by Me Additional EKG results interpreted by me: 07/29/18 21:16 Interpreted by myself 2030: Normal sinus rhythm, rate 82, normal axis, no ectopy, no ST elevation Discharge - Discharge Clinical Impression: Cocaine abuse, Chest pain in adult Condition: Stable Disposition: ADMITTED OBSERVATION Admitting Provider: Hospitalist Unit Admitted: Telemetry Referrals: SUZIE THOMAS DO [Primary Care Provider] - Follow up as needed
--- NOTE | 2018-07-29 21:44 | RADIOLOGY REPORT (SQ) ---
XR CHEST 1 VIEW HISTORY: Chest pain. COMPARISON: 01/28/2018 FINDINGS: The cardiomediastinal silhouette is unremarkable. The lungs are clear. No pleural effusion or pneumothorax is identified. IMPRESSION: No acute cardiopulmonary abnormality.
[2018-07-29 22:18] LABS: URINE AMPHETAMINES SCREEN NEGATIVE; URINE BARBITURATES SCREEN NEGATIVE; URINE BENZODIAZEPINES SCREEN NEGATIVE; URINE COCAINE SCREEN UNCONFIRMED POSITIVE; URINE MARIJUANA (THC) SCREEN NEGATIVE; URINE METHADONE SCREEN NEGATIVE; URINE PHENCYCLIDINE SCREEN NEGATIVE
[2018-07-30] MEDS ORDERED: ACETAMINOPHEN 325 MG TABLET PO PRN (00:03)
[2018-07-30] MEDS ORDERED: NITROGLYCERIN 0.4 MG/TAB 25 TAB/BOTTLE SL PRN (00:06)
[2018-07-30] MEDS ORDERED: HYDROXYZINE PAMOATE 25 MG CAPSULE PO PRN (00:30)
[2018-07-30 03:28] LABS: CREATINE KINASE MB 1.15 ng/mL (<4.55)
[2018-07-30 03:29] LABS: TROPONIN I < 0.012 ng/mL
--- NOTE | 2018-07-30 05:56 | PDOC H&P ---
History of Present Illness Admission Date/PCP: 07/29/18 23:28 SUZIE THOMAS DO Patient complains of: Chest pain and shortness of breath History of Present Illness: BLANCA BRAR is a 48 year old male with an extensive past medical history including hypertension, glaucoma with right eye blindness, anal cancer, HIV, cocaine and tobacco abuse. His last viral load 3 months ago was undetectable. Patient presents with 24 hours of chest pain and shortness of breath which occurred after smoking crack cocaine. His pain has remained persistent 3 out of 5 intensity heavy sensation with palpitations, shortness of breath and radiation to the left shoulder. In the emergency room his workup was notable mild hypokalemia. He is referred to the hospitalist for observation. Past Medical History Cardiac Medical History: Reports: Hypertension Denies: Coronary Artery Disease, Myocardial Infarction Pulmonary Medical History: Reports: Asthma, Bronchitis, Pneumonia Denies: Chronic Obstructive Pulmonary Disease (COPD), Sleep Apnea, Tuberculosis Neurological Medical History: Reports: Migraine Denies: Seizures Musculoskeltal Medical History: Denies: Arthritis Skin Medical History: Reports: Psoriasis Psychiatric Medical History: Reports: Bipolar Disorder, Substance Abuse Denies: Depression Hematology: Denies: Anemia Infectious Medical History: Reports: HIV Past Surgical History Past Surgical History: Reports: Other - Port-A-Cath, anal biopsy Denies: Pacemaker Social History Information Source: Patient, Emergency Med Personnel, [facility] Records Lives with: Alone Smoking Status: Never Smoker Frequency of Alcohol Use: None Hx Recreational Drug Use: Yes Drugs: Cocaine, Marijuana Hx Prescription Drug Abuse: No - Advance Directive Resuscitation Status: Full Code Family History Family History: CAD, DM, Hypertension, Thyroid Disfunction, Other - Brother heart attack at age 45 Parental Family History Reviewed: Yes Children Family History Reviewed: Yes Sibling(s) Family History Reviewed.: Yes Medication/Allergy Home Medications: Citalopram Hydrobromide [Celexa 40 mg Tablet] 20 mg PO QHS 02/03/15 Emtricitabine/Tenofovir [Truvada Tablet] 1 tab PO DAILY 02/03/15 Gabapentin 400 mg PO BID 02/03/15 Hydrochlorothiazide 50 mg PO DAILY 02/03/15 Docusate Sodium [Colace 100 mg Capsule] 1 cap PO BID 06/11/16 Raltegravir Potassium [Isentress 400 mg Tablet] 1 tab PO BID 06/11/16 Diazepam 1 tab PO Q8H PRN 06/29/16 Fentanyl 1 patch TOP PRN PRN 06/29/16 Hydroxyzine HCl 1 tab PO Q8H PRN 06/29/16 Ondansetron [Zofran Odt] 8 mg PO Q8H PRN 06/29/16 Oxycodone HCl 1 tab PO Q6H PRN 06/29/16 Promethazine HCl 25 mg PO Q6H PRN 06/29/16 Acetaminophen [Tylenol 325 mg Tablet] 650 mg PO Q4HP PRN tablet 06/30/16 Aspirin [Ecotrin 81 mg EC Tablet] 81 mg PO DAILY tabec 06/30/16 Oxycodone HCl/Acetaminophen [Percocet 5-325 mg Tablet] 1 tab PO ASDIR PRN #15 tablet 09/19/17 Allergies/Adverse Reactions: ciprofloxacin [Ciprofloxacin] Allergy (Intermediate, Verified 12/14/17 13:02) rash Sulfa (Sulfonamide Antibiotics) Allergy (Intermediate, Verified 12/14/17 13:02) rash tetracycline [Tetracycline] Allergy (Intermediate, Verified 12/14/17 13:02) hives, rash silver [From Tegaderm AG Mesh] Adverse Reaction (Severe, Verified 12/14/17 13:02) rash codeine [Codeine] Adverse Reaction (Intermediate, Verified 12/14/17 13:02) upset stomach Review of Systems Constitutional: ABSENT: chills, fever(s), headache(s), weight gain, weight loss Eyes: ABSENT: visual disturbances Ears: ABSENT: hearing changes Cardiovascular: ABSENT: chest pain, dyspnea on exertion, edema, orthropnea, palpitations Respiratory: ABSENT: cough, hemoptysis Gastrointestinal: ABSENT: abdominal pain, constipation, diarrhea, hematemesis, hematochezia, nausea, vomiting Genitourinary: ABSENT: dysuria, hematuria Musculoskeletal: ABSENT: joint swelling Integumentary: ABSENT: rash, wounds Neurological: ABSENT: abnormal gait, abnormal speech, confusion, dizziness, focal weakness, syncope Psychiatric: ABSENT: anxiety, depression, homidical ideation, suicidal ideation Endocrine: ABSENT: cold intolerance, heat intolerance, polydipsia, polyuria Hematologic/Lymphatic: ABSENT: easy bleeding, easy bruising Physical Exam Vital Signs: Temp Pulse Resp BP Pulse Ox 98.3 F 88 16 98/60 L 94 07/30/18 03:32 07/30/18 03:32 07/30/18 03:32 07/30/18 03:32 07/30/18 03:32 Intake & Output 07/28/18 07/29/18 07/30/18 11:59 11:59 11:59 Weight 92.1 kg General appearance: PRESENT: no acute distress, well-developed, well-nourished Head exam: PRESENT: atraumatic, normocephalic Eye exam: PRESENT: conjunctiva pink, EOMI, PERRLA. ABSENT: scleral icterus Ear exam: PRESENT: normal external ear exam Mouth exam: PRESENT: moist, tongue midline Neck exam: ABSENT: carotid bruit, JVD, lymphadenopathy, thyromegaly Respiratory exam: PRESENT: clear to auscultation caren. ABSENT: rales, rhonchi, wheezes Cardiovascular exam: PRESENT: RRR. ABSENT: diastolic murmur, rubs, systolic murmur Pulses: PRESENT: normal dorsalis pedis pul Vascular exam: PRESENT: normal capillary refill GI/Abdominal exam: PRESENT: normal bowel sounds, soft. ABSENT: distended, guarding, mass, organolmegaly, rebound, tenderness Rectal exam: PRESENT: deferred Extremities exam: PRESENT: full ROM. ABSENT: calf tenderness, clubbing, pedal edema Neurological exam: PRESENT: alert, awake, oriented to person, oriented to place, oriented to time, oriented to situation, CN II-XII grossly intact. ABSENT: motor sensory deficit Psychiatric exam: PRESENT: appropriate affect, normal mood. ABSENT: homicidal ideation, suicidal ideation Skin exam: PRESENT: dry, intact, warm. ABSENT: cyanosis, rash Results Laboratory Results: 07/29/18 20:39 07/29/18 20:39 07/29/18 07/29/18 20:39 20:39 WBC 3.7 L RBC 4.56 Hgb 13.6 Hct 39.0 MCV 86 MCH 29.9 MCHC 35.0 RDW 14.7 H Plt Count 196 Seg Neutrophils % 57.7 Lymphocytes % 33.7 Monocytes % 7.8 Eosinophils % 0.0 Basophils % 0.8 Absolute Neutrophils 2.2 Absolute Lymphocytes 1.3 Absolute Monocytes 0.3 Absolute Eosinophils 0.0 Absolute Basophils 0.0 Sodium 144.4 Potassium 3.5 L Chloride 104 Carbon Dioxide 27 Anion Gap 13 BUN 14 Creatinine 1.29 H Est GFR ( Amer) > 60 Est GFR (Non-Af Amer) > 60 Glucose 110 Calcium 9.8 Total Bilirubin 0.7 AST 26 ALT 37 Alkaline Phosphatase 64 Total Protein 8.5 H Albumin 4.8 07/29/18 07/30/18 07/30/18 20:39 02:29 02:29 Creatine Kinase 220 H CK-MB (CK-2) 1.15 Troponin I < 0.012 < 0.012 Impressions: Chest X-Ray 07/29/18 20:39 IMPRESSION: No acute cardiopulmonary abnormality. Assessment & Plan - Diagnosis (1) Chest pain in adult Is this a current diagnosis for this admission?: Yes Plan: Cocaine-induced chest pain, aspirin, benzodiazepine, supportive care, follow-up cardiac enzymes, education (2) Cocaine use Is this a current diagnosis for this admission?: Yes Plan: Currently participating in Narcotics Anonymous, education, benzodiazepine as needed (3) HIV (human immunodeficiency virus infection) Is this a current diagnosis for this admission?: Yes Plan: Continue outpatient regiment of heart therapy and outpatient follow-up with infectious disease clinic. - Time Time Spent: 50 to 70 Minutes - Inpatient Certification Medical Necessity: Need Close Monitoring Due to Risk of Patient Decompensation
[2018-07-30] MEDS: DIAZEPAM 5 MG TABLET PO SCH ×2 (06:29→14:12)
--- NOTE | 2018-07-30 08:20 | EKG REPORT ---
SEVERITY:- NORMAL ECG - SINUS RHYTHM : Confirmed by: Romy Gallardo MD 30-Jul-2018 08:19:21
[2018-07-30 08:52] LABS: HEMATOCRIT 38.9 % (37.9-51.0); HEMOGLOBIN 13.5 g/dL (13.5-17.0); MEAN CORPUSCULAR HEMOGLOBIN 29.9 pg (27.0-33.4); MEAN CORPUSCULAR HGB CONC 34.7 g/dL (32.0-36.0); MEAN CORPUSCULAR VOLUME 86 fl (80-97); PLATELET COUNT 174 10^3/uL (150-450); RED BLOOD COUNT 4.52 10^6/uL (4.35-5.55); RED CELL DISTRIBUTION WIDTH 15.1 % (11.5-14.0)
[2018-07-30 09:15] LABS: ANION GAP 8 (5-19); BLOOD UREA NITROGEN 18 mg/dL (7-20); CALCIUM 8.7 mg/dL (8.4-10.2); CARBON DIOXIDE 28 mmol/L (22-30); CHLORIDE 106 mmol/L (98-107); GLUCOSE 108 mg/dL (75-110); POTASSIUM 3.4 mmol/L (3.6-5.0); SODIUM 142.3 mmol/L (137-145)
[2018-07-30 09:28] LABS: CREATINE KINASE MB 1.08 ng/mL (<4.55); TROPONIN I < 0.012 ng/mL
[2018-07-30] MEDS ORDERED: FLUTICASONE NASAL SPRAY 50 MCG/SPRY 120 SPRAY/16 GM NASL PRN (09:37)
[2018-07-30] MEDS ORDERED: PROPRANOLOL HCL 10 MG TABLET PO SCH (10:00)
[2018-07-30] MEDS ORDERED: RALTEGRAVIR POTASSIUM 400 MG TABLET PO SCH (10:00)
[2018-07-30] MEDS ORDERED: GABAPENTIN 300 MG CAPSULE PO SCH (10:00)
[2018-07-30] MEDS ORDERED: EMTRICITABINE/TENOFOVIR 200-300 MG TABLET PO SCH (10:00)
[2018-07-30] MEDS ORDERED: ASPIRIN 81 MG TABLET, ENT COATED PO SCH (10:00)
[2018-07-30] MEDS ORDERED: DOCUSATE SODIUM 100 MG CAPSULE PO SCH (10:00)
[2018-07-30] MEDS ORDERED: TRUVADA PO SCH (10:00)
[2018-07-30] MEDS ORDERED: LURASIDONE HCL 40 MG TABLET PO SCH ×2 (10:00→18:00)
[2018-07-30] MEDS ORDERED: HYDROCHLOROTHIAZIDE 25 MG TABLET PO SCH (10:00)
[2018-07-30 12:59] VITALS: BP 99/64
[2018-07-30] MEDS ORDERED: CITALOPRAM HYDROBROMIDE 20 MG TABLET PO SCH (22:00)
[2018-07-31] MEDS ORDERED: AMLODIPINE BESYLATE 10 MG TABLET PO SCH (10:00)
--- NOTE | 2018-07-31 16:53 | PDOC DISCHARGE SUMMARY ---
Addendum entered and electronically signed by CHARLIE KINSEY NP-C 07/31/18 16:57: Provider Note Provider Note: Correction: Date of discharge is 07/30/18 Original Note: General - Admit/Disc Date/PCP Admission Date/Primary Care Provider: 07/29/18 23:28 SUZIE THOMAS DO Discharge Date: 07/31/18 - Discharge Diagnosis (1) Chest pain in adult Is this a current diagnosis for this admission?: Yes Summary: Patient presented with cocaine induced chest pain. Troponins were negative x3. EKG revealed NSR without ST segment changes. Chest x-ray was benign. He was admitted to [facility] on continuous cardiac telemetry and monitored overnight. He remained in normal sinus rhythm, chest pain-free, with normal cardiac enzymes. Discussed with cardiology; no indications for inpatient echocardiogram or stress testing at this time. Recommended avoiding all beta-blockers and placing the patient on amlodipine. Patient may follow-up as an outpatient to discuss any further cardiac testing. At time of discharge, the patient is in stable condition, chest pain-free, maintaining oxygen saturations on room air. His propranolol was discontinued and the patient is provided a prescription for amlodipine. He is educated on the importance of smoking cessation and avoidance of illicit substances. He is instructed to follow-up with his primary care provider within 1 week, cardiology within 2-4 weeks as needed, and to return to the emergency department as needed for any concerning symptoms. (2) Cocaine use Is this a current diagnosis for this admission?: Yes Summary: The patient endorsed cocaine use immediately prior to his chest discomfort. He is educated on the importance of abstaining from illicit substances. (3) HIV (human immunodeficiency virus infection) Is this a current diagnosis for this admission?: Yes Summary: Recommend continuing outpatient regiment of HRT therapy and following up with the infectious disease clinic as scheduled. (4) Hypertension Is this a current diagnosis for this admission?: Yes Summary: The patient's propanolol is discontinued. He is to continue his home dose hydrochlorothiazide and is provided a prescription for amlodipine 10 mg once daily. - Additional Information Resuscitation Status: Full Code Discharge Diet: Cardiac Discharge Activity: Activity As Tolerated, Balance Activity w/Rest, Slowly Increase Activity Prescriptions: Amlodipine Besylate [Norvasc 10 mg Tablet] 10 mg PO DAILY #30 tablet Nitroglycerin [Nitrostat 0.4 mg (1/150 Gr) Tabs 25/Bottle] 1 tab SL Q5MP PRN #1 bottle PRN Reason: Home Medications: Acetaminophen [Tylenol 325 mg Tablet] 650 mg PO Q4HP PRN tablet 07/30/18 Amlodipine Besylate [Norvasc 10 mg Tablet] 10 mg PO DAILY #30 tablet 07/30/18 Aspirin [Ecotrin 81 mg EC Tablet] 81 mg PO DAILY tabec 07/30/18 Citalopram Hydrobromide [Celexa 20 mg Tablet] 20 mg PO QHS tablet 07/30/18 Diazepam [Valium 5 mg Tablet] 5 mg PO Q8 tablet 07/30/18 Docusate Sodium [Colace 100 mg Capsule] 100 mg PO BID capsule 07/30/18 Fluticasone Propionate [Flonase Nasal [place] 50 Mcg/[place] 16 gm] 1 spray NASL DAILYP PRN 07/30/18 Gabapentin [Neurontin 300 mg Capsule] 400 mg PO BID capsule 07/30/18 Gabapentin [Neurontin] 400 mg PO Q8 07/30/18 Hydrochlorothiazide [Hydrodiuril 25 mg Tablet] 25 mg PO DAILY 07/30/18 Hydroxyzine Pamoate [Vistaril 25 mg Capsule] 25 mg PO Q8HP PRN capsule 07/30/18 Lurasidone HCl [Latuda 40 mg Tablet] 40 mg PO DAILY 07/30/18 Nitroglycerin [Nitrostat 0.4 mg (1/150 Gr) Tabs 25/Bottle] 1 tab SL Q5MP PRN #1 bottle 07/30/18 Raltegravir Potassium [Isentress 400 mg Tablet] 400 mg PO Q12 07/30/18 Truvada 200-300mg 1 tab PO DAILY 07/30/18 History of Present Illness History of Present Illness: Per H&P by Dr. Coello: BLANCA BRAR is a 48 year old male with an extensive past medical history including hypertension, glaucoma with right eye blindness, anal cancer, HIV, cocaine and tobacco abuse. His last viral load 3 months ago was undetectable. Patient presents with 24 hours of chest pain and shortness of breath which occurred after smoking crack cocaine. His pain has remained persistent 3 out of 5 intensity heavy sensation with palpitations, shortness of breath and radiation to the left shoulder. In the emergency room his workup was notable mild hypokalemia. He is referred to the hospitalist for observation. Physical Exam Vital Signs: Temp Pulse Resp BP Pulse Ox 98.2 F 69 18 99/64 L 96 07/30/18 14:15 07/30/18 14:15 07/30/18 14:15 07/30/18 12:52 07/30/18 14:15 Intake & Output 07/30/18 07/31/18 08/01/18 06:59 06:59 06:59 Weight 92.4 kg General appearance: PRESENT: no acute distress, obese, well-developed, well- nourished Head exam: PRESENT: atraumatic, normocephalic Eye exam: PRESENT: conjunctiva pink, EOMI, PERRLA. ABSENT: scleral icterus Ear exam: PRESENT: normal external ear exam Mouth exam: PRESENT: moist, tongue midline Neck exam: ABSENT: carotid bruit, JVD, lymphadenopathy, thyromegaly Respiratory exam: PRESENT: clear to auscultation caren. ABSENT: rales, rhonchi, wheezes Cardiovascular exam: PRESENT: RRR. ABSENT: diastolic murmur, rubs, systolic murmur Pulses: PRESENT: normal dorsalis pedis pul Vascular exam: PRESENT: normal capillary refill GI/Abdominal exam: PRESENT: normal bowel sounds, soft. ABSENT: distended, guarding, mass, organolmegaly, rebound, tenderness Rectal exam: PRESENT: deferred Extremities exam: PRESENT: full ROM. ABSENT: calf tenderness, clubbing, pedal edema Neurological exam: PRESENT: alert, awake, oriented to person, oriented to place, oriented to time, oriented to situation, CN II-XII grossly intact. ABSENT: motor sensory deficit Psychiatric exam: PRESENT: appropriate affect, normal mood. ABSENT: homicidal ideation, suicidal ideation Skin exam: PRESENT: dry, intact, warm. ABSENT: cyanosis, rash Results Laboratory Results: 07/30/18 08:38 07/30/18 08:38 07/29/18 07/30/18 07/30/18 20:39 02:29 02:29 Creatine Kinase 220 H CK-MB (CK-2) 1.15 Troponin I < 0.012 < 0.012 07/30/18 08:38 Creatine Kinase CK-MB (CK-2) 1.08 Troponin I < 0.012 Impressions: Chest X-Ray 07/29/18 20:39 IMPRESSION: No acute cardiopulmonary abnormality. Qualifiers - * PATIENT BEING DISCHARGED WITH ANY OF THE FOLLOWING DIAGNOSIS: No Plan Discharge Plan: Discharged home with self-care. Follow-up with primary care provider within 1 week. Discontinue propanolol; start amlodipine. Continue daily aspirin and statin therapy. Follow-up with cardiology within 2-4 weeks to discuss additional cardiac testing. Return to the emergency department as needed for concerning symptoms. Time Spent: Less than 30 Minutes
== END 2018-07-30 16:02 | disposition home or self-care (01) ==
LOC: ER 20:22 → EH 23:28 → 3N 07-30 01:17
PROVIDERS: ADMIT Internal Medicine; ATTEND Internal Medicine
DX: R07.89 Other chest pain (principal); F14.988 Cocaine use, unspecified with other cocaine-induced disorder; B20 Human immunodeficiency virus [HIV] disease; I10 Essential (primary) hypertension; H54.40 Blindness, one eye, unspecified eye; H40.89 Other specified glaucoma; R06.02 Shortness of breath; E87.6 Hypokalemia; H81.09 Meniere's disease, unspecified ear; R11.0 Nausea; R61 Generalized hyperhidrosis; Z79.899 Other long term (current) drug therapy; Z79.82 Long term (current) use of aspirin; Z85.048 Personal history of other malignant neoplasm of rectum, rectosigmoid junction, and anus; Z82.49 Family history of ischemic heart disease and other diseases of the circulatory system
CPT/HCPCS: 93005; 99285; 36415 ×2; 82553; 82550; 85025; 85027; 80048; 80053; 84484 ×2; 80307; 71045; 93010; A9270 ×7; J3490; G0378

== ENCOUNTER 2018-10-01 08:06 | Emergency (ER) | payer MEDICARE, OTHER, MEDICAID ==
[2018-10-01] MEDS ORDERED: NORMAL SALINE 1000 ML 1,000 ML IV ONE (08:23)
--- NOTE | 2018-10-01 08:50 | RADIOLOGY REPORT (SQ) ---
EXAM DESCRIPTION: CHEST 2 VIEWS COMPLETED DATE/TIME: 10/01/2018 8:43 am REASON FOR STUDY: chest pain COMPARISON: None. EXAM PARAMETERS: NUMBER OF VIEWS: two views TECHNIQUE: Digital Frontal and Lateral radiographic views of the chest acquired. RADIATION DOSE: NA LIMITATIONS: none FINDINGS: LUNGS AND PLEURA: No opacities, masses or pneumothorax. No pleural effusion. MEDIASTINUM AND HILAR STRUCTURES: No masses or contour abnormalities. HEART AND VASCULAR STRUCTURES: Heart normal size. No evidence for failure. BONES: No acute findings. HARDWARE: None in the chest. OTHER: No other significant finding. IMPRESSION: NO ACUTE RADIOGRAPHIC FINDING IN THE CHEST. TECHNICAL DOCUMENTATION: JOB ID: [id number] [employer]- All Rights Reserved Reading location - IP/workstation name: [email or web address]
[2018-10-01 09:02] LABS: ABSOLUTE LYMPHOCYTES (AUTO) 1.1 10^3/uL (0.5-4.7); ABSOLUTE MONOCYTES (AUTO) 0.2 10^3/uL (0.1-1.4); ABSOLUTE NEUT (AUTO) 1.7 10^3/uL (1.7-8.2); BASOPHILS % (AUTO) 0.5 % (0-2); EOSINOPHILS % (AUTO) 0.2 % (0-6); HEMOGLOBIN 16.2 g/dL (13.5-17.0); LYMPHOCYTES % (AUTO) 37.8 % (13-45); MEAN CORPUSCULAR HEMOGLOBIN 30.6 pg (27.0-33.4); MEAN CORPUSCULAR HGB CONC 34.5 g/dL (32.0-36.0); MEAN CORPUSCULAR VOLUME 89 fl (80-97); PLATELET COUNT 198 10^3/uL (150-450); RED BLOOD COUNT 5.29 10^6/uL (4.35-5.55); RED CELL DISTRIBUTION WIDTH 14.5 % (11.5-14.0); SEGMENTED NEUTROPHILS % (AUTO) 56.5 % (42-78); TOTAL CELLS COUNTED % (AUTO) 100 %
[2018-10-01 09:22] LABS: ALBUMIN 5.5 g/dL (3.5-5.0); ANION GAP 13 (5-19); BLOOD UREA NITROGEN 10 mg/dL (7-20); CALCIUM 10.4 mg/dL (8.4-10.2); CARBON DIOXIDE 28 mmol/L (22-30); CHLORIDE 101 mmol/L (98-107); GLUCOSE 97 mg/dL (75-110); POTASSIUM 4.3 mmol/L (3.6-5.0); SODIUM 142.4 mmol/L (137-145); TOTAL PROTEIN 9.7 g/dL (6.3-8.2)
[2018-10-01 09:25] LABS: ALANINE AMINOTRANSFERASE 39 U/L (21-72); ALKALINE PHOSPHATASE 88 U/L (38-126); ASPARTATE AMINO TRANSFERASE 37 U/L (17-59); BILIRUBIN,DIRECT 0.2 mg/dL (0.0-0.4); BILIRUBIN,TOTAL 0.6 mg/dL (0.2-1.3); CREATINE KINASE 245 U/L (55-170); LIPASE 190.4 U/L (23-300)
[2018-10-01 09:31] LABS: CREATINE KINASE MB 1.94 ng/mL (<4.55)
[2018-10-01 09:37] LABS: TROPONIN I < 0.012 ng/mL
[2018-10-01 09:39] LABS: APPEARANCE,URINE SLIGHTLY-CLOUDY; BILIRUBIN,URINE NEGATIVE (NEGATIVE); COLOR,URINE YELLOW; GLUCOSE, URINE NEGATIVE (NEGATIVE); KETONES,URINE 20 mg/dL (NEGATIVE); LEUKOCYTE ESTERASE,URINE TRACE (NEGATIVE); NITRITE,URINE NEGATIVE (NEGATIVE); PROTEIN,URINE 30 mg/dL (NEGATIVE); UROBILINOGEN,URINE NEGATIVE mg/dL (<2.0)
[2018-10-01 09:54] LABS: URINE AMPHETAMINES SCREEN NEGATIVE; URINE BARBITURATES SCREEN NEGATIVE; URINE BENZODIAZEPINES SCREEN NEGATIVE; URINE COCAINE SCREEN UNCONFIRMED POSITIVE; URINE MARIJUANA (THC) SCREEN NEGATIVE; URINE METHADONE SCREEN NEGATIVE; URINE PHENCYCLIDINE SCREEN NEGATIVE
--- NOTE | 2018-10-01 10:12 | ER Document Report ---
ED General - General Chief Complaint: Chest Pain Stated Complaint: CHEST PAIN Time Seen by Provider: 10/01/18 08:18 Primary Care Provider: SUZIE THOMAS DO [Primary Care Provider] - Follow up as needed TRAVEL OUTSIDE OF THE [place] IN LAST 30 DAYS: No - HPI Patient complains to provider of: Chest pain Notes: Patient coming in for evaluation of chest pain. Patient states chest pain started approximately 3-4 hours prior to arrival. Patient states he was using cocaine last night however did use the cocaine differently. Patient upon my evaluation states that the chest pain is subsiding. Patient denies any fevers chills nausea vomiting diarrhea. Patient is resting comfortably with patient also has a history of hypertension and HIV. - Related Data Allergies/Adverse Reactions: ciprofloxacin [Ciprofloxacin] Allergy (Intermediate, Verified 10/01/18 08:25) rash Sulfa (Sulfonamide Antibiotics) Allergy (Intermediate, Verified 10/01/18 08:25) rash tetracycline [Tetracycline] Allergy (Intermediate, Verified 10/01/18 08:25) hives, rash tiotropium [From Spiriva with HandiHaler] Allergy (Verified 10/01/18 08:25) silver [From Tegaderm AG Mesh] Adverse Reaction (Severe, Verified 10/01/18 08:25) rash codeine [Codeine] Adverse Reaction (Intermediate, Verified 10/01/18 08:25) upset stomach Past Medical History - Social History Smoking Status: Former Smoker Frequency of alcohol use: Occasional Drug Abuse: Cocaine Family History: CAD, DM, Hypertension, Thyroid Disfunction, Other - Brother heart attack at age 45 Patient has suicidal ideation: No Patient has homicidal ideation: No - Past Medical History Cardiac Medical History: Reports: Hx Hypertension Denies: Hx Coronary Artery Disease, Hx Heart Attack Pulmonary Medical History: Reports: Hx Asthma, Hx Bronchitis, Hx Pneumonia Denies: Hx COPD, Hx Sleep Apnea, Hx Tuberculosis Neurological Medical History: Reports: Hx Migraine. Denies: Hx Cerebrovascular Accident, Hx Seizures Renal/ Medical History: Reports: Hx Benign Prostatic Hyperplasia, Hx Kidney Stones. Denies: Hx Peritoneal Dialysis Musculoskeletal Medical History: Denies Hx Arthritis Skin Medical History: Reports Hx Cellulitis, Reports Hx Psoriasis Psychiatric Medical History: Reports: Hx Anxiety, Hx Bipolar Disorder Denies: Hx Depression Infectious Medical History: Reports: Hx HIV Past Surgical History: Reports: Hx Rectal Surgery, Other - Port-A-Cath, anal biopsy. Denies: Hx Pacemaker - Immunizations Immunizations up to date: Yes Hx Diphtheria, Pertussis, Tetanus Vaccination: Yes Hx Pneumococcal Vaccination: 04/26/15 Review of Systems - Review of Systems Constitutional: No symptoms reported EENT: No symptoms reported Cardiovascular: Chest pain Respiratory: No symptoms reported Gastrointestinal: No symptoms reported Genitourinary: No symptoms reported Male Genitourinary: No symptoms reported Musculoskeletal: No symptoms reported Skin: No symptoms reported Hematologic/Lymphatic: No symptoms reported Neurological/Psychological: No symptoms reported -: Yes All other systems reviewed and negative Physical Exam - Vital signs Vitals: Resp Pulse Ox 18 99 10/01/18 08:14 10/01/18 08:14 Interpretation: Normal - General General appearance: Appears well, Alert - HEENT Head: Normocephalic, Atraumatic Eyes: Normal Pupils: PERRL - Respiratory Respiratory status: No respiratory distress Chest status: Nontender Breath sounds: Normal Chest palpation: Normal - Cardiovascular Rhythm: Regular Heart sounds: Normal auscultation Murmur: No - Abdominal Inspection: Normal Distension: No distension Bowel sounds: Normal Tenderness: Nontender Organomegaly: No organomegaly - Back Back: Normal, Nontender - Extremities General upper extremity: Normal inspection, Nontender, Normal color, Normal ROM, Normal temperature General lower extremity: Normal inspection, Nontender, Normal color, Normal ROM, Normal temperature, Normal weight bearing. No: Davey's sign - Neurological Neuro grossly intact: Yes Cognition: Normal Orientation: AAOx4 Bynum Coma Scale Eye Opening: Spontaneous Liv Coma Scale Verbal: Oriented Liv Coma Scale Motor: Obeys Commands Bynum Coma Scale Total: 15 Speech: Normal Motor strength normal: LUE, RUE, LLE, RLE Sensory: Normal - Psychological Associated symptoms: Normal affect, Normal mood - Skin Skin Temperature: Warm Skin Moisture: Dry Skin Color: Normal Course - Re-evaluation Re-evalutation: 10/01/18 14:14 The patient has atypical chest pain as the patient's chest pain is not suggestive of pulmonary embolus, cardiac ischemia, aortic dissection, or other serious etiology. Given the extremely low risk of these diagnoses further t esting and evaluation for these possibilities does not appear to be indicated at this time. The patient has been instructed to return if the symptoms worsen or change in any way. - Vital Signs Vital signs: Temp Pulse Resp BP Pulse Ox 98.1 F 16 130/82 H 99 10/01/18 08:26 10/01/18 10:01 10/01/18 10:01 10/01/18 10:01 - Laboratory Result Diagrams: 10/01/18 08:00 10/01/18 08:00 Laboratory results interpreted by me: 10/01/18 10/01/18 10/01/18 08:00 08:00 09:24 WBC 3.0 L RDW 14.5 H Calcium 10.4 H Creatine Kinase 245 H Total Protein 9.7 H Albumin 5.5 H Urine Protein 30 H Urine Ketones 20 H Urine Blood SMALL H Ur Leukocyte Esterase TRACE H Discharge - Discharge Clinical Impression: Cocaine use, Chest pain in adult, HIV (human immunodeficiency virus infection) Condition: Good Disposition: HOME, SELF-CARE Instructions: Chest Wall Pain ([facility]), Chest Pain of Unclear Cause ([facility]) Additional Instructions: Your evaluation today does not show any signs of cardiac damage EKG troponins are negative chest x-ray is also negative. I have recommended follow-up with your primary care physician return to the ER if symptoms worsen. Referrals: SUZIE THOMAS DO [Primary Care Provider] - Follow up as needed
[2018-10-01 10:25] VITALS: BP 130/82
--- NOTE | 2018-10-04 13:32 | EKG REPORT ---
SEVERITY:- ABNORMAL ECG - SINUS ARRHYTHMIA, RATE 53-[address] ST ELEVATION NORMAL VAIANT CONSIDER [place]. : Confirmed by: Olu Torres MD 04-Oct-2018 13:31:42
== END 2018-10-01 10:24 | disposition home or self-care (01) ==
LOC: ER 08:06
DX: F14.90 Cocaine use, unspecified, uncomplicated (principal); R07.9 Chest pain, unspecified; B20 Human immunodeficiency virus [HIV] disease; I10 Essential (primary) hypertension; J45.909 Unspecified asthma, uncomplicated; Z87.891 Personal history of nicotine dependence
CPT/HCPCS: 93005; 99285; 96360; 96361; 36415; 82553; 82550; 83690; 85025; 80053; 81001; 84484; 80307; 71046; 93010; J7030

== ENCOUNTER 2018-11-27 11:12 | Emergency (ER) | payer OTHER, MEDICARE, MEDICAID ==
[2018-11-27] MEDS ORDERED: ASPIRIN 81 MG TABLET, CHEWABLE PO ONE (11:30)
--- NOTE | 2018-11-27 11:31 | ER Document Report ---
Addendum entered and electronically signed by MANUEL GEORGE NP 11/27/18 11:38: ED Medical Screen (RME) - General Chief Complaint: Blood Pressure Problem Stated Complaint: BLOOD PRESSURE ISSUES Time Seen by Provider: 11/27/18 11:24 Primary Care Provider: SUZIE THOMAS DO [Primary Care Provider] - Follow up as needed Mode of Arrival: Ambulatory TRAVEL OUTSIDE OF THE [place] IN LAST 30 DAYS: No - HPI Notes: 11/27/18 11:38 Patient also complaining of ringing in his ears. He states that he took #7 325 mg aspirin this morning. - Related Data Allergies/Adverse Reactions: ciprofloxacin [Ciprofloxacin] Allergy (Intermediate, Verified 11/27/18 11:13) rash Sulfa (Sulfonamide Antibiotics) Allergy (Intermediate, Verified 11/27/18 11:13) rash tetracycline [Tetracycline] Allergy (Intermediate, Verified 11/27/18 11:13) hives, rash tiotropium [From Spiriva with HandiHaler] Allergy (Verified 11/27/18 11:13) silver [From Tegaderm AG Mesh] Adverse Reaction (Severe, Verified 11/27/18 11:13) rash codeine [Codeine] Adverse Reaction (Intermediate, Verified 11/27/18 11:13) upset stomach Original Note: ED Medical Screen (RME) - General Chief Complaint: Blood Pressure Problem Stated Complaint: BLOOD PRESSURE ISSUES Time Seen by Provider: 11/27/18 11:24 Primary Care Provider: SUZIE THOMAS DO [Primary Care Provider] - Follow up as needed Mode of Arrival: Ambulatory Information source: Patient TRAVEL OUTSIDE OF THE [place] IN LAST 30 DAYS: No - HPI Patient complains to provider of: GALLO Notes: 11/27/18 11:30 Patient here with complaints of chest pain. The patient has a history of cocain e abuse. He smokes cocaine. He states that he smokes him this morning and then started to feel like his blood pressure was up he had ringing in his ears felt like his head was going to pop and had chest tightness. Has had this in the past. He has a history of hypertension as well. No history of high cholesterol, diabetes or known CAD. Patient is HIV positive. Exam No distress, nontoxic-appearing. Lungs clear and equal throughout. Heart sounds normal. Plan CBC, CMP, troponin, CK, CK-MB, EKG, chest x-ray An initial examination was made on the patient as part of the triage process, and it was determined a more comprehensive evaluation was necessary. Initial labs were ordered and patient was transferred to another provider in the ED who assumed care and finished evaluation and plan. - Related Data Allergies/Adverse Reactions: ciprofloxacin [Ciprofloxacin] Allergy (Intermediate, Verified 11/27/18 11:13) rash Sulfa (Sulfonamide Antibiotics) Allergy (Intermediate, Verified 11/27/18 11:13) rash tetracycline [Tetracycline] Allergy (Intermediate, Verified 11/27/18 11:13) hives, rash tiotropium [From Spiriva with HandiHaler] Allergy (Verified 11/27/18 11:13) silver [From Tegaderm AG Mesh] Adverse Reaction (Severe, Verified 11/27/18 11:13) rash codeine [Codeine] Adverse Reaction (Intermediate, Verified 11/27/18 11:13) upset stomach Past Medical History - Past Medical History Cardiac Medical History: Reports: Hx Hypertension Denies: Hx Coronary Artery Disease, Hx Heart Attack Pulmonary Medical History: Reports: Hx Asthma, Hx Bronchitis, Hx Pneumonia Denies: Hx COPD, Hx Sleep Apnea, Hx Tuberculosis Neurological Medical History: Reports: Hx Migraine. Denies: Hx Cerebrovascular Accident, Hx Seizures Renal/ Medical History: Reports: Hx Benign Prostatic Hyperplasia, Hx Kidney S tones. Denies: Hx Peritoneal Dialysis Musculoskeltal Medical History: Denies Hx Arthritis Skin Medical History: Reports Hx Cellulitis, Reports Hx Psoriasis Psychiatric Medical History: Reports: Hx Anxiety, Hx Bipolar Disorder Denies: Hx Depression Infectious Medical History: Reports: Hx HIV Past Surgical History: Reports: Hx Rectal Surgery, Other - Port-A-Cath, anal biopsy. Denies: Hx Pacemaker - Immunizations Immunizations up to date: Yes Hx Diphtheria, Pertussis, Tetanus Vaccination: Yes Doctor's Discharge - Discharge Referrals: SUZIE THOMAS DO [Primary Care Provider] - Follow up as needed
[2018-11-27 12:11] LABS: ABSOLUTE LYMPHOCYTES (AUTO) 2.1 10^3/uL (0.5-4.7); ABSOLUTE MONOCYTES (AUTO) 0.2 10^3/uL (0.1-1.4); BASOPHILS % (AUTO) 0.7 % (0-2); EOSINOPHILS % (AUTO) 0.4 % (0-6); HEMATOCRIT 45.1 % (37.9-51.0); HEMOGLOBIN 15.2 g/dL (13.5-17.0); LYMPHOCYTES % (AUTO) 47.7 % (13-45); MEAN CORPUSCULAR HEMOGLOBIN 29.8 pg (27.0-33.4); MEAN CORPUSCULAR HGB CONC 33.7 g/dL (32.0-36.0); MEAN CORPUSCULAR VOLUME 88 fl (80-97); MONOCYTES % (AUTO) 4.6 % (3-13); PLATELET COUNT 220 10^3/uL (150-450); RED BLOOD COUNT 5.11 10^6/uL (4.35-5.55); RED CELL DISTRIBUTION WIDTH 13.5 % (11.5-14.0); SEGMENTED NEUTROPHILS % (AUTO) 46.6 % (42-78); TOTAL CELLS COUNTED % (AUTO) 100 %; WHITE BLOOD COUNT 4.3 10^3/uL (4.0-10.5)
--- NOTE | 2018-11-27 12:28 | RADIOLOGY REPORT (SQ) ---
EXAM DESCRIPTION: CHEST SINGLE VIEW COMPLETED DATE/TIME: 11/27/2018 11:56 am REASON FOR STUDY: CP COMPARISON: 10/01/2018 TECHNIQUE: Single frontal radiographic view of the chest acquired. NUMBER OF VIEWS: One view. LIMITATIONS: None. FINDINGS: LUNGS AND PLEURA: No pneumothorax. No consolidation or pleural effusion. MEDIASTINUM AND HILAR STRUCTURES: Stable. HEART AND VASCULAR STRUCTURES: Stable. BONES: No acute findings. HARDWARE: None in the chest. OTHER: No other significant finding. IMPRESSION: NO ACUTE FINDINGS. TECHNICAL DOCUMENTATION: JOB ID: [id number] [place]-72 2010 [employer]- All Rights Reserved Reading location - IP/workstation name: [email or web address]
[2018-11-27 12:29] LABS: ALANINE AMINOTRANSFERASE 31 U/L (21-72); ALBUMIN 4.4 g/dL (3.5-5.0); ALKALINE PHOSPHATASE 75 U/L (38-126); ANION GAP 14 (5-19); ASPARTATE AMINO TRANSFERASE 24 U/L (17-59); BILIRUBIN,DIRECT 0.2 mg/dL (0.0-0.4); BILIRUBIN,TOTAL 0.2 mg/dL (0.2-1.3); BLOOD UREA NITROGEN 10 mg/dL (7-20); CALCIUM 10.2 mg/dL (8.4-10.2); CARBON DIOXIDE 28 mmol/L (22-30); CHLORIDE 103 mmol/L (98-107); CREATINE KINASE 206 U/L (55-170); GLUCOSE 90 mg/dL (75-110); TOTAL PROTEIN 8.3 g/dL (6.3-8.2)
[2018-11-27 12:40] LABS: CREATINE KINASE MB 2.48 ng/mL (<4.55)
[2018-11-27 12:41] LABS: TROPONIN I < 0.012 ng/mL
[2018-11-27 12:41] LABS: ACETAMINOPHEN < 10 ug/mL (10-30)
[2018-11-27 12:44] LABS: SALICYLATE 27.6 mg/dL (2.0-20.0)
[2018-11-27] MEDS ORDERED: NORMAL SALINE 1000 ML 1,000 ML IV ONE ×2 (13:04→14:21)
--- NOTE | 2018-11-27 13:36 | ER Document Report ---
Entered by ZO FABIAN SCRIBE 11/27/18 0198 Acting as scribe for:BLAS LEDESMA MD ED General - General Chief Complaint: Blood Pressure Problem Stated Complaint: BLOOD PRESSURE ISSUES Time Seen by Provider: 11/27/18 11:24 Primary Care Provider: SUZIE CUEVA DO [Primary Care Provider] - 11/29/18 Mode of Arrival: Ambulatory Information source: Patient Notes: Patient is a 48 year old male with HIV, anal cancer and a history of crack cocaine abuse presents to the emergency department complaining of anxiety with associated symptoms of chest pain. Patient states he was up all night smoking crack cocaine. He state around 0900 he smoked more crack cocaine and began to have chest pain, described as chest tightness, shortly after. Patient states the pain was intermittent for approximately 1 hr and he proceeded to take 7 tablets of 325mg Aspirin. Patient states he did not realize he took full strength Aspirin. Patient contributes his chest tightness to anxiety and states his anxiety has subsided. He currently only complains of ringing in his ears. Patient states his PCP is Dr. Cueva. TRAVEL OUTSIDE OF THE [place] IN LAST 30 DAYS: No - Related Data Allergies/Adverse Reactions: ciprofloxacin [Ciprofloxacin] Allergy (Intermediate, Verified 11/27/18 11:13) rash Sulfa (Sulfonamide Antibiotics) Allergy (Intermediate, Verified 11/27/18 11:13) rash tetracycline [Tetracycline] Allergy (Intermediate, Verified 11/27/18 11:13) hives, rash tiotropium [From Spiriva with HandiHaler] Allergy (Verified 11/27/18 11:13) silver [From Tegaderm AG Mesh] Adverse Reaction (Severe, Verified 11/27/18 11:13) rash codeine [Codeine] Adverse Reaction (Intermediate, Verified 11/27/18 11:13) upset stomach Past Medical History - General Information source: Patient - Social History Smoking Status: Never Smoker Frequency of alcohol use: Occasional Drug Abuse: Cocaine Family History: CAD, DM, Hypertension, Thyroid Disfunction, Other - Brother heart attack at age 45 Patient has suicidal ideation: No Patient has homicidal ideation: No - Past Medical History Cardiac Medical History: Reports: Hx Hypertension Pulmonary Medical History: Reports: Hx Asthma, Hx Bronchitis, Hx Pneumonia Neurological Medical History: Reports: Hx Migraine Renal/ Medical History: Reports: Hx Benign Prostatic Hyperplasia, Hx Kidney Stones Skin Medical History: Reports Hx Cellulitis, Reports Hx Psoriasis Psychiatric Medical History: Reports: Hx Anxiety, Hx Bipolar Disorder Infectious Medical History: Reports: Hx HIV Past Surgical History: Reports: Hx Rectal Surgery, Other - Port-A-Cath, anal biopsy - Immunizations Immunizations up to date: Yes Hx Diphtheria, Pertussis, Tetanus Vaccination: Yes Hx Pneumococcal Vaccination: 04/26/15 Review of Systems - Review of Systems Constitutional: No symptoms reported EENT: See HPI Cardiovascular: See HPI, Chest pain Respiratory: No symptoms reported Gastrointestinal: No symptoms reported Genitourinary: No symptoms reported Male Genitourinary: No symptoms reported Musculoskeletal: No symptoms reported Skin: No symptoms reported Hematologic/Lymphatic: No symptoms reported Neurological/Psychological: See HPI, Anxiety -: Yes All other systems reviewed and negative Physical Exam - Vital signs Vitals: Temp Pulse Resp BP Pulse Ox 98.5 F 82 16 126/85 H 97 11/27/18 11:21 11/27/18 11:21 11/27/18 11:21 11/27/18 11:21 11/27/18 11:21 - Notes Notes: GENERAL: Alert, interacts well. No acute distress. HEAD: Normocephalic, atraumatic. EYES: Pupils equal, round, and reactive to light. Extraocular movements intact. ENT: Oral mucosa moist, tongue midline. NECK: Full range of motion. Supple. Trachea midline. LUNGS: Clear to auscultation bilaterally, no wheezes, rales, or rhonchi. No respiratory distress. HEART: Regular rate and rhythm. No murmurs, gallops, or rubs. ABDOMEN: Soft, non-tender. Non-distended. Bowel sounds present in all 4 quadrants. No guarding, rigidity, or rebound. EXTREMITIES: Moves all 4 extremities spontaneously. NEUROLOGICAL: Alert and oriented x3. Normal speech. PSYCH: Normal affect, normal mood. SKIN: Warm, dry, normal turgor. No rashes or lesions noted. Course - Re-evaluation Re-evalutation: 11/27/18 15:24 Patient's EKG does not show acute changes. Chest x-ray does not show pulmonary edema. Serial troponins are undetectable. The patient's elevated aspirin level is coming down on repeat testing. He is chest pain-free at this time. - Vital Signs Vital signs: Temp Pulse Resp BP Pulse Ox 98.1 F 82 18 114/75 96 11/27/18 13:01 11/27/18 11:21 11/27/18 13:01 11/27/18 13:01 11/27/18 13:01 - Laboratory Result Diagrams: 11/27/18 11:35 11/27/18 11:35 Laboratory results interpreted by me: 11/27/18 11/27/18 11/27/18 11:35 11:35 12:32 Lymphocytes % 47.7 H Creatine Kinase 206 H Total Protein 8.3 H Salicylates 27.6 H* Acetaminophen < 10 L 11/27/18 13:20 Lymphocytes % Creatine Kinase Total Protein Salicylates 26.1 H* Acetaminophen - Diagnostic Test Radiology reviewed: Reports reviewed - Chest x-ray does not show acute changes. - EKG Interpretation by Me EKG shows normal: Sinus rhythm, [place], Intervals, QRS Complexes, ST-T Waves Rate: Normal - 77 Rhythm: NSR Voltage: Consistant with LVH When compared to previous EKG there are: No significant change Discharge - Discharge Clinical Impression: Cocaine abuse Chest pain Qualifiers: Chest pain type: unspecified Qualified Code(s): R07.9 - Chest pain, unspecified Aspirin overdose Qualifiers: Encounter type: initial encounter Injury intent: accidental or unintentional Qu alified Code(s): T39.011A - Poisoning by aspirin, accidental (unintentional), initial encounter Condition: Stable Disposition: HOME, SELF-CARE Additional Instructions: Overdose: You have taken more medication than you should have. After your evaluation and care, it is felt that your overdose is not likely to be harmful or of any significant consequences to you and you are being discharged. In the future, you should be careful not to take more medications than what is prescribed for you. Although your overdose does not seem to be of any danger to you at this time, if you develop any unusual or unexpected symptoms after your discharge, you should return to the Emergency Department immediately for re-evaluation. Chest Pain: Your chest pain was most likely caused by the cocaine your smoking. There is no evidence of injury to the heart muscle at this time. Cocaine Abuse: Cocaine causes many dangerous medical problems. Problems can occur even with "usual" amounts. Cocaine affects judgement, creating a sense of invulnerability. Cocaine users often make bad decisions that seem "great" at the time. Most cocaine users eventually will be hurt by bad job performance, [place] personal relations, crime, and unsafe sexual practices. Toxic effects of cocaine can include seizures, hallucinations, delusions, high blood pressure, heart damage, or sudden . There's always the risk of a "bad batch." But heart attacks, brain hemorrhages, or cardiac arrest can occ ur unpredictably even with "normal" use. Injection of cocaine is risky for abscesses, endocarditis (heart infection), pneumonia, and AIDS. Withdrawal from cocaine often causes anxiety and drug cravings. Some users become paranoid and psychotic. Many treatment programs are available, but you must make the decision to quit. Medication can be prescribed to control the symptoms of cocaine toxicity (beta blockers or benzodiazepines). Withdrawal symptoms may require tranquilizers. * You will need to drink plenty of fluids throughout the day to help lower your aspirin levels. Do not drink any alcohol. Do not eat any spicy foods. Stop using cocaine and any other illegal drugs. Follow-up with your doctor Thursday for recheck. RETURN TO THE EMERGENCY ROOM IF ANY NEW OR WORSENING SYMPTOMS. Referrals: SUZIE CUEVA DO [Primary Care Provider] - 11/29/18 Scribe Attestation: 11/27/18 15:22 I personally performed the services described in the documentation, reviewed and edited the documentation which was dictated to the scribe in my presence, and it accurately records my words and actions. I personally performed the services described in the documentation, reviewed and edited the documentation which was dictated to the scribe in my presence, and it accurately records my words and actions.
[2018-11-27 15:12] LABS: APPEARANCE,URINE CLOUDY; BILIRUBIN,URINE NEGATIVE (NEGATIVE); COLOR,URINE YELLOW; GLUCOSE, URINE NEGATIVE (NEGATIVE); KETONES,URINE NEGATIVE (NEGATIVE); LEUKOCYTE ESTERASE,URINE NEGATIVE (NEGATIVE); NITRITE,URINE NEGATIVE (NEGATIVE); PROTEIN,URINE NEGATIVE (NEGATIVE); URINE SPECIFIC GRAVITY 1.016; UROBILINOGEN,URINE NEGATIVE mg/dL (<2.0)
[2018-11-27] MEDS ORDERED: PANTOPRAZOLE SODIUM 40 MG TABLET.DR PO ONE (15:22)
[2018-11-27 15:25] LABS: URINE AMPHETAMINES SCREEN NEGATIVE; URINE BARBITURATES SCREEN NEGATIVE; URINE BENZODIAZEPINES SCREEN NEGATIVE; URINE COCAINE SCREEN UNCONFIRMED POSITIVE; URINE MARIJUANA (THC) SCREEN NEGATIVE; URINE METHADONE SCREEN NEGATIVE; URINE PHENCYCLIDINE SCREEN NEGATIVE
[2018-11-27] MEDS ORDERED: MAG HYDROX/AL HYDROX/SIMETH SUSP 30 ML UDCUP PO ONE (15:29)
[2018-11-27 16:05] VITALS: BP 107/67
--- NOTE | 2018-11-27 22:55 | EKG REPORT ---
SEVERITY:- ABNORMAL ECG - SINUS RHYTHM LEFT VENTRICULAR HYPERTROPHY : Confirmed by: Rui Logan 27-Nov-2018 22:54:42
== END 2018-11-27 16:16 | disposition home or self-care (01) ==
LOC: ER 11:12
DX: F14.10 Cocaine abuse, uncomplicated (principal); F41.9 Anxiety disorder, unspecified; R07.89 Other chest pain; T39.011A Poisoning by aspirin, accidental (unintentional), initial encounter; H93.13 Tinnitus, bilateral; I10 Essential (primary) hypertension; J45.909 Unspecified asthma, uncomplicated; Z21 Asymptomatic human immunodeficiency virus [HIV] infection status; Z85.048 Personal history of other malignant neoplasm of rectum, rectosigmoid junction, and anus; Z88.1 Allergy status to other antibiotic agents; Z88.2 Allergy status to sulfonamides; Z88.8 Allergy status to other drugs, medicaments and biological substances
CPT/HCPCS: 93005; 99284; 96360; 96361; 36415; 82553; 82550; 80307 ×3; 85025; 80053; 81001; 84484; 71045; 93010; J7030; J3490

== ENCOUNTER 2018-12-29 16:40 | Emergency (ER) | payer OTHER, MEDICARE, MEDICAID ==
--- NOTE | 2018-12-29 17:14 | ER Document Report ---
Addendum entered and electronically signed by MART BA NP 12/29/18 17:29: Course - Re-evaluation Re-evalutation: 12/29/18 17:29 Patient now states that he has been taking his antiviral medication for the past month he just did not refill his prescription for the medicines. - Vital Signs Vital signs: Temp Pulse Resp BP Pulse Ox 98.5 F 77 14 119/76 97 12/29/18 16:57 12/29/18 16:57 12/29/18 16:57 12/29/18 16:57 12/29/18 16:57 Original Note: ED Medical Screen (RME) - General Chief Complaint: Chest Pressure Stated Complaint: CHEST PRESSURE Time Seen by Provider: 12/29/18 17:08 Primary Care Provider: SUZIE THOMAS DO [Primary Care Provider] - Follow up as needed Mode of Arrival: Ambulatory Information source: Patient Notes: Patient reports chest pain from the left side of the chest that radiates across to the right side in the right upper extremity that started yesterday after smoking crack cocaine. Patient reports shortness of breath yesterday that is now resolved. Patient denies any cough nausea or vomiting. Patient also has a history of HIV and has been off his antiviral medicines for the past month. I have greeted and performed a rapid initial assessment of this patient. A comprehensive ED assessment and evaluation of the patient, analysis of test results and completion of the medical decision making process will be conducted by additional ED providers. TRAVEL OUTSIDE OF THE [place] IN LAST 30 DAYS: No - Related Data Allergies/Adverse Reactions: ciprofloxacin [Ciprofloxacin] Allergy (Intermediate, Verified 11/27/18 11:13) rash Sulfa (Sulfonamide Antibiotics) Allergy (Intermediate, Verified 11/27/18 11:13) rash tetracycline [Tetracycline] Allergy (Intermediate, Verified 11/27/18 11:13) hives, rash tiotropium [From Spiriva with HandiHaler] Allergy (Verified 11/27/18 11:13) silver [From Tegaderm AG Mesh] Adverse Reaction (Severe, Verified 11/27/18 11:13) rash codeine [Codeine] Adverse Reaction (Intermediate, Verified 11/27/18 11:13) upset stomach Past Medical History - Past Medical History Cardiac Medical History: Reports: Hx Hypertension Denies: Hx Coronary Artery Disease, Hx Heart Attack Pulmonary Medical History: Reports: Hx Asthma, Hx Bronchitis, Hx Pneumonia Denies: Hx COPD, Hx Sleep Apnea, Hx Tuberculosis Neurological Medical History: Reports: Hx Migraine. Denies: Hx Cerebrovascular Accident, Hx Seizures Renal/ Medical History: Reports: Hx Benign Prostatic Hyperplasia, Hx Kidney Stones. Denies: Hx Peritoneal Dialysis Musculoskeltal Medical History: Denies Hx Arthritis Skin Medical History: Reports Hx Cellulitis, Reports Hx Psoriasis Psychiatric Medical History: Reports: Hx Anxiety, Hx Bipolar Disorder Denies: Hx Depression Infectious Medical History: Reports: Hx HIV Past Surgical History: Reports: Hx Rectal Surgery, Other - Port-A-Cath, anal biopsy. Denies: Hx Pacemaker - Immunizations Immunizations up to date: Yes Hx Diphtheria, Pertussis, Tetanus Vaccination: Yes Physical Exam - Vital signs Vitals: Temp Pulse Resp BP Pulse Ox 98.5 F 77 14 119/76 97 12/29/18 16:57 12/29/18 16:57 12/29/18 16:57 12/29/18 16:57 12/29/18 16:57 - Respiratory Respiratory status: No respiratory distress Chest palpation: Normal. No: Tender - Cardiovascular Rhythm: Regular Heart sounds: S1 appreciated, S2 appreciated Course - Vital Signs Vital signs: Temp Pulse Resp BP Pulse Ox 98.5 F 77 14 119/76 97 12/29/18 16:57 12/29/18 16:57 12/29/18 16:57 12/29/18 16:57 12/29/18 16:57 Doctor's Discharge - Discharge Referrals: SUZIE THOMAS DO [Primary Care Provider] - Follow up as needed
[2018-12-29 17:51] LABS: ABSOLUTE LYMPHOCYTES (AUTO) 1.4 10^3/uL (0.5-4.7); ABSOLUTE MONOCYTES (AUTO) 0.3 10^3/uL (0.1-1.4); ABSOLUTE NEUT (AUTO) 1.2 10^3/uL (1.7-8.2); BASOPHILS % (AUTO) 0.8 % (0-2); EOSINOPHILS % (AUTO) 0.6 % (0-6); HEMATOCRIT 43.9 % (37.9-51.0); LYMPHOCYTES % (AUTO) 47.9 % (13-45); MEAN CORPUSCULAR HEMOGLOBIN 29.8 pg (27.0-33.4); MEAN CORPUSCULAR HGB CONC 34.1 g/dL (32.0-36.0); MEAN CORPUSCULAR VOLUME 87 fl (80-97); PLATELET COUNT 192 10^3/uL (150-450); RED BLOOD COUNT 5.03 10^6/uL (4.35-5.55); SEGMENTED NEUTROPHILS % (AUTO) 40.7 % (42-78); TOTAL CELLS COUNTED % (AUTO) 100 %; WHITE BLOOD COUNT 2.9 10^3/uL (4.0-10.5)
--- NOTE | 2018-12-29 17:56 | RADIOLOGY REPORT (SQ) ---
EXAM DESCRIPTION: CHEST 2 VIEWS COMPLETED DATE/TIME: 12/29/2018 5:22 pm REASON FOR STUDY: cp COMPARISON: 11/27/2018 EXAM PARAMETERS: NUMBER OF VIEWS: two views TECHNIQUE: Digital Frontal and Lateral radiographic views of the chest acquired. RADIATION DOSE: NA LIMITATIONS: none FINDINGS: LUNGS AND PLEURA: No opacities, masses or pneumothorax. No pleural effusion. MEDIASTINUM AND HILAR STRUCTURES: No masses or contour abnormalities. HEART AND VASCULAR STRUCTURES: Heart normal size. No evidence for failure. BONES: No acute findings. HARDWARE: None in the chest. OTHER: No other significant finding. IMPRESSION: NO ACUTE RADIOGRAPHIC FINDING IN THE CHEST. TECHNICAL DOCUMENTATION: JOB ID: [id number] [employer]- All Rights Reserved Reading location - IP/workstation name: [email or web address]
[2018-12-29 18:09] LABS: ALANINE AMINOTRANSFERASE 29 U/L (21-72); ALBUMIN 4.7 g/dL (3.5-5.0); ALKALINE PHOSPHATASE 61 U/L (38-126); ANION GAP 12 (5-19); ASPARTATE AMINO TRANSFERASE 31 U/L (17-59); BILIRUBIN,DIRECT 0.2 mg/dL (0.0-0.4); BILIRUBIN,TOTAL 0.7 mg/dL (0.2-1.3); BLOOD UREA NITROGEN 16 mg/dL (7-20); CALCIUM 9.8 mg/dL (8.4-10.2); CARBON DIOXIDE 31 mmol/L (22-30); CHLORIDE 101 mmol/L (98-107); GLUCOSE 98 mg/dL (75-110); LIPASE 280.3 U/L (23-300); POTASSIUM 4.2 mmol/L (3.6-5.0); SODIUM 143.5 mmol/L (137-145); TOTAL PROTEIN 8.7 g/dL (6.3-8.2)
--- NOTE | 2018-12-29 18:22 | EKG REPORT ---
SEVERITY:- BORDERLINE ECG - SINUS RHYTHM EARLY PRECORDIAL TRANSITION. CONSIDER OLD TRUE POST [place] , CLINICAL CORRELATION IS IMPORTANT. : Confirmed by: Olu Torres MD 29-Dec-2018 18:21:33
--- NOTE | 2018-12-29 18:40 | ER Document Report ---
ED General - General Chief Complaint: Chest Pressure Stated Complaint: CHEST PRESSURE Time Seen by Provider: 12/29/18 17:08 Primary Care Provider: SUZIE THOMAS DO [Primary Care Provider] - Follow up tomorrow Mode of Arrival: Ambulatory Information source: Patient Notes: This is a 48-year-old man with no cancer, crack cocaine use (states he last used a few days ago) who states he started having some numbness across his chest yesterday at 11 PM that was there constantly even when he slapped and when he wake woke up this morning. The discomfort went away by itself during the day. He denied any exacerbation factors or anything that improved it. He just came a nd eventually went. He denied any shortness of breath. He denied any diaphoresis he denied any radiation to the arms or to the back. TRAVEL OUTSIDE OF THE [place] IN LAST 30 DAYS: No - HPI Onset: Yesterday Onset/Duration: Gradual Quality of pain: Dull Severity: None Pain Level: Denies Associated symptoms: Chest pain. denies: Fever, Shortness of breath Exacerbated by: Denies Relieved by: Denies Similar symptoms previously: Yes Recently seen / treated by doctor: No - Related Data Allergies/Adverse Reactions: ciprofloxacin [Ciprofloxacin] Allergy (Intermediate, Verified 11/27/18 11:13) rash Sulfa (Sulfonamide Antibiotics) Allergy (Intermediate, Verified 11/27/18 11:13) rash tetracycline [Tetracycline] Allergy (Intermediate, Verified 11/27/18 11:13) hives, rash tiotropium [From Spiriva with HandiHaler] Allergy (Verified 11/27/18 11:13) silver [From Tegaderm AG Mesh] Adverse Reaction (Severe, Verified 11/27/18 11:13) rash codeine [Codeine] Adverse Reaction (Intermediate, Verified 11/27/18 11:13) upset stomach Past Medical History - General Information source: Patient - Social History Smoking Status: Never Smoker Cigarette use (# per day): No Chew tobacco use (# tins/day): No Frequency of alcohol use: Social Drug Abuse: Cocaine Lives with: Alone Family History: CAD, DM, Hypertension, Thyroid Disfunction, Other - Brother heart attack at age 45 Patient has suicidal ideation: No Patient has homicidal ideation: No - Past Medical History Cardiac Medical History: Reports: Hx Hypertension Denies: Hx Coronary Artery Disease, Hx Heart Attack Pulmonary Medical History: Reports: Hx Asthma, Hx Bronchitis, Hx Pneumonia Denies: Hx COPD, Hx Sleep Apnea, Hx Tuberculosis Neurological Medical History: Reports: Hx Migraine. Denies: Hx Cerebrovascular Accident, Hx Seizures Renal/ Medical History: Reports: Hx Benign Prostatic Hyperplasia, Hx Kidney Stones. Denies: Hx Peritoneal Dialysis Musculoskeletal Medical History: Denies Hx Arthritis Skin Medical History: Reports Hx Cellulitis, Reports Hx Psoriasis Psychiatric Medical History: Reports: Hx Anxiety, Hx Bipolar Disorder Denies: Hx Depression Infectious Medical History: Reports: Hx HIV Past Surgical History: Reports: Hx Rectal Surgery, Other - Port-A-Cath, anal biopsy. Denies: Hx Pacemaker - Immunizations Immunizations up to date: Yes Hx Diphtheria, Pertussis, Tetanus Vaccination: Yes Hx Pneumococcal Vaccination: 04/26/15 Review of Systems - Review of Systems Constitutional: denies: Chills, Fever EENT: No symptoms reported Cardiovascular: See HPI Respiratory: No symptoms reported Gastrointestinal: No symptoms reported Genitourinary: No symptoms reported Male Genitourinary: No symptoms reported Musculoskeletal: See HPI Skin: No symptoms reported Hematologic/Lymphatic: No symptoms reported Neurological/Psychological: No symptoms reported Physical Exam - Vital signs Vitals: Temp Pulse Resp BP Pulse Ox 98.5 F 77 14 119/76 97 12/29/18 16:57 12/29/18 16:57 12/29/18 16:57 12/29/18 16:57 12/29/18 16:57 Notes: Physical exam: GENERAL: Patient is alert and oriented x3, no acute distress. His blood pressure is 115/77, pulse 76, O2 sat 100% on room air, respiratory rate 16. He denies any discomfort at this time. He has normal sinus rhythm on the monitor HEAD: Atraumatic, normocephalic. EYES: Pupils equal round and reactive to light, extraocular movements intact, sclera anicteric, conjunctiva are normal. ENT: TMs normal, nares patent, oropharynx clear without exudates. Moist mucous membranes. NECK: Normal range of motion, supple without obvious mass or JVD. LUNGS: Breath sounds clear to auscultation bilaterally and equal. No wheezes rales or rhonchi. HEART: Regular rate and rhythm without murmurs, rubs or gallops. ABDOMEN: Soft, normoactive bowel sounds. No tenderness to palpation. No guarding, no rebound. No masses appreciated. EXTREMITIES: Normal range of motion, no pitting or edema. No clubbing or cyanosis. Distal pulses are 2+ radial and dorsal pedal. NEUROLOGICAL: Cranial nerves II through XII grossly intact. Normal speech, moving all extremities. PSYCH: Normal mood, normal affect. SKIN: Warm, Dry, normal turgor, no rashes or lesions noted. Course - Re-evaluation Re-evalutation: 12/30/18 01:59 Patient was observed several hours. He remained pain-free. His pain started 24 hours previously. Serial troponins were negative. EKG was normal sinus rhythm with no acute process. I did speak with the patient about the risks of acute [place] and acute stroke with cocaine. I have advised him to stop. - Vital Signs Vital signs: Temp Pulse Resp BP Pulse Ox 98.2 F 76 18 99/75 L 100 12/30/18 00:25 12/30/18 00:25 12/30/18 00:25 12/30/18 00:25 12/30/18 00:07 - Laboratory Result Diagrams: 12/29/18 17:37 12/29/18 17:37 Laboratory results interpreted by me: 12/29/18 12/29/18 12/29/18 17:37 17:37 19:55 WBC 2.9 L Seg Neutrophils % 40.7 L Lymphocytes % 47.9 H Absolute Neutrophils 1.2 L Carbon Dioxide 31 H Total Protein 8.7 H Urine Urobilinogen 4.0 H - Diagnostic Test Radiology reviewed: Image reviewed, Reports reviewed - Chest x-ray shows no infiltrates - EKG Interpretation by Nm Rate: Normal Rhythm: NSR - EKG shows normal sinus rhythm with a ventricular rate of 71, no acute ST-T wave changes Discharge - Discharge Clinical Impression: Chest pain Condition: Stable Disposition: HOME, SELF-CARE Additional Instructions: As we discussed, your labs and heart tests look good. Your EKG look good as well. It is important, I want you to stop using the cocaine because this absolutely will increase your risk of heart attack and . I would continue your current medicines and follow-up with your primary care doctor. Return to the emergency room for any worsening symptoms. Forms: Return to Work Referrals: SUZIE THOMAS DO [Primary Care Provider] - Follow up tomorrow
[2018-12-29 20:28] LABS: APPEARANCE,URINE CLEAR; BILIRUBIN,URINE NEGATIVE (NEGATIVE); COLOR,URINE YELLOW; GLUCOSE, URINE NEGATIVE (NEGATIVE); KETONES,URINE NEGATIVE (NEGATIVE); LEUKOCYTE ESTERASE,URINE NEGATIVE (NEGATIVE); NITRITE,URINE NEGATIVE (NEGATIVE); PROTEIN,URINE NEGATIVE (NEGATIVE); URINE SPECIFIC GRAVITY 1.025
[2018-12-29 20:33] LABS: URINE AMPHETAMINES SCREEN NEGATIVE; URINE BARBITURATES SCREEN NEGATIVE; URINE BENZODIAZEPINES SCREEN NEGATIVE; URINE COCAINE SCREEN UNCONFIRMED POSITIVE; URINE MARIJUANA (THC) SCREEN NEGATIVE; URINE METHADONE SCREEN NEGATIVE; URINE PHENCYCLIDINE SCREEN NEGATIVE
[2018-12-30 00:13] VITALS: BP 99/75
== END 2018-12-30 00:27 | disposition home or self-care (01) ==
LOC: ER 16:40
DX: R07.89 Other chest pain (principal); F14.10 Cocaine abuse, uncomplicated; R20.0 Anesthesia of skin; I10 Essential (primary) hypertension; J45.909 Unspecified asthma, uncomplicated; Z88.1 Allergy status to other antibiotic agents; Z88.2 Allergy status to sulfonamides; Z88.8 Allergy status to other drugs, medicaments and biological substances; Z82.49 Family history of ischemic heart disease and other diseases of the circulatory system; Z21 Asymptomatic human immunodeficiency virus [HIV] infection status
CPT/HCPCS: 36415; 71046; 80053; 80307; 81001; 83690; 84484; 85025; 93005; 93010; 99284

== ENCOUNTER 2019-03-16 12:19 | Emergency (ER) | payer OTHER, MEDICARE, MEDICAID ==
--- NOTE | 2019-03-16 13:06 | ER Document Report ---
ED Medical Screen (RME) - General Chief Complaint: Chest Pain Stated Complaint: CHEST DISCOMFORT Time Seen by Provider: 03/16/19 13:01 Primary Care Provider: SUZIE THOMAS DO [Primary Care Provider] - Follow up as needed TRAVEL OUTSIDE OF THE [place] IN LAST 30 DAYS: No - HPI Notes: 03/16/19 13:04 Pt is a 48yo male with a h/o of asthma and HTN who presents c/o intermittent cp that began today with occ sob and rt arm pain. Pt states that he has had a dec PO intake today. The discomfort was described as 'pressure' in the chest. He currently does not have any discomfort or sob. Denies any prolonged immobilization, distance travel, recent surgery/trauma, personal cancer history, hormone use, or previous DVT/PE. Denies HUNT, fever, neck pain, URI, n/v/d, Abd pain, dysuria, back pain, or rash. I have treated and performed a rapid initial assessment of this patient. A comprehensive ED assessment and evaluation of the patient, analysis of test results and completion of medical decision making process will be conducted by additional ED providers. PHYSICAL EXAMINATION: GENERAL: Well-appearing, well-nourished and in no acute distress. A&Ox4. Answers questions appropriately. LUNGS: Breath sounds clear to auscultation bilaterally and equal. No wheezes rales or rhonchi. HEART: Regular rate and rhythm without murmurs, rubs, gallops. Extremities: No cyanosis, clubbing, or edema b/l. Davey negative bilaterally. No lower extremity asymmetry. Abd: grossly nontender. NEUROLOGICAL: Normal speech, normal gait. PSYCH: Normal mood, normal affect. - Related Data Allergies/Adverse Reactions: ciprofloxacin [Ciprofloxacin] Allergy (Intermediate, Verified 03/16/19 12:20) rash Sulfa (Sulfonamide Antibiotics) Allergy (Intermediate, Verified 03/16/19 12:20) rash tetracycline [Tetracycline] Allergy (Intermediate, Verified 03/16/19 12:20) hives, rash tiotropium [From Spiriva with HandiHaler] Allergy (Verified 03/16/19 12:20) silver [From Tegaderm AG Mesh] Adverse Reaction (Severe, Verified 03/16/19 12:20) rash codeine [Codeine] Adverse Reaction (Intermediate, Verified 08/21/19 12:20) upset stomach Past Medical History - Past Medical History Cardiac Medical History: Reports: Hx Hypertension Denies: Hx Coronary Artery Disease, Hx Heart Attack Pulmonary Medical History: Reports: Hx Asthma, Hx Bronchitis, Hx Pneumonia Denies: Hx COPD, Hx Sleep Apnea, Hx Tuberculosis Neurological Medical History: Reports: Hx Migraine. Denies: Hx Cerebrovascular Accident, Hx Seizures Renal/ Medical History: Reports: Hx Benign Prostatic Hyperplasia, Hx Kidney Stones. Denies: Hx Peritoneal Dialysis Musculoskeltal Medical History: Denies Hx Arthritis Skin Medical History: Reports Hx Cellulitis, Reports Hx Psoriasis Psychiatric Medical History: Reports: Hx Anxiety, Hx Bipolar Disorder Denies: Hx Depression Infectious Medical History: Reports: Hx HIV Past Surgical History: Reports: Hx Rectal Surgery, Other - Port-A-Cath, anal biopsy. Denies: Hx Pacemaker - Immunizations Immunizations up to date: Yes Hx Diphtheria, Pertussis, Tetanus Vaccination: Yes Doctor's Discharge - Discharge Referrals: SUZIE THOMAS DO [Primary Care Provider] - Follow up as needed
[2019-03-16 13:25] LABS: ABSOLUTE LYMPHOCYTES (AUTO) 1.1 10^3/uL (0.5-4.7); ABSOLUTE MONOCYTES (AUTO) 0.3 10^3/uL (0.1-1.4); ABSOLUTE NEUT (AUTO) 1.5 10^3/uL (1.7-8.2); BASOPHILS % (AUTO) 0.8 % (0-2); EOSINOPHILS % (AUTO) 0.1 % (0-6); HEMATOCRIT 46.2 % (37.9-51.0); HEMOGLOBIN 15.7 g/dL (13.5-17.0); LYMPHOCYTES % (AUTO) 37.2 % (13-45); MEAN CORPUSCULAR HGB CONC 34.1 g/dL (32.0-36.0); MEAN CORPUSCULAR VOLUME 88 fl (80-97); MONOCYTES % (AUTO) 11.2 % (3-13); PLATELET COUNT 163 10^3/uL (150-450); RED BLOOD COUNT 5.26 10^6/uL (4.35-5.55); RED CELL DISTRIBUTION WIDTH 14.5 % (11.5-14.0); SEGMENTED NEUTROPHILS % (AUTO) 50.7 % (42-78); TOTAL CELLS COUNTED % (AUTO) 100 %
--- NOTE | 2019-03-16 13:41 | RADIOLOGY REPORT (SQ) ---
EXAM DESCRIPTION: CHEST SINGLE VIEW COMPLETED DATE/TIME: 03/16/2019 1:31 pm REASON FOR STUDY: CP COMPARISON: 12/29/2018 EXAM PARAMETERS: NUMBER OF VIEWS: One view. TECHNIQUE: Single frontal radiographic view of the chest acquired. RADIATION DOSE: NA LIMITATIONS: None. FINDINGS: LUNGS AND PLEURA: No opacities, masses or pneumothorax. No pleural effusion. MEDIASTINUM AND HILAR STRUCTURES: No masses. Contour normal. HEART AND VASCULAR STRUCTURES: Heart normal in size. Normal vasculature. BONES: No acute findings. HARDWARE: None in the chest. OTHER: No other significant finding. IMPRESSION: NO ACUTE RADIOGRAPHIC FINDING IN THE CHEST. TECHNICAL DOCUMENTATION: JOB ID: [id number] [employer]- All Rights Reserved Reading location - IP/workstation name: [email or web address]
[2019-03-16 13:46] LABS: ALBUMIN 4.8 g/dL (3.5-5.0); ALKALINE PHOSPHATASE 69 U/L (38-126); ANION GAP 10 (5-19); ASPARTATE AMINO TRANSFERASE 35 U/L (17-59); BILIRUBIN,DIRECT 0.4 mg/dL (0.0-0.4); BILIRUBIN,TOTAL 0.6 mg/dL (0.2-1.3); BLOOD UREA NITROGEN 13 mg/dL (7-20); CALCIUM 10.1 mg/dL (8.4-10.2); CARBON DIOXIDE 29 mmol/L (22-30); CHLORIDE 103 mmol/L (98-107); GLUCOSE 102 mg/dL (75-110); POTASSIUM 3.8 mmol/L (3.6-5.0); TOTAL PROTEIN 9.5 g/dL (6.3-8.2)
[2019-03-16 14:03] LABS: NT PRO BNP 19 pg/mL (<125)
[2019-03-16 14:04] LABS: TROPONIN I < 0.012 ng/mL
--- NOTE | 2019-03-16 14:43 | ER Document Report ---
ED General - General Chief Complaint: Chest Pain Stated Complaint: CHEST DISCOMFORT Time Seen by Provider: 03/16/19 13:01 Primary Care Provider: SUZIE CUEVA DO [Primary Care Provider] - Follow up as needed TRAVEL OUTSIDE OF THE [place] IN LAST 30 DAYS: No - HPI Notes: Patient is a 48-year-old male who presents the emergency department for evaluation of chest pain. It seems to be across his lower chest diffusely. It occasionally radiates into his right arm. He had about 5 episodes since last night. They have all occurred at rest. He cannot really describe the pain for me. Nothing seems to make it better or worse. He does describe some associated shortness of breath. On further questioning the patient also states he started having some calf pain on the left last night as well. It seemed to resolve on its own. He denies any recent fevers. He denies feeling short of breath now, and has no chest pain at this time. - Related Data Allergies/Adverse Reactions: ciprofloxacin [Ciprofloxacin] Allergy (Intermediate, Verified 03/16/19 12:20) rash Sulfa (Sulfonamide Antibiotics) Allergy (Intermediate, Verified 03/16/19 12:20) rash tetracycline [Tetracycline] Allergy (Intermediate, Verified 03/16/19 12:20) hives, rash tiotropium [From Spiriva with HandiHaler] Allergy (Verified 03/16/19 12:20) silver [From Tegaderm AG Mesh] Adverse Reaction (Severe, Verified 03/16/19 12:20) rash codeine [Codeine] Adverse Reaction (Intermediate, Verified 03/16/19 12:20) upset stomach Past Medical History - General Information source: Patient - Social History Smoking Status: Never Smoker Frequency of alcohol use: Heavy Drug Abuse: Cocaine - Last used 3 days ago Family History: CAD, DM, Hypertension, Thyroid Disfunction, Other - Brother heart attack at age 45 Patient has suicidal ideation: No Patient has homicidal ideation: No - Past Medical History Cardiac Medical History: Reports: Hx Hypercholesterolemia - Attempting control with diet, Hx Hypertension Denies: Hx Coronary Artery Disease, Hx Heart Attack Pulmonary Medical History: Reports: Hx Asthma, Hx Bronchitis, Hx Pneumonia Denies: Hx COPD, Hx Sleep Apnea, Hx Tuberculosis Neurological Medical History: Reports: Hx Migraine. Denies: Hx Cerebrovascular Accident, Hx Seizures Renal/ Medical History: Reports: Hx Benign Prostatic Hyperplasia, Hx Kidney Stones. Denies: Hx Peritoneal Dialysis Malignancy Medical History: Reports Other - History of rectal cancer, status post chemo and radiation, in remission Musculoskeletal Medical History: Denies Hx Arthritis Skin Medical History: Reports Hx Cellulitis, Reports Hx Psoriasis Psychiatric Medical History: Reports: Hx Anxiety, Hx Bipolar Disorder Denies: Hx Depression Infectious Medical History: Reports: Hx HIV Past Surgical History: Reports: Hx Rectal Surgery, Other - Port-A-Cath, anal biopsy. Denies: Hx Pacemaker - Immunizations Immunizations up to date: Yes Hx Diphtheria, Pertussis, Tetanus Vaccination: Yes Hx Pneumococcal Vaccination: 04/26/15 Review of Systems - Review of Systems Constitutional: No symptoms reported EENT: No symptoms reported Cardiovascular: See HPI Respiratory: See HPI Gastrointestinal: No symptoms reported Genitourinary: No symptoms reported Musculoskeletal: See HPI Skin: No symptoms reported Neurological/Psychological: No symptoms reported Physical Exam - Vital signs Vitals: Pulse Ox 98 03/16/19 13:02 - Notes Notes: This is a pleasant 48-year-old male who appears stated age in no acute distress. Vital signs reviewed, please refer to chart. Head is normocephalic, atraumatic. Pupils equal round, reactive to light. Neck is supple without meningismus. Heart is regular rate and rhythm. Lungs are clear to auscultation bilaterally. Abdomen is soft, nontender, normoactive bowel sounds throughout. Extremities without cyanosis, clubbing. Patient does have left posterior calf tenderness. Right calf is nontender. Peripheral pulses are equal. Skin is warm and dry. Patient is awake, alert, neurological exam is nonfocal. Examination of the right upper extremity yields no obvious deformity. He does have tenderness to palpation over the biceps. Negative apprehension. Neurovascularly intact of the right upper extremity. Course - Re-evaluation Re-evalutation: 03/16/19 14:42 Patient presents emergency department for evaluation. Certainly this 48-year-old male with hypertension, hyperlipidemia, and cocaine use heart risk for acute coronary syndrome. His chest pain is atypical, however. He has not used crack cocaine in several days. His EKG is unremarkable. His work-up here thus far is unremarkable. Because of his cancer history and his left leg pain, I am inclined to evaluate for DVT. Venous Doppler ordered. Patient remains chest pain-free, will continue to monitor. 03/16/19 15:33 Unofficial report on venous Dopplers that it is negative. He has had chest pain similar to this in the past without the right arm pain. I believe his right arm pain is musculoskeletal. We talked at length about the patient's risk factors. He was strongly advised to stop using cocaine. He voiced understanding to this. He is to follow-up with Dr. Cueva. Certainly he has risk factors and he is strongly advised to address them. He voiced understanding to this as well. Otherwise he is to apply moist heat to the arm. Tylenol as needed for pain. Return to the ED with worsening or new concerning symptoms of any sort. - Vital Signs Vital signs: Temp Pulse Resp BP Pulse Ox 98.7 F 16 125/79 97 03/16/19 13:18 03/16/19 14:01 03/16/19 14:01 03/16/19 14:01 - Laboratory Result Diagrams: 03/16/19 12:56 03/16/19 12:56 Laboratory results interpreted by me: 03/16/19 03/16/19 12:56 12:56 WBC 3.0 L RDW 14.5 H Absolute Neuts (auto) 1.5 L Total Protein 9.5 H - Diagnostic Test Radiology reviewed: Reports reviewed Radiology results interpreted by me: 03/16/19 14:43 Chest X-Ray 03/16/19 13:02 IMPRESSION: NO ACUTE RADIOGRAPHIC FINDING IN THE CHEST. - EKG Interpretation by Me Additional EKG results interpreted by me: 03/16/19 14:43 Sinus mechanism with a rate of 81 bpm. Normal axis and intervals, no acute ST changes concerning for ischemia or infarction. Discharge - Discharge Clinical Impression: Chest pain in adult, Right arm pain Condition: Stable Disposition: HOME, SELF-CARE Instructions: Chest Pain of Unclear Cause ([facility]) Additional Instructions: Follow-up with your primary care physician this week. If you develop increased pain, or new or concerning symptoms of any sort, return immediately to the emergency department for evaluation. Referrals: SUZIE CUEVA, [Primary Care Provider] - Follow up as needed
--- NOTE | 2019-03-16 15:29 | RADIOLOGY REPORT (SQ) ---
EXAM DESCRIPTION: VENOUS UNILATERAL LOWER COMPLETED DATE/TIME: 03/16/2019 3:20 pm REASON FOR STUDY: LEFT CALF PAIN COMPARISON: None. TECHNIQUE: Dynamic and static dowling scale and color images acquired of the left leg venous system. Se lected spectral images acquired with additional compression and augmentation maneuvers. The contralat eral common femoral vein and saphenofemoral junction were also imaged. Images stored on PACS. LIMITATIONS: None. FINDINGS: COMMON FEMORAL: Normal phasicity, compression and augmentation. No visualized echogenic ma terial on dowling scale. No defects on color images. FEMORAL: Normal compression and augmentation. No visualized echogenic material on dowling scale. No defe cts on color images. POPLITEAL: Normal compression, augmentation. No visualized echogenic material on dowling scale. No defec ts on color images. CALF VESSELS: Normal compression, augmentation. No visualized echogenic material on dowling scale. No de fects on color images. GSV and SSV: Normal compression, augmentation. No visualized echogenic material on dowling scale. No def ects on color images. ANY DEEP VENOUS INSUFFICIENCY: Not evaluated. ANY EVIDENCE OF POPLITEAL CYST: No. OTHER: No other significant finding. CONTRALATERAL COMMON FEMORAL VEIN AND SAPHENOFEMORAL JUNCTION: Normal phasicity, compression and augmentation. No visualized echogenic material on dowling scale. No de fects on color images. IMPRESSION: NO EVIDENCE OF DVT OR SVT IN THE LEFT LEG. TECHNICAL DOCUMENTATION: JOB ID: [id number] [employer]- All Rights Reserved Reading location - IP/workstation name: [email or web address]
[2019-03-16 15:40] VITALS: BP 113/83
--- NOTE | 2019-03-16 17:31 | EKG REPORT ---
SEVERITY:- NORMAL ECG - SINUS RHYTHM : Confirmed by: Romy Gallardo MD 16-Mar-2019 17:30:05
== END 2019-03-16 15:51 | disposition home or self-care (01) ==
LOC: ER 12:19
DX: R07.89 Other chest pain (principal); M79.601 Pain in right arm; M79.662 Pain in left lower leg; R06.02 Shortness of breath; F14.10 Cocaine abuse, uncomplicated; Z82.49 Family history of ischemic heart disease and other diseases of the circulatory system; I10 Essential (primary) hypertension; J45.909 Unspecified asthma, uncomplicated; Z87.01 Personal history of pneumonia (recurrent); Z85.048 Personal history of other malignant neoplasm of rectum, rectosigmoid junction, and anus; Z92.21 Personal history of antineoplastic chemotherapy; Z92.3 Personal history of irradiation; Z88.1 Allergy status to other antibiotic agents; Z88.2 Allergy status to sulfonamides; Z88.8 Allergy status to other drugs, medicaments and biological substances
CPT/HCPCS: 36415; 71045; 80053; 83880; 84484; 85025; 93005; 93010; 93971; 99285

== ENCOUNTER → 2019-12-26 | Outpatient (CLI) | payer MEDICARE ==
--- NOTE | 2019-12-26 17:05 | RADIOLOGY REPORT (SQ) ---
EXAM DESCRIPTION: SHOULDER RIGHT 2 OR MORE VIEWS IMAGES COMPLETED DATE/TIME: 12/26/2019 4:38 pm REASON FOR STUDY: PAIN IN RIGHT SHOULDER M25.511 PAIN IN RIGHT SHOULDER COMPARISON: None. NUMBER OF VIEWS: Three views. TECHNIQUE: Internal rotation, external rotation, and Y view images acquired of the right shoulder. LIMITATIONS: None. FINDINGS: MINERALIZATION: Normal. BONES: No acute fracture. No worrisome bone lesions. JOINTS: No dislocation. VISUALIZED LUNGS AND RIBS: No pneumothorax. No rib fracture. SOFT TISSUES: No radiopaque foreign body. OTHER: No other significant finding. IMPRESSION: NEGATIVE STUDY OF THE RIGHT SHOULDER. NO RADIOGRAPHIC EVIDENCE OF ACUTE INJURY. TECHNICAL DOCUMENTATION: JOB ID: [id number] [employer]- All Rights Reserved Reading location - IP/workstation name: [email or web address]
== END ==
LOC: OD 16:21
PROVIDERS: ATTEND Family Medicine
DX: M25.511 Pain in right shoulder (principal)

== ENCOUNTER 2020-03-12 08:24 | Emergency (ER) | payer MEDICARE ==
[2020-03-12] MEDS ORDERED: DIPH/PERTUSS(ACELL)/TETANUS VAC/PF 0.5 ML SYR (>=10YO) IM ONE (10:00)
[2020-03-12] MEDS ORDERED: OXYCODONE-ACETAMINOPHEN 5-325 MG TABLET PO ONE (10:02)
--- NOTE | 2020-03-12 10:06 | ER Document Report ---
HPI - HPI Patient complains to provider of: Left fifth toe injury Time Seen by Provider: 03/12/20 09:40 Onset: Other - 3 weeks ago Onset/Duration: Persistent Pain Level: Denies Context: Patient states that he cut his toe on an unknown object 3 weeks ago. Patient states that he thought it may have been infected and had a friend attempt to open the wound on the bottom of his foot 2 days ago with a blade. Patient states that 2 days ago he kicked a toolbox and had increased pain. Patient de nies any history of diabetes. Patient denies any fever. Patient denies any purulent drainage from the foot. Associated Symptoms: Other - Left fifth toe pain. denies: Fever Exacerbated by: Movement Relieved by: Denies Similar symptoms previously: No Recently seen / treated by doctor: No - ROS ROS below otherwise negative: Yes Systems Reviewed and Negative: Yes All other systems reviewed and negative - CONSTITUTIONAL Constitutional: DENIES: Fever, Chills - NEURO Neurology: DENIES: Weakness - MUSCULOSKELETAL Musculoskeletal: REPORTS: Extremity pain, Swelling - DERM Skin Color: Ecchymosis Notes: Wound to the plantar surface Past Medical History - General Information source: Patient - Social History Smoking Status: Never Smoker Frequency of alcohol use: Occasional Drug Abuse: None Occupation: [employer] Family History: CAD, DM, Hypertension, Thyroid Disfunction, Other - Brother heart attack at age 45 - Past Medical History Cardiac Medical History: Reports: Hx Hypercholesterolemia - Attempting control with diet, Hx Hypertension Pulmonary Medical History: Reports: Hx Asthma, Hx Bronchitis, Hx Pneumonia Neurological Medical History: Reports: Hx Migraine. Denies: Hx Cerebrovascular Accident, Hx Seizures Renal/ Medical History: Reports: Hx Benign Prostatic Hyperplasia, Hx Kidney Stones. Denies: Hx Peritoneal Dialysis Musculoskeletal Medical History: Denies Hx Arthritis Skin Medical History: Reports Hx Cellulitis, Reports Hx Psoriasis Psychiatric Medical History: Reports: Hx Anxiety, Hx Bipolar Disorder Denies: Hx Depression Infectious Medical History: Reports: Hx HIV Past Surgical History: Reports: Hx Rectal Surgery, Other - Port-A-Cath, anal biopsy - Immunizations Immunizations up to date: Yes Hx Diphtheria, Pertussis, Tetanus Vaccination: Yes Hx Pneumococcal Vaccination: 04/26/15 Vertical Provider Document - CONSTITUTIONAL Agree With Documented VS: Yes Exam Limitations: No Limitations General Appearance: WD/WN, No Apparent Distress - INFECTION CONTROL TRAVEL OUTSIDE OF THE [place] IN LAST 30 DAYS: No - HEENT HEENT: Atraumatic, Normocephalic - NECK Neck: Normal Inspection, Supple. negative: Lymphadenopathy-Left, Lymphadenopath y-Right - RESPIRATORY Respiratory: Breath Sounds Normal, No Respiratory Distress - CARDIOVASCULAR Cardiovascular: Regular Rate, Regular Rhythm Pulses: Normal: Dorsalis pedis - MUSCULOSKELETAL/EXTREMETIES Musculoskeletal/Extremeties: MAEW, FROM, Tender - Tenderness to left fifth toe with ecchymosis to the plantar surface of the fifth toe with edema, Edema - NEURO Level of Consciousness: Awake, Alert, Appropriate Motor/Sensory: No Motor Deficit - DERM Integumentary: Warm, Dry Course - Re-evaluation Re-evalutation: 03/12/20 11:[address] Pennington, Dr. Pennington to bedside for examination. Advises performing incision and drainage procedure and placing patient on antibiotics for likely abscess. - Vital Signs Vital signs: Temp Pulse Resp BP Pulse Ox 98.1 F 71 14 127/82 H 100 03/12/20 08:31 03/12/20 08:31 03/12/20 08:31 03/12/20 08:31 03/12/20 08:31 - Laboratory Result Diagrams: 03/12/20 09:33 03/12/20 09:33 Laboratory results interpreted by me: 03/12/20 17:44 Labs- All tests 24 hr 03/12/20 03/12/20 09:33 09:33 WBC 3.7 L RBC 4.69 Hgb 14.7 Hct 42.2 MCV 90 MCH 31.3 MCHC 34.8 RDW 13.6 Plt Count 197 Lymph % (Auto) 31.1 [place] % (Auto) 8.4 Eos % (Auto) 0.8 Baso % (Auto) 0.4 Absolute Neuts (auto) 2.2 Absolute Lymphs (auto) 1.1 Absolute Monos (auto) 0.3 Absolute Eos (auto) 0.0 Absolute Basos (auto) 0.0 Seg Neutrophils % 59.3 Sodium 134.7 L Potassium 4.6 Chloride 103 Carbon Dioxide 26 Anion Gap 6 BUN 15 Creatinine 0.93 Est GFR ( Amer) > 60 Est GFR (MDRD) Non-Af > 60 Glucose 102 Calcium 9.7 Total Bilirubin 0.3 Direct Bilirubin 0.0 Neonat Total Bilirubin Not Reportable Neonat Direct Bilirubin Not Reportable Neonat Indirect Bili Not Reportable AST 25 ALT 25 Alkaline Phosphatase 54 Total Protein 7.2 Albumin 3.8 - Diagnostic Test Radiology reviewed: Reports reviewed Procedures - Incision and Drainage Left Toe 5th digit Type: Simple Anesthetic type: 1% Lidocaine Blade size: 11 I&D procedure: Betadine prep applied Incision Method: Incision made by scalpel Amount/type of drainage: Patient with moderate amount of purulent bloody drainage Discharge - Discharge Clinical Impression: Encounter for incision and drainage procedure Toe abscess Qualifiers: Laterality: left Qualified Code(s): L02.612 - Cutaneous abscess of left foot Toe sprain Qualifiers: Encounter type: initial encounter Qualified Code(s): S93.509A - Unspecified sprain of unspecified toe(s), initial encounter Condition: Stable Disposition: HOME, SELF-CARE Instructions: Abscess ([facility]), Clindamycin ([facility]), Post Incision and Drainage, Post-Op Shoe ([facility]), Sprained Toe ([facility]) Additional Instructions: Return immediately for any new or worsening symptoms Followup with your primary care provider, call tomorrow to make a followup appointment Wound culture is pending, we will call if you need any different treatment Change dressing daily and monitor for any worsening signs of infection such as redness, streaks, fever, increased purulent drainage or any concerning new symptoms Prescriptions: Clindamycin HCl 300 mg PO QID #28 capsule Hydrocodone/Acetaminophen [[place] 5-325 mg Tablet] 1 tab PO Q6 PRN #6 tablet PRN Reason: Referrals: SUZIE THOMAS DO [Primary Care Provider] - Follow up as needed
[2020-03-12 11:01] LABS: ABSOLUTE LYMPHOCYTES (AUTO) 1.1 10^3/uL (0.5-4.7); ABSOLUTE MONOCYTES (AUTO) 0.3 10^3/uL (0.1-1.4); ABSOLUTE NEUT (AUTO) 2.2 10^3/uL (1.7-8.2); BASOPHILS % (AUTO) 0.4 % (0-2); EOSINOPHILS % (AUTO) 0.8 % (0-6); HEMATOCRIT 42.2 % (37.9-51.0); HEMOGLOBIN 14.7 g/dL (13.5-17.0); LYMPHOCYTES % (AUTO) 31.1 % (13-45); MEAN CORPUSCULAR HEMOGLOBIN 31.3 pg (27.0-33.4); MEAN CORPUSCULAR HGB CONC 34.8 g/dL (32.0-36.0); MEAN CORPUSCULAR VOLUME 90 fl (80-97); MONOCYTES % (AUTO) 8.4 % (3-13); PLATELET COUNT 197 10^3/uL (150-450); RED BLOOD COUNT 4.69 10^6/uL (4.35-5.55); RED CELL DISTRIBUTION WIDTH 13.6 % (11.5-14.0); SEGMENTED NEUTROPHILS % (AUTO) 59.3 % (42-78); TOTAL CELLS COUNTED % (AUTO) 100 %; WHITE BLOOD COUNT 3.7 10^3/uL (4.0-10.5)
--- NOTE | 2020-03-12 11:05 | RADIOLOGY REPORT (SQ) ---
EXAM DESCRIPTION: TOE LEFT IMAGES COMPLETED DATE/TIME: 03/12/2020 10:52 am REASON FOR STUDY: kicked tool box, L 5th toe COMPARISON: None. NUMBER OF VIEWS: Three views. TECHNIQUE: AP, lateral, and oblique images acquired of the left fifth toe. LIMITATIONS: None. FINDINGS: MINERALIZATION: Normal. BONES: No acute fracture or dislocation. No worrisome bone lesions. JOINTS: No effusions. SOFT TISSUES: There is soft tissue edema. OTHER: No other significant finding. IMPRESSION: Soft tissue edema. No displaced fracture. COMMENT: SITE OF TRAUMA/COMPLAINT MARKED/STAMP COMPLETED: NOT APPLICABLE. TECHNICAL DOCUMENTATION: JOB ID: [id number] 2010 [email or web address]- All Rights Reserved Reading location - IP/workstation name: [email or web address]
[2020-03-12 11:08] LABS: ALBUMIN 3.8 g/dL (3.5-5.0); ALKALINE PHOSPHATASE 54 U/L (38-126); ANION GAP 6 (5-19); ASPARTATE AMINO TRANSFERASE 25 U/L (17-59); BILIRUBIN,TOTAL 0.3 mg/dL (0.2-1.3); BLOOD UREA NITROGEN 15 mg/dL (7-20); CALCIUM 9.7 mg/dL (8.4-10.2); CARBON DIOXIDE 26 mmol/L (22-30); CHLORIDE 103 mmol/L (98-107); GLUCOSE 102 mg/dL (75-110); POTASSIUM 4.6 mmol/L (3.6-5.0); TOTAL PROTEIN 7.2 g/dL (6.3-8.2)
--- NOTE | 2020-03-12 11:19 | ER Document Report ---
Doctor's Note Notes: 03/12/20 11:17 This is a 49-year-old male being treated for HIV I was asked to see along with the midlevel provider because of concern about an ecchymotic area beneath the small toe of the left foot. Patient had sustained superficial laceration in this area couple weeks ago and then subsequently reinjured the area when he bumped into a toolbox while walking barefooted within the last couple days. He then also had a friend "nicked the area" hoping to see if he could drain something out of the wound. Exam shows minimal soft tissue swelling and tenderness at the base of the plantar surface of the left small toe. There is no redness or warmth. There is no spontaneous drainage. He does not have a fever and his white count is normal. Blood sugar is normal. I recommend that the area be locally anesthetized prepped and draped in sterile fashion with limited I&D and he should be started on oral clindamycin and soaks and followed up as an outpatient.
[2020-03-12] MEDS ORDERED: CLINDAMYCIN 600 MG/D5W RTU 600 MG/50 ML RTUPB IV ONE (11:31)
[2020-03-12 13:32] VITALS: BP 123/76
== END 2020-03-12 13:25 | disposition home or self-care (01) ==
LOC: ER 08:24
DX: L02.612 Cutaneous abscess of left foot (principal); S93.509A Unspecified sprain of unspecified toe(s), initial encounter; W22.8XXA Striking against or struck by other objects, initial encounter; Y93.01 Activity, walking, marching and hiking; I10 Essential (primary) hypertension; J45.909 Unspecified asthma, uncomplicated; Z21 Asymptomatic human immunodeficiency virus [HIV] infection status
CPT/HCPCS: 99284; 90471; 96365; 36415; 87070; 87205; 85025; 87077; 80053; 87186; 73660; 90715; 10060; A9270

== ENCOUNTER → 2020-06-04 | Outpatient (CLI) | payer MEDICARE ==
--- NOTE | 2020-06-04 18:44 | RADIOLOGY REPORT (SQ) ---
EXAM DESCRIPTION: ANKLE RIGHT COMPLETE IMAGES COMPLETED DATE/TIME: 06/04/2020 6:01 pm REASON FOR STUDY: (S99.911A)UNSPECIFIED INJURY OF RIGHT ANKLE, INITIAL ENCOUNTER S99.911A UNSPECIFI ED INJURY OF RIGHT ANKLE, INITIAL ENCOUNTE COMPARISON: None. NUMBER OF VIEWS: Three views. TECHNIQUE: AP, lateral, and oblique radiographic images acquired of the right ankle. LIMITATIONS: None. FINDINGS: MINERALIZATION: Normal. BONES: No acute fracture or dislocation. No worrisome bone lesions. JOINTS: No effusions. SOFT TISSUES: No soft tissue swelling. No foreign body. OTHER: No other significant finding. IMPRESSION: NEGATIVE STUDY OF THE RIGHT ANKLE. NO RADIOGRAPHIC EVIDENCE OF ACUTE INJURY. TECHNICAL DOCUMENTATION: JOB ID: [id number] 2010 [employer]- All Rights Reserved Reading location - IP/workstation name: [email or web address]
== END ==
LOC: RAD 17:43
PROVIDERS: ATTEND Family Medicine
DX: S99.911A Unspecified injury of right ankle, initial encounter (principal); X58.XXXA Exposure to other specified factors, initial encounter

== ENCOUNTER 2020-08-08 21:03 | Emergency (ER) | payer OTHER, MEDICARE ==
[2020-08-08 21:32] VITALS: BP 138/77
--- NOTE | 2020-08-08 22:20 | ER Document Report ---
ED General - General Chief Complaint: Blood Pressure Problem Stated Complaint: BLOOD PRESSURE PROBLEMS Time Seen by Provider: 08/08/20 22:10 Primary Care Provider: SUZIE THOMAS DO [Primary Care Provider] - Follow up as needed TRAVEL OUTSIDE OF THE [place] IN LAST 30 DAYS: No - HPI Notes: Patient is a 50 y/o male with a hx of migraines and Mnire's disease who presents with a concern for elevated blood pressure. He states he has been tracking his BP and been following up with his PCP. He states his blood pressure typically runs systolic of 117 but was concerned it was high today as he developed a headache that began earlier today. Patient describes the headache as right temporal and parietal that wraps around his head. He took ibuprofen earlier today with some relief. He denies any chest pain, shortness of breath, abdominal pain, blurred vision, dizziness and vomiting. He reports occasional alcohol use but denies any tobacco use. Patient has a hx of anal cancer but is not currently receiving treatment. - Related Data Allergies/Adverse Reactions: ciprofloxacin [Ciprofloxacin] Allergy (Intermediate, Verified 03/16/19 12:20) rash Sulfa (Sulfonamide Antibiotics) Allergy (Intermediate, Verified 03/16/19 12:20) rash tetracycline [Tetracycline] Allergy (Intermediate, Verified 03/16/19 12:20) hives, rash tiotropium [From Spiriva with HandiHaler] Allergy (Verified 03/16/19 12:20) silver [From Tegaderm AG Mesh] Adverse Reaction (Severe, Verified 03/16/19 12:20) rash codeine [Codeine] Adverse Reaction (Intermediate, Verified 03/16/19 12:20) upset stomach Past Medical History - General Information source: Patient - Social History Smoking Status: Unknown if Ever Smoked Family History: CAD, DM, Hypertension, Thyroid Disfunction, Other - Brother heart attack at age 45 - Past Medical History Cardiac Medical History: Reports: Hx Hypercholesterolemia - Attempting control with diet, Hx Hypertension Denies: Hx Coronary Artery Disease, Hx Heart Attack Pulmonary Medical History: Reports: Hx Asthma, Hx Bronchitis, Hx Pneumonia Denies: Hx COPD, Hx Sleep Apnea, Hx Tuberculosis Neurological Medical History: Reports: Hx Migraine. Denies: Hx Cerebrovascular Accident, Hx Seizures Renal/ Medical History: Reports: Hx Benign Prostatic Hyperplasia, Hx Kidney Stones. Denies: Hx Peritoneal Dialysis Musculoskeletal Medical History: Denies Hx Arthritis Skin Medical History: Reports Hx Cellulitis, Reports Hx Psoriasis Psychiatric Medical History: Reports: Hx Anxiety, Hx Bipolar Disorder Denies: Hx Depression Infectious Medical History: Reports: Hx HIV Past Surgical History: Reports: Hx Rectal Surgery, Other - Port-A-Cath, anal biopsy. Denies: Hx Pacemaker - Immunizations Immunizations up to date: Yes Hx Diphtheria, Pertussis, Tetanus Vaccination: Yes Hx Pneumococcal Vaccination: 04/26/15 Review of Systems - Review of Systems Constitutional: No symptoms reported EENT: No symptoms reported Cardiovascular: No symptoms reported Respiratory: No symptoms reported Gastrointestinal: No symptoms reported Genitourinary: No symptoms reported Male Genitourinary: No symptoms reported Musculoskeletal: No symptoms reported Skin: No symptoms reported Hematologic/Lymphatic: No symptoms reported Neurological/Psychological: See HPI Physical Exam - Vital signs Vitals: Temp Pulse Resp BP Pulse Ox 98.1 F 77 14 138/77 H 100 08/08/20 21:31 08/08/20 21:31 08/08/20 21:31 08/08/20 21:08/08/20 21:31 - Notes Notes: PHYSICAL EXAMINATION: VITALS: Vitals reviewed and within normal limits. GENERAL: Well-appearing, well-nourished and in no acute distress. HEAD: Atraumatic, normocephalic. EYES: Pupils equal, round, and reactive to light, extraocular movements intact, sclera anicteric, conjunctiva are normal. ENT: Nares patent. Moist mucous membranes. Oropharynx clear without exudates. NECK: Normal range of motion, supple without lymphadenopathy. LUNGS: Breath sounds clear to auscultation bilaterally and equal. No wheezes, rales, or rhonchi. HEART: Regular, rate, and rhythm without murmurs. ABDOMEN: Soft, nontender, normoactive bowel sounds. No guarding, no rebound. No masses appreciated. EXTREMITIES: Normal range of motion, no pitting or edema. No cyanosis. NEUROLOGICAL: No focal neurological deficits. Moves all extremities spontaneously and on command. Ambulates without difficulty. PSYCH: Normal mood, normal affect. SKIN: Warm, Dry, normal turgor, no rashes or lesions noted. Course - Re-evaluation Re-evalutation: Patient is a 50-year-old male with history of Mnire's disease and migraines who presents with a concern for high blood pressure due to a headache the began earlier today. Vital signs are normal with a BP of 138/77. Presentation of a headache that appears to be most consistent with tension versus migrainous type headache. Headache was not maximal in onset, patient has no focal neurologic deficits, no nuchal rigidity, and patient is overall well in appearance. Based on clinical history and examination I do not suspect an acute subarachnoid hemorrhage, dural venous sinus thrombosis, acute meningitis, or intercranial mass. Given my low clinical suspicion for any acute life-threatening etiology, I do not feel advanced neuro imaging or laboratory testing is indicated at this time. Patient states his headache is improving and would like to be discharged home at this time. I recommended he continue to follow up with his primary care provider concerning his BP and take ibuprofen and tylenol as needed for his headache. Return precautions given. Patient will be discharged home. Patient understands and is agreement with the plan. - Vital Signs Vital signs: Temp Pulse Resp BP Pulse Ox 98.1 F 77 14 138/77 H 100 08/08/20 21:31 08/08/20 21:31 08/08/20 21:31 08/08/20 21:31 08/08/20 21:31 - Laboratory Results Critical Laboratory Results Reviewed: No Critical Results - Radiology Results Critical Radiology Results Reviewed: No Critical Results Discharge - Discharge Clinical Impression: Headache, tension-type Qualifiers: Headache chronicity pattern: acute headache Intractability: not intractable Qualified Code(s): G44.209 - Tension-type headache, unspecified, not intractable Condition: Stable Disposition: HOME, SELF-CARE Additional Instructions: You have been seen in the Emergency Department (ED) for a headache. Please use Tylenol (acetaminophen) or Motrin (ibuprofen) as needed for symptoms, but only as written on the box. As we have discussed, please follow up with your primary care doctor as soon as possible regarding today's ED visit and your headache symptoms. Call your doctor or return to the ED if you have a worsening headache, sudden and severe headache, confusion, slurred speech, facial droop, weakness or numbness in any arm or leg, extreme fatigue, or other symptoms that concern you. Forms: Return to Work Referrals: SUZIE THOMAS DO [Primary Care Provider] - Follow up as needed
== END 2020-08-08 22:45 | disposition home or self-care (01) ==
LOC: ER 21:03
DX: G44.209 Tension-type headache, unspecified, not intractable (principal); I10 Essential (primary) hypertension; B20 Human immunodeficiency virus [HIV] disease
CPT/HCPCS: 99282